=== PATIENT | female | born 1960 | race Caucasian/White ===

== ENCOUNTER → 2018-01-07 10:40 | Outpatient (CLI) | payer OTHER, SELFPAY ==
--- NOTE | 2018-01-07 10:50 | XR_ITS ---
XR shoulder RT min 2V COMPARISON: PA and lateral chest 10/07/2016 HISTORY: Right shoulder pain after a fall TECHNIQUE: 3 views right shoulder FINDINGS: The lateral clavicle appears intact. The AC joint is grossly normal though there is minimal spurring of the proximal clavicle inferiorly. There also is a slightly lateral downsloping acromion process and these 2 findings could predispose to impingement syndrome. Humeral head and glenoid appear intact. There are no soft tissue calcifications. IMPRESSION: Mild degenerative changes of the AC joint along with downsloping acromion process, no definite acute fracture seen
--- NOTE | 2018-01-07 10:54 | XR_ITS ---
XR humerus RT COMPARISON: None HISTORY: Right arm pain after a fall TECHNIQUE: 3 views right humerus FINDINGS: Humeral head and humeral shaft appear intact with no evidence of recent or old fracture. The supracondylar humerus appears normal. The soft tissues are grossly normal with no foreign body seen. IMPRESSION: Negative right humerus
== END ==
PROVIDERS: PCP Internal Medicine; Visit Provider Internal Medicine
DX: M25.511 Pain in right shoulder (principal); M79.601 Pain in right arm
CPT/HCPCS: 73030; 73060

== ENCOUNTER 2018-02-08 09:00 | Outpatient (RCR) | payer OTHER, SELFPAY ==
--- NOTE | 2018-01-21 11:49 | HMH.PTOPEV ---
Rehab Outpatient Evaluation Rehab OP Evaluation Start: 01/21/18 10:32 Freq: Status: Active Protocol: Document 01/21/18 10:33 TFRY (Rec: 01/21/18 10:47 TFRY [id number]) Electronically Signed By Delisa Loyd OT 01/21/18 10:33 Outpatient Therapy Subjective History Subjective History THIS IS A 58 YEAR OLD RIGHT HANDED FEMALE REFERRED TO OCCUPATIONAL THERAPY FOR RIGHT SHOULDER PAIN. PATIENT REPORTS FALLING WITH AN OUTSTRETCHED ARM [place] ON December. PATIENT REPORTS THAT SHE WENT TO HER DOCTORS AND HAD A X-RAY DONE. Chief Complaint Pain Symptom Type Ache Throb Numbness Symptoms Relieved By Nothing Symptoms Aggravated By Physical Activity Prior Functional Limitations None Current Functional Limitations Reaching Lifting Housework Dressing Driving Sleeping Symptom Description Constant and Continuous Level of pain today (0-10) 9 Pain scale - at its best (0-10) 8 Pain scale - at its worst (0-10) 9 Shoulder/Elbow Eval Shoulder Objective Measurements Palpation Tenderness tenderness shoulder exam standard right tenderness over the bicipital tendon right shoulder exam standard Shoulder Palpation Findings Tenderness Flexibilty Deficits Shoulder External Rotators Muscle Length (R) Moderate Tightness Shoulder Internal Rotators Muscle Length (R) Moderate Tightness Upper Trapezius Muscle Length (R) Severe Tightness Shoulder ROM Right Shoulder ROM Limitations Pain Shoulder Abduction Active Range of 38 Motion (degrees) Shoulder Abduction Passive Range of 45 Motion (degrees) Shoulder Flexion Active Range of Motion 40 (degrees) Query Text: Shoulder Flexion Passive Range of Motion 50 (degrees) Shoulder External Rotation Active Range 22 of Motion (degrees) Shoulder External Rotation Passive Range 40 of Motion (degrees) Shoulder Internal Rotation Active Range WFL IN GRAVITY ELIM of Motion (degrees) Shoulder Internal Rotation Passive Range 30 of Motion (degrees) Shoulder Extension Active Range of 30 Motion (degrees) pain with active ROM shoulder exam right standard pain with passive
== END 2018-02-08 09:01 | disposition home or self-care (01) ==
LOC: OT 09:00
PROVIDERS: Family Provider Internal Medicine; PCP Internal Medicine; Visit Provider Internal Medicine
DX: M25.511 Pain in right shoulder (principal)
CPT/HCPCS: 97014; 97033; 97110; 97140; 97163; 97165; G0283

== ENCOUNTER → 2018-02-10 12:57 | Outpatient (CLI) | payer OTHER, SELFPAY ==
--- NOTE | 2018-02-10 13:01 | MR_ITS ---
MR shoulder RT wo con COMPARISON: 01/07/2018 radiograph HISTORY: Right shoulder pain, rotator cuff tear, injury with pain with limited range of motion with pain radiating down the right arm ORDERING PHYSICIAN: Kemar Gerard PATIENT AGE: 58 years TECHNIQUE: Routine multiplanar multiecho sequences are performed without contrast FINDINGS: There is complete tear of the supraspinatus and infraspinatus tendons with retraction of the musculotendinous fibers. There is severe subacromial stenosis of 3 mm. Hypertrophic changes are also present at the acromioclavicular joint. Moderate-sized shoulder joint effusion is present. The subscapularis and teres minor tendons appear intact. There is thickening of the subscapularis tendon with increased T2 signal consistent with tendinopathy/tendinosis. No obvious labral tear. Moderate amount fluid is present in the bicipital tendon sheath which does appear in place. No fracture is evident. There is mild superior location of the humeral head within the glenoid. Mild irregularity involves the humeral head at the greater tuberosity. There is a 7 mm area of decreased T1 and increased T2 signal involving the medial aspect of the proximal humeral shaft posteriorly. No radiographic abnormality apparent at this region. Etiology indeterminate. IMPRESSION: 1. Complete tear of the supraspinatus and infraspinatus tendons with retraction of the musculotendinous fibers. 2. 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 Moderate-sized shoulder joint effusion. 3. Tendinopathy/tendinosis of the subscapularis tendon. 4. Indeterminate 7 mm T2 hyperintensity of the proximal humeral shaft posteriorly and medially. Consider short-term follow-up to confirm stability
== END ==
PROVIDERS: Family Provider Internal Medicine; PCP Internal Medicine; Visit Provider Internal Medicine
DX: M25.511 Pain in right shoulder (principal)
CPT/HCPCS: 73221

== ENCOUNTER 2018-04-07 10:00 | Outpatient (RCR) | payer OTHER, SELFPAY | END 2018-04-07 10:01 | disposition home or self-care (01) | LOC: PT 10:00 | PROVIDERS: Family Provider Internal Medicine; PCP Internal Medicine; Visit Provider Orthopaedic Surgery | DX: M75.101 Unspecified rotator cuff tear or rupture of right shoulder, not specified as traumatic (principal) | CPT/HCPCS: 97010; 97014; 97016; 97110; 97140; 97163; G0283 ==

== ENCOUNTER 2018-07-21 08:00 | Outpatient (RCR) | payer OTHER, SELFPAY | END 2018-07-21 08:01 | disposition home or self-care (01) | LOC: OT 08:00 | PROVIDERS: Family Provider Internal Medicine; PCP Internal Medicine; Visit Provider Orthopaedic Surgery | DX: M75.121 Complete rotator cuff tear or rupture of right shoulder, not specified as traumatic | CPT/HCPCS: 97014; 97110; 97140; 97165; G0283 ==

== ENCOUNTER → 2019-06-30 09:06 | Outpatient (CLI) | payer OTHER, SELFPAY ==
--- NOTE | 2019-06-30 09:17 | XR_ITS ---
PROCEDURE: XR HIP LT 2-3V W/PELVIS Patient Age:59Y CLINICAL INDICATION: hip pain Bilateral hip pain extends down legs 1 month COMPARISON: ABDPELW/O CT ABD PEL from 05/21/2014 FINDINGS: Left hip no fracture or dislocation is evident. No significant degenerative change. No lytic or blastic change. The left hip is intact with no acute findings.. No change since 2014 CT abdomen, pelvis The left femoral head and neck intact and trochanteric region intact The left femoral head normal contour, with normal density. The left hip joint space is fairly well maintained; only question of some scant minor relative narrowing towards superior medial aspect left hip joint space. This was evident on 2014 CT is well. Also suggestion scant sclerosis at roof of left acetabulum more so than right.. Subtle observation, but could reflect reflect some very minor degenerative changes left hip. I would also note that on this and previous studies the left acetabulum and very very slight less coverage of the femoral head than the right. This could merely reflect some early hypertrophic lipping developing at right acetabulum but is noted... Very minor sclerosis seen towards the pubis bilaterally was seen on and 2014 CT exam as was the postsurgical from previous diskectomy and posterior fusion changes lower L-spine IMPRESSION: The left hip is intact with no acute findings.. No change since 2014 CT abdomen, pelvis The hip joint spaces well maintained bilaterally with only question of subtle relative, borderline narrowing towards superior medial aspect of left hip joint space along with minor questionable sclerosis superior left hip joint. The these features could reflect some very subtle early degenerative changes but unimpressive and equivocal. Additional comments in text . Postsurgical changes lower L-spine Dictated by: Dieter Stern MD 06/30/2019 11:22 Electronically signed by Dieter Stern MD in [place] 06/30/2019 11:22
--- NOTE | 2019-06-30 09:17 | XR_ITS ---
PROCEDURE: XR HIP RT 2-3V W/PELVIS Patient Age:59Y CLINICAL INDICATION: hip pain . bilateral hip pain. Radiates down legs 1 month no surgeries, pain with laying on side COMPARISON: ABDPELW/O CT ABD PEL from 05/21/2014 XR HIP LT 2-3V W/PELVIS from 06/30/2019 FINDINGS: Right hip intact. Joint space well maintained. Right femoral head normal contour and density. Acetabulum adequately covers the right femoral head bilaterally, this being very slightly more evident right than left. No fracture or dislocation is evident. AP pelvis. Osseous pelvis intact. The SI joints sacrum unremarkable. Iliac bone unremarkable. Right hip appears satisfactory joint space well maintained on this view. Postsurgical changes lower L-spine. Posterior fusion with disc spacer device in place lower L-spine partially imaged. IMPRESSION: Right hip intact. AP pelvis intact. No acute findings. Stable appearance at hips and pelvis cents CT April 2014 Postsurgical changes lower L-spine: Discectomy with posterior fusion lower L-spine partially imaged again noted Dictated by: Dieter Stern MD 06/30/2019 11:24 Electronically signed by Dieter Stern MD in [place] 06/30/2019 11:24
== END ==
PROVIDERS: PCP Internal Medicine; Visit Provider Orthopaedic Surgery
DX: M25.552 Pain in left hip (principal); M25.551 Pain in right hip
CPT/HCPCS: 73502

== ENCOUNTER → 2019-11-28 10:27 | Outpatient (POV) | payer OTHER, SELFPAY | PROVIDERS: Visit Provider Otolaryngology | DX: Z00.00 Encounter for general adult medical examination without abnormal findings (principal) ==

== ENCOUNTER 2020-01-03 08:30 | Outpatient (RCR) | payer OTHER, SELFPAY | END 2020-01-03 09:30 | disposition home or self-care (01) | LOC: PT 08:30 | PROVIDERS: Visit Provider Internal Medicine | DX: M54.2 Cervicalgia (principal) | CPT/HCPCS: 20560; 97010; 97012; 97014; 97035; 97110; 97163; G0283 ==

== ENCOUNTER → 2020-02-22 13:37 | Outpatient (CLI) | payer OTHER, SELFPAY ==
--- NOTE | 2020-02-22 13:42 | MR_ITS ---
PROCEDURE: MR CERVICAL SPINE WO CON CLINICAL INDICATION: RADICULAR PAIN, LEFT NECK AND UPPER ARM Neck pain, left neck and shoulder pain COMPARISON: [employer]/O MRI-C-SPINE W/O from 05/07/[address] HEAD W/O CONTRAST from 10/07/2016 TECHNIQUE: Standard multiplanar multiecho sequences are performed without contrast. 3-D MIP and myelographic images are also rendered and reviewed FINDINGS: Study is somewhat limited technically due to motion artifact and low signal to noise ratio specially on the axial images. There is normal alignment. The craniocervical junction has an unremarkable appearance. C2-C3 and C3-C4 have an unremarkable appearance. C4-C5: Mild degenerative disc disease with bulging disc. There is mild bilateral uncovertebral hypertrophy. There is mild narrowing of the canal at this level at 10 mm C5-C6: Degenerate disc disease with bulging disc. There is mild bilateral uncovertebral hypertrophy. There is mild narrowing of the canal at this level at 10 mm C6-C7: There is a small broad-based left paracentral disc protrusion causing left lateral recess narrowing. There is 3 mm anterolisthesis of T2 on T3 and T3 on T4. Small central disc protrusion noted at T3-T4 only imaged in the sagittal plane. IMPRESSION: Study is somewhat limited technically due to motion artifact. There is multilevel degenerative disc disease with bulging disc and uncovertebral hypertrophy. Overall, these findings appear slightly worse compared to 05/07/2015 however, it is difficult to this compare the 2 exams due to the limitations on today's exam. Please see above for detail. There is a small left paracentral disc protrusion at C6-C7 not readily apparent on the previous exam. There is a small central disc protrusion at T3-T4. Dictated by: Kendell Madera MD 02/23/2020 10:01 Electronically signed by Kendell Madera MD in [place] 02/23/2020 10:01
== END ==
PROVIDERS: Visit Provider Internal Medicine
DX: M47.22 Other spondylosis with radiculopathy, cervical region (principal)
CPT/HCPCS: 72141; 76376

== ENCOUNTER → 2020-03-12 08:38 | Outpatient (POV) | payer OTHER, SELFPAY ==
[2020-03-12 08:54] VITALS: BP 132/84; PULSE 85; RESP 18; TEMP 36.6; O2SAT 98; BMI 25.7
--- NOTE | 2020-03-12 09:31 | HMH.PMCON ---
Assessment and Plan (1) Degenerative disc disease, cervical Current visit: Yes Status: Chronic Category: Medical Code(s): M50.30 - Other cervical disc degeneration, unspecified cervical region - Assessment and plan all Dx Assessment and Plan for all problems:: We will schedule a C5-C6 cervical epidural steroid injection for the patient to see if this is beneficial. I will follow-up with her after this and reassess her symptoms at that time patient has been instructed to call the office if she has any issues prior to her next appointment. Dr. Little has reviewed this note and agrees with this plan of care. This note was dictated using voice recognition software and may contain errors or omissions HPI - Data of Consult Consult date: 03/12/20 Requesting Physician: Rajwinder Coyle APRN Primary Care Provider: Kemar Gerard - Consult Narrative Reason for consult: Neck pain History of present illness: Ms. Arrington is a 60 year old female who presents today for consultation in regards to cervical neck pain. Patient has had pain for quite some time however it is worsened over the last couple months she rates it a 7 out of 10. She has neck and left shoulder pain. She has trouble sleeping and laying on her left side. She is on meloxicam which does not seem to help. Patient tried physical therapy but it was not beneficial. She also did dry needling which was not beneficial. Patient has had multiple low back surgeries in the past. Patient and I discussed epidural steroid injection she is interested in pursuing this. She is not on any anticoagulation therapy. CC: Rajwinder Coyle APRN [facility] History I have reviewed the patient's past medical history: Yes Medical History: Reports:: Hypertension Denies:: Cancer, Diabetes Mellitus Type 1, Diabetes Mellitus Type 2, MRSA *Have you ever received a pneumonia vaccine?: Yes *Have you received a flu vaccine this season?: Yes Other Medical History: Reports: Arthritis, Hypothyroidism, Thyroid Disease Other Surgeries: Yes: Cholecystectomy, Colonoscopy, Other Amputation: No Fractures: No - *Social History Smoking Status: Never smoker Alcohol Intake: never Substance Use Type: denies use *Occupational Status:: other Housing: house Household Members: other *Travel in the last 8 weeks: None Family Hx:: Unable to obtain Review of Systems - Review of Systems ROS General: no recent weight change, no fever, no sleep disturbances Respiratory: no cough, no shortness of air, no recurring pulmonary infections Cardiovascular/Peripheral Vascular: No chest pain, No palpitations, no edema, no shortness of breath. Gastrointestinal: no new onset incontinence, normal bowel movements reported Genitourinary: no new onset incontinence Musculoskeletal: Neck pain, left shoulder pain Psychiatric: normal mood/ affect, Neurological: [denies new onset weakness in extremities], [denies new onset balance issues] Meds Home Medications Medication Instructions Recorded Confirmed Type levothyroxine 50 mcg capsule 50 mcg PO DAILY 07/27/18 06/30/19 History lisinopril 10 mg tablet 10 mg PO DAILY 07/27/18 06/30/19 History omeprazole 40 mg capsule,delayed 40 mg PO DAILY 06/30/19 06/30/19 History release meloxicam 7.5 mg tablet 7.5 mg PO DAILY #30 tab 01/11/20 Rx Allergies Allergy/AdvReac Type Severity Reaction Status Date / Time No Known Allergies Allergy Verified 06/30/19 09:59 Objective Vital signs: Temp Pulse Resp BP Pulse Ox 97.8 F 85 18 132/84 98 03/12/20 08:54 03/12/20 08:54 03/12/20 08:54 03/12/20 08:54 03/12/20 08:54 Narrative: Physical Exam General: Alert and oriented x3, no acute distress, pleasant and cooperative, [on room air] Lungs: Resps E/U, Symmetrical chest expansion, Eyes: PERRL Musculoskeletal: Flexion and extension of cervical spine somewhat guarded secondary to pain, deep tendon reflexes normal, strength in upper a
== END ==
PROVIDERS: PCP Internal Medicine; Visit Provider Clinical Nurse Specialist Family Health
DX: M50.30 Other cervical disc degeneration, unspecified cervical region (principal)
CPT/HCPCS: 99202

== ENCOUNTER 2020-03-22 10:24 | Day surgery (SDC) | payer OTHER, SELFPAY ==
[2020-03-22 11:10] VITALS: BP 125/83; PULSE 68; RESP 18; TEMP 36.6; O2SAT 98; BMI 25.7
[2020-03-22 11:29] VITALS: BP 144/68; PULSE 72; RESP 18
[2020-03-22 11:30] VITALS: BP 145/78; PULSE 85; RESP 18; O2SAT 98
[2020-03-22 11:43] VITALS: BP 137/75; PULSE 66; RESP 20; O2SAT 98
--- NOTE | 2020-03-22 12:25 | HMH.PMPROC ---
- Procedure Date: 03/22/20 Time: 12:25 Anesthesiologist:: Franco Little MD Complications:: None Pre-procedure Diagnosis:: Degenerative disc disease of the cervical spine with cervical radiculopathy symptoms Post-procedure Diagnosis:: Same Indications for Procedure:: This patient is a pleasant 60-year-old white female who we are treating for neck pain with cervical radiculopathy symptoms. She has increasing pain in her neck radiating to her left shoulder. We will do a cervical epidural steroid injection today to help her with her pain symptoms. Procedure Details:: Cervical epidural steroid injection under fluoroscopy Informed consent was obtained and the risks and benefits of the procedure was explained to the patient. The patient was taken to the procedure room placed prone on the procedure table. The neck was prepped using ChloraPrep. The skin and subcutaneous tissues were anesthetized using lidocaine. I placed a 18-gauge epidural needle into the C5-C6 interspace and advanced using [id number] to air and fluoroscopic guidance. After confirmation of needle placement in the epidural space with dye, I injected 3 mL's lidocaine 1.5% and Depo-Medrol 80 mg. The patient tolerated the procedure well with no complications. Plan and Disposition:: We will follow-up with her in 2 weeks. Will reevaluate her symptoms at that time.
== END 2020-03-22 11:44 | disposition home or self-care (01) ==
LOC: SC.PAINP 10:25
PROVIDERS: PCP Internal Medicine; Visit Provider Anesthesiology
DX: M50.10 Cervical disc disorder with radiculopathy, unspecified cervical region (principal); I10 Essential (primary) hypertension; E03.9 Hypothyroidism, unspecified; Z79.899 Other long term (current) drug therapy
CPT/HCPCS: 62321; J1040; Q9966

== ENCOUNTER → 2020-04-09 16:13 | Outpatient (CLI) | payer OTHER, SELFPAY ==
[2020-04-09 16:15] LABS: Microscopic, Urine URINE MICROSCOPIC (MICROSCOPIC)
[2020-04-09 16:35] LABS: Appearance,Urine CLEAR (Clear); Bilirubin,Urine Negative (Negative); Blood, Urine TRACE-L (Negative); Color,Urine YELLOW (Yellow); Glucose,Urine (UA) Negative (Negative); Ketones,Urine Negative (Negative); Leukocyte Esterase,Urine 1+ (Negative); Nitrate,Urine Negative (Negative); Protein,Urine Negative (Negative); Specific Gravity, Urine 1.015 (1.005-1.030); Urobilinogen,Urine 0.2 EU/dl (0.2)
[2020-04-09 17:08] LABS: Bacteria,Urine Trace /lpf
== END ==
PROVIDERS: Visit Provider Internal Medicine
DX: N39.0 Urinary tract infection, site not specified (principal)
CPT/HCPCS: 81001; 87086; 87088; 87186

== ENCOUNTER → 2020-04-22 09:02 | Outpatient (POV) | payer OTHER, SELFPAY ==
[2020-04-22 09:16] VITALS: BP 175/85; PULSE 65; RESP 18; O2SAT 98; BMI 25.7
--- NOTE | 2020-04-22 09:26 | P.CONS_ITS ---
[facility] Pain Management SOAP Note Subjective:: Patient is a pleasant 60-year-old white female who presents today for follow-up after cervical epidural steroid injection. She states she got over 80% relief of her pain. Slowly returning she rates it a 5 out of 10 today. Patient is interested in finishing her epidural series of 3. She would like to move forward with this. She is not on any anticoagulation therapy. ROS General: no recent weight change, no fever, no sleep disturbances Respiratory: no cough, no shortness of air, no recurring pulmonary infections Cardiovascular/Peripheral Vascular: No chest pain, No palpitations, no edema, no shortness of breath. Gastrointestinal: no new onset incontinence, normal bowel movements reported Genitourinary: no new onset incontinence Musculoskeletal: Neck pain, left arm pain at times Psychiatric: normal mood/ affect Neurological: [denies new onset weakness in extremities], [denies new onset balance issues] Objective:: Physical Exam General: Alert and oriented x3, no acute distress, pleasant and cooperative, [on room air] Lungs: Resps E/U, Symmetrical chest expansion, Eyes: PERRL Musculoskeletal: Flexion and extension of cervical spine somewhat guarded secondary to pain, deep tendon reflexes normal, strength in upper and lower extremities [5/5], normal gait noted Neurological: speech clear, computer networking instructor equal, no gross sensory deficits Assessment:: Degenerative disc disease cervical spine with cervical radiculopathy symptoms Plan:: We will set her up for repeat C5-C6 cervical epidural steroid injection given the efficacy of the last one. I will follow-up with her after this reassess her symptoms at that time she has been instructed to call the office if she has any issues prior to her next appointment. Dr. Little has reviewed this note and agrees with this plan of care. This note was dictated using voice recognition software and may contain errors or omissions [facility] History I have reviewed the patient's past medical history: Yes Medical History: Reports:: Hypertension Denies:: Cancer, Diabetes Mellitus Type 1, Diabetes Mellitus Type 2, MRSA, Seizures *Have you ever received a pneumonia vaccine?: Yes *Have you received a flu vaccine this season?: Yes Other Medical History: Reports: Arthritis, Hypothyroidism, Thyroid Disease Other Surgeries: Yes: Cholecystectomy, Colonoscopy, Other Amputation: No Fractures: No - *Social History Smoking Status: Never smoker Alcohol Intake: never Substance Use Type: denies use *Occupational Status:: other Housing: house Household Members: other *Travel in the last 8 weeks: None Family Hx:: Unable to obtain
== END ==
PROVIDERS: PCP Internal Medicine; Visit Provider Clinical Nurse Specialist Family Health
DX: M50.10 Cervical disc disorder with radiculopathy, unspecified cervical region (principal)
CPT/HCPCS: 99212

== ENCOUNTER 2020-05-10 11:24 | Day surgery (SDC) | payer OTHER, SELFPAY ==
[2020-05-10 11:36] VITALS: BP 135/78; PULSE 74; RESP 18; TEMP 36.4; O2SAT 100; BMI 25.7
[2020-05-10 12:23] VITALS: BP 140/85; PULSE 79; RESP 18; O2SAT 99
[2020-05-10 12:24] VITALS: BP 138/88; PULSE 79; RESP 18; O2SAT 98
--- NOTE | 2020-05-10 12:28 | HMH.PMPROC ---
- Procedure Date: 05/10/20 Time: 12:28 Anesthesiologist:: Franco Little MD Complications:: None Pre-procedure Diagnosis:: Degenerative disc disease of cervical spine with cervical radiculopathy symptoms Post-procedure Diagnosis:: Same Indications for Procedure:: This patient is a pleasant 60-year-old white female who we are treating for neck pain with cervical radiculopathy symptoms. She did very well after her last cervical epidural steroid injection. She was 80% better. Her pain is just now starting to return. We will do a repeat cervical epidural steroid injection under fluoroscopy today. Procedure Details:: Cervical epidural steroid injection under fluoroscopy Informed consent was obtained and the risks and benefits of the procedure was explained to the patient. The patient was taken to the procedure room placed prone on the procedure table. The neck was prepped using ChloraPrep. The skin and subcutaneous tissues were anesthetized using lidocaine. I placed a 18-gauge epidural needle into the C5-C6 interspace and advanced using [id number] to air and fluoroscopic guidance. After confirmation of needle placement in the epidural space with dye, I injected 3 mL's lidocaine 1.5% and Depo-Medrol 80 mg. The patient tolerated the procedure well with no complications. Plan and Disposition:: We will follow-up with her in 2 weeks. Will reevaluate symptoms at that time.
[2020-05-10 12:34] VITALS: BP 154/92; PULSE 69; RESP 18; O2SAT 99
== END 2020-05-10 12:35 | disposition home or self-care (01) ==
LOC: SC.PAINP 11:25
PROVIDERS: PCP Internal Medicine; Visit Provider Anesthesiology
DX: M50.10 Cervical disc disorder with radiculopathy, unspecified cervical region (principal); I10 Essential (primary) hypertension; Z90.49 Acquired absence of other specified parts of digestive tract
CPT/HCPCS: 62321; J1040; Q9966

== ENCOUNTER → 2020-05-14 16:13 | Outpatient (CLI) | payer OTHER, SELFPAY | PROVIDERS: Visit Provider Urology | DX: N39.0 Urinary tract infection, site not specified (principal) | CPT/HCPCS: 87086; 87088; 87186 ==

== ENCOUNTER → 2020-05-27 09:01 | Outpatient (POV) | payer OTHER, SELFPAY ==
[2020-05-27 09:42] VITALS: BP 125/88; PULSE 85; RESP 18; O2SAT 98; BMI 25.7
--- NOTE | 2020-05-27 10:00 | HMH.PAINSOAP ---
[facility] Pain Management SOAP Note Subjective:: Patient is a pleasant 60-year-old white female presents today for follow-up after her second cervical epidural steroid injection. Patient still got 80% relief however she does not feel like it is lasting as long as her original injection. Patient would like to finish her series of 3 cervical epidural steroid injections. She rates her pain a 6 out of 10. She has pain in her neck radiating down her left arm. She is not on any anticoagulation therapy. She is continuing a home stretching program. ROS General: no recent weight change, no fever, no sleep disturbances Respiratory: no cough, no shortness of air, no recurring pulmonary infections Cardiovascular/Peripheral Vascular: No chest pain, No palpitations, no edema, no shortness of breath. Gastrointestinal: no new onset incontinence, normal bowel movements reported Genitourinary: no new onset incontinence Musculoskeletal: Neck pain, left arm pain Psychiatric: normal mood/ affect Neurological: [denies new onset weakness in extremities], [denies new onset balance issues] Objective:: Physical Exam General: Alert and oriented x3, no acute distress, pleasant and cooperative, [on room air] Lungs: Resps E/U, Symmetrical chest expansion, Eyes: PERRL Musculoskeletal: Flexion and extension of cervical spine somewhat guarded secondary to pain, deep tendon reflexes normal, strength in upper and lower extremities [5/5], normal gait noted Neurological: speech clear, certified hyperbaric technician equal, no gross sensory deficits Assessment:: Degenerative disc disease cervical spine cervical radiculopathy Plan:: We will schedule the patient for repeat C5-C6 cervical epidural steroid injection. Given the efficacy of her previous injections I do believe it would benefit her. Patient's been instructed call the office if she has any issues prior to her next appointment. Dr. Little has reviewed this note and agrees with this plan of care. This note was dictated using voice recognition software and may contain errors or omissions [facility] History I have reviewed the patient's past medical history: Yes Medical History: Reports:: Hypertension Denies:: Cancer, Diabetes Mellitus Type 1, Diabetes Mellitus Type 2, MRSA, Seizures *Have you ever received a pneumonia vaccine?: Yes *Have you received a flu vaccine this season?: Yes Other Medical History: Reports: Arthritis, Hypothyroidism, Thyroid Disease Other Surgeries: Yes: Cholecystectomy, Colonoscopy, Other Amputation: No Fractures: No - *Social History Smoking Status: Never smoker Alcohol Intake: never Substance Use Type: denies use *Occupational Status:: other Housing: house Household Members: other *Travel in the last 8 weeks: None Family Hx:: Unable to obtain
== END ==
PROVIDERS: PCP Internal Medicine; Visit Provider Clinical Nurse Specialist Family Health
DX: M50.10 Cervical disc disorder with radiculopathy, unspecified cervical region (principal)
CPT/HCPCS: 99212

== ENCOUNTER 2020-06-14 08:53 | Day surgery (SDC) | payer OTHER, SELFPAY ==
[2020-06-14 09:05] VITALS: BP 127/72; PULSE 73; RESP 18; TEMP 35.9; O2SAT 100; BMI 25.7
[2020-06-14 09:25] VITALS: BP 159/68; PULSE 73; RESP 18; O2SAT 99
[2020-06-14 09:27] VITALS: BP 160/71; PULSE 74; RESP 18; O2SAT 99
--- NOTE | 2020-06-14 09:34 | HMH.PMPROC ---
- Procedure Date: 06/14/20 Time: 09:34 Anesthesiologist:: Franco Little MD Complications:: None Pre-procedure Diagnosis:: Degenerative disc disease of the cervical spine with cervical radiculopathy symptoms Post-procedure Diagnosis:: Same Indications for Procedure:: This patient is a pleasant 60-year-old white female who we are treating for neck pain with cervical radicular symptoms. She has had 2 cervical epidural steroid injection she is 88% better. She still has some residual pain. We will do a repeat cervical epidural steroid injection today to help her with her residual pain symptoms. Most of her pain is in the neck radiating to the left arm. Procedure Details:: Cervical epidural steroid injection under fluoroscopy Informed consent was obtained and the risks and benefits of the procedure was explained to the patient. The patient was taken to the procedure room placed prone on the procedure table. The neck was prepped using ChloraPrep. The skin and subcutaneous tissues were anesthetized using lidocaine. I placed a 18-gauge epidural needle into the C5-C6 interspace and advanced using [id number] to air and fluoroscopic guidance. After confirmation of needle placement in the epidural space with dye, I injected 3 mL's lidocaine 1.5% and Depo-Medrol 80 mg. The patient tolerated the procedure well with no complications. Plan and Disposition:: We will follow-up with her in 2 weeks. Will reevaluate symptoms at that time.
[2020-06-14 09:35] VITALS: BP 139/75; PULSE 71; RESP 18; O2SAT 100
== END 2020-06-14 09:36 | disposition home or self-care (01) ==
LOC: SC.PAINP 08:53
PROVIDERS: PCP Internal Medicine; Visit Provider Anesthesiology
DX: M50.10 Cervical disc disorder with radiculopathy, unspecified cervical region (principal)
CPT/HCPCS: 62321; J1040; Q9966

== ENCOUNTER → 2020-07-08 09:33 | Outpatient (POV) | payer OTHER, SELFPAY ==
[2020-07-08 09:50] VITALS: BP 141/71; PULSE 84; RESP 18; O2SAT 98; BMI 25.7
--- NOTE | 2020-07-08 10:00 | P.CONS_ITS ---
[facility] Pain Management SOAP Note Subjective:: Patient is a 60-year-old white female who we are treating for neck pain. Patient states that she got extremely good relief with her first injection however her last 2 injections were not as beneficial. She rates her pain a 5 out of 10. Patient has very focal left-sided pain. Patient and I discussed a medial branch block. She may be a neurotomy candidate. She is not on any anticoagulation therapy. She is on anti-inflammatories. We also discussed a compounding cream which we will move forward with. She has tried and failed other conservative treatment such as physical therapy. She is continuing a home stretching program and trying to stay as active as possible. ROS General: no recent weight change, no fever, no sleep disturbances Respiratory: no cough, no shortness of air, no recurring pulmonary infections Cardiovascular/Peripheral Vascular: No chest pain, No palpitations, no edema, no shortness of breath. Gastrointestinal: no new onset incontinence, normal bowel movements reported Genitourinary: no new onset incontinence Musculoskeletal: Neck pain Psychiatric: normal mood/ affect, Neurological: [denies new onset weakness in extremities], [denies new onset balance issues] Objective:: Physical Exam General: Alert and oriented x3, no acute distress, pleasant and cooperative, [on room air] Lungs: Resps E/U, Symmetrical chest expansion, Eyes: PERRL Musculoskeletal: Flexion and extension of cervical spine somewhat guarded secondary to pain, deep tendon reflexes normal, strength in upper and lower extremities [5/5], normal gait noted, cervical facet joints tender to palpation on the left side. Neurological: speech clear, nurse staff community health equal, no gross sensory deficits Assessment:: Degenerative disc disease cervical spine cervical facet arthropathy Plan:: We will plan a C4-C5 C5-C6 left-sided medial branch block for the patient. I do believe this would benefit her given her symptomology. I will follow-up with her afterwards reassess her symptoms at that time. We will also start her on an anti-inflammatory compounding cream. If she has any questions prior to her next appointment she has been instructed to call the office. Dr. Little has reviewed this note and agrees with this plan of care. This note was dictated using voice recognition software and may contain errors or omissions [facility] History I have reviewed the patient's past medical history: Yes Medical History: Reports:: Hypertension Denies:: Cancer, Diabetes Mellitus Type 1, Diabetes Mellitus Type 2, MRSA, Seizures *Have you ever received a pneumonia vaccine?: Yes *Have you received a flu vaccine this season?: Yes Other Medical History: Reports: Arthritis, Hypothyroidism, Thyroid Disease Other Surgeries: Yes: Cholecystectomy, Colonoscopy, Other Amputation: No Fractures: No - *Social History Smoking Status: Never smoker Alcohol Intake: never Substance Use Type: denies use *Occupational Status:: other Housing: house Household Members: other *Travel in the last 8 weeks: None Family Hx:: Unable to obtain
== END ==
PROVIDERS: PCP Internal Medicine; Visit Provider Clinical Nurse Specialist Family Health
DX: M50.30 Other cervical disc degeneration, unspecified cervical region (principal); M47.812 Spondylosis without myelopathy or radiculopathy, cervical region
CPT/HCPCS: 99212

== ENCOUNTER 2020-07-19 08:52 | Day surgery (SDC) | payer OTHER, SELFPAY ==
[2020-07-19 09:06] VITALS: BP 143/76; PULSE 74; RESP 18; TEMP 36.4; O2SAT 99; BMI 25.7
[2020-07-19 09:49] VITALS: BP 145/74; PULSE 85; RESP 18
[2020-07-19 09:50] VITALS: BP 142/77; PULSE 85; RESP 18; O2SAT 98
[2020-07-19 09:56] VITALS: BP 137/75; PULSE 67; RESP 20; O2SAT 99
--- NOTE | 2020-07-19 10:23 | HMH.PMPROC ---
- Procedure Date: 07/19/20 Time: 10:23 Anesthesiologist:: Franco Little MD Complications:: None Pre-procedure Diagnosis:: Degenerative disc disease of the cervical spine with cervical facet arthropathy and cervical spondylosis Post-procedure Diagnosis:: Same Indications for Procedure:: This patient is a pleasant 60-year-old white female who we are treating for left-sided neck pain with cervical facet arthropathy and cervical spondylosis. She did get significant relief after her first cervical epidural steroid injection. The last 2 injections have not given her as much relief. She primarily has left-sided axial neck pain. She is tender over the facet joints of C4-5 and C5-C6. We will do left-sided cervical medial branch blocks of C4-C5 and C5-C6 today. Procedure Details:: Cervical medial branch block Informed consent was obtained and the risk and benefits of the procedure was explained to the patient. The patient was into the procedure room and placed prone on the procedure table. The neck was prepped using ChloraPrep. C-arm fluoroscopy was used to view the cervical spine. The skin and subcutaneous tissues were anesthetized lidocaine. I placed 22-gauge spinal needles into the facet joints of C4-5 and C5-C6 on the left side. Needle placement was confirmed with dye. After this I injected 1 mL lidocaine 1.5% and Depo-Medrol 20 mg into each facet joint/medial branch of C4-5 and C5-6 on the left side.we injected a total of 40 mg of Medrol for both levels on the left side. Patient tolerated the procedure well with no complications. Plan and Disposition:: We will follow-up with her in 2 weeks. Will reevaluate her symptoms at that time. Successful we will plan on RF ablation to both levels on the left side.
== END 2020-07-19 09:57 | disposition home or self-care (01) ==
LOC: SC.PAINP 08:53
PROVIDERS: PCP Internal Medicine; Visit Provider Anesthesiology
DX: M50.30 Other cervical disc degeneration, unspecified cervical region (principal); M47.812 Spondylosis without myelopathy or radiculopathy, cervical region; M12.88 Other specific arthropathies, not elsewhere classified, other specified site; I10 Essential (primary) hypertension; K21.9 Gastro-esophageal reflux disease without esophagitis; E03.9 Hypothyroidism, unspecified; Z90.49 Acquired absence of other specified parts of digestive tract
CPT/HCPCS: 64490; 64491; J1040; Q9966

== ENCOUNTER → 2020-08-08 09:03 | Outpatient (POV) | payer OTHER, SELFPAY ==
[2020-08-08 09:21] VITALS: BP 125/88; PULSE 84; RESP 18; TEMP 36.3; O2SAT 99; BMI 25.7
--- NOTE | 2020-08-08 09:30 | HMH.PAINSOAP ---
[facility] Pain Management SOAP Note Subjective:: Patient is a pleasant 60-year-old white female who presents today for follow-up after a cervical medial branch block. She was having left-sided neck pain with cervical facet arthropathy and cervical spondylosis. Is the patient's second medial branch block. She had the injections at C4-C5 C5-C6. Patient says her pain is a 0 out of 10 today. She is doing well overall and says she does not need any further injective therapy at this time. Review of Systems General: No recent weight changes, no fever, no sleep disturbances Respiratory: No cough, no shortness of air, no recurring pulmonary infections Cardiovascular/peripheral vascular: No chest pain, no palpitations, no edema, no shortness of breath Gastrointestinal: No new onset incontinence, normal bowel movements reported Genitourinary: No new onset incontinence Musculoskeletal: Intermittent neck pain Psychiatric: Normal mood/affect Neurological: [Denies weakness in extremities], [denies balance issues] Objective:: Physical exam General: Alert and oriented x3, no acute distress, pleasant and cooperative, [on room air] Lungs: Respirations even and unlabored, symmetrical chest expansion Eyes: PERRL Musculoskeletal: Flexion and extension of cervical spine somewhat guarded secondary to pain, deep tendon reflexes normal, strength in upper and lower extremities [5/5], normal gait noted Neurological: Speech clear, retail commission sales associate equal, no gross sensory deficit Assessment:: Degenerative disc disease cervical spine with cervical facet arthropathy and cervical spondylosis Plan:: Overall, the patient is doing well since having her medial branch blocks. She would like to follow-up with us as needed. She has been instructed to contact clinic if she has any concerns before next appointment. The patient and I specifically discussed risk factors for COVID19. These risks include, but are not limited to age greater than 60, heart or lung disease, diabetes, immunosuppression, and travel. We also discussed NSAIDs may worsen COVID19 infection or symptoms. Patient should not use NSAIDs to treat COVID19 signs or symptoms. Patient was also informed that any type of corticosteroid of any form (oral or injection) will decrease the patient's immune system response and may increase the likelihood of COVID19 infection and symptoms[address] Dr. Little has reviewed this note and agrees with this plan of care. This note was dictated using voice recognition software and make contain errors or omissions. [facility] History I have reviewed the patient's past medical history: Yes Medical History: Reports:: Hypertension Denies:: Cancer, Diabetes Mellitus Type 1, Diabetes Mellitus Type 2, MRSA, Seizures *Have you ever received a pneumonia vaccine?: Yes *Have you received a flu vaccine this season?: Yes Other Medical History: Reports: Arthritis, Hypothyroidism, Thyroid Disease Other Surgeries: Yes: Cholecystectomy, Colonoscopy, Other Amputation: No Fractures: No - *Social History Smoking Status: Never smoker Alcohol Intake: never Substance Use Type: denies use *Occupational Status:: other Housing: house Household Members: spouse *Travel in the last 8 weeks: None Family Hx:: Unable to obtain
== END ==
PROVIDERS: PCP Internal Medicine; Visit Provider Clinical Nurse Specialist Family Health
DX: M50.30 Other cervical disc degeneration, unspecified cervical region (principal); M47.812 Spondylosis without myelopathy or radiculopathy, cervical region; M12.88 Other specific arthropathies, not elsewhere classified, other specified site
CPT/HCPCS: 99212

== ENCOUNTER → 2020-10-21 10:42 | Outpatient (CLI) | payer OTHER, SELFPAY ==
--- NOTE | 2020-10-21 10:52 | XR_ITS ---
PROCEDURE: XR FOOT LT MIN 3V CLINICAL INDICATION: LT FOOT PAIN COMPARISON: No exams were available for comparison FINDINGS: No fracture or dislocation. No lytic or blastic change. There is normal mineralization. The joint spaces are well-preserved. No significant degenerative/arthritic changes. No erosive changes evident. There is a rather prominent medial border of navicular bone probably due to a fused accessory navicular bone to the main body of the navicular and could be a cause for focal pain. There is a prominent spur of the calcaneus at the insertion of the plantar tendon and there is minimal calcification in the Achilles tendon near the attachment to the calcaneus. Other findings:None. IMPRESSION: Somewhat prominent medial border of the navicular bone which could possibly be a cause for focal pain Dictated by: Dr. Elton Santiago MD 10/21/2020 11:22 Dr. Elton aSntiago MD in [place] 10/21/2020 11:22
== END ==
PROVIDERS: PCP Internal Medicine; Visit Provider Internal Medicine
DX: M79.672 Pain in left foot (principal)
CPT/HCPCS: 73630

== ENCOUNTER 2021-01-16 08:00 | Outpatient (RCR) | payer OTHER, SELFPAY ==
--- NOTE | 2020-12-20 08:39 | HMH.PTOPEV ---
PT Outpatient Evaluation Rehab PT Outpatient Evaluation Start: 12/20/20 07:56 Freq: Status: Active Protocol: Document 12/20/20 08:21 HARSHIL (Rec: 12/20/20 08:39 PHORNIDHI [id number]) Electronically Signed By Spencer Soliman, PT 12/20/20 08:21 Outpatient Therapy Subjective History Subjective History Pt is 60 yowf who presents with c/o pain in L medial ankle x ~ 2 mos with insidipous onset of symptoms. She reports pain is sharp, burning, shooting, and throbbing. She has no known hx of injury in this area and X- ray performed was negative for acute injury. Pt reports pain with palpation and states, It hurts for my shoe or anything to even rub it. Pt has PMH of HTN. Chief Complaint Pain Symptom Type Ache,Throb,Sharp,Burning, Shooting Symptoms Relieved By Nothing Symptoms Aggravated By Standing,Physical Activity, Walking Prior Functional Limitations None Current Functional Limitations Sleeping,Standing,Recreation Activity,Walking Symptom Description Constant but Variable Level of pain today (0-10) 9 Pain scale - at its worst (0-10) 10 Ankle/Foot Eval Gait Observation General Gait Pattern Observation No Deviations/Normal Palpation Tenderness left Ankle/Foot Palpation Findings Tenderness Ankle/Foot Palpation Overall Comment L navicular area ROM Ankle/Foot Dorsiflexion w/Knee Extended 0-8 Active Range Motion (degrees) Ankle/Foot Plantar Flexion Active Range 0-40 of Motion (degrees) Ankle/Foot Eversion Active Range of 0-29 Motion (degrees) Ankle/Foot Inversion Active Range of 0-45 Motion (degrees) MMT Ankle Dorsiflexion Strength Grade 5 Normal Ankle Plantarflexion Strength Grade 5 Normal Foot Eversion Strength Grade 5 Normal Foot Inversion Strength Grade 5 Normal Special Tests Ankle Anterior Drawer Test Negative Left,Negative Right Ankle Eversion Test Negative Left,Negative Right Talar Tilt Test Negative Left,Negative Right Ankle Posterior Drawer Test Negative Left,Negative Right Foot/Heel Tap/Percussion Test Negative Left,Negative Right Outpatient Therapy Assessment Impairments Problems/Impairmments Palpation Tenderness,Impaired Walking,Impaired Standing, Impaired Recreational
== END 2021-01-16 08:05 | disposition home or self-care (01) ==
LOC: PT 08:00
PROVIDERS: PCP Internal Medicine; Visit Provider Podiatrist
DX: M76.822 Posterior tibial tendinitis, left leg (principal); M79.672 Pain in left foot
CPT/HCPCS: 97010; 97014; 97033; 97035; 97110; 97140; 97163; 97530; G0283

== ENCOUNTER → 2021-01-20 10:01 | Outpatient (CLI) | payer OTHER, SELFPAY ==
[2021-01-20 10:54] LABS: Blood Urea Nitrogen 27 mg/dl (7-17); Estimated Glomerular Filt Rate 46 ml/min (>60); GFR (African American) 55 ML/MIN (>60)
== END ==
PROVIDERS: Visit Provider Podiatrist
DX: M66.872 Spontaneous rupture of other tendons, left ankle and foot (principal); M76.822 Posterior tibial tendinitis, left leg; S86.112A Strain of other muscle(s) and tendon(s) of posterior muscle group at lower leg level, left leg, initial encounter
CPT/HCPCS: 36415; 82565; 84520

== ENCOUNTER → 2021-01-22 08:30 | Outpatient (CLI) | payer OTHER, SELFPAY ==
--- NOTE | 2021-01-22 08:31 | MR_ITS ---
PROCEDURE: MR FOOT LT WO/W CON CLINICAL INDICATION: Evaluate for insertional peroneal tendonitis. COMPARISON: X-ray of the foot dated October 21, 2020 TECHNIQUE: Routine multiplanar multi echo sequences are performed without gadolinium enhancement. FINDINGS: Fluid with T2 hyperintensity is noted adjacent to the tibialis posterior tendon, represents tendinopathy. No evidence of tendon tears noted. Flexor hallucis longus demonstrate minor adjacent signal abnormality with intact tendon. The extensor tendons are unremarkable. Tendinopathy is suspected. Signal abnormality noted in the peroneus brevis tendon, raises the concern for tendon tear. The peroneus longus appears intact. The Achilles tendon is intact. Fluid is noted in the retrocalcaneal bursa, may represent bursitis. The visualized syndesmotic ligaments, anterior and posterior talofibular ligaments are intact. Minor signal abnormality is noted adjacent to the deltoid ligament complex, raises the concern for sprain. Partial tears cannot be completely excluded. Bone marrow signal intensity is within normal limits without evidence of marrow infiltrative process. There is minor bone edema noted in the medial talar dome measuring 5 millimeters. No other evidence of osteochondral injury. There is T2 hyperintensity noted in the medial aspect of the navicular bone without evidence of acute fractures. The rest of the tarsals, metatarsals and visualized phalanges are unremarkable. IMPRESSION: Findings are suggestive of tibialis posterior and flexor hallucis longus tendinopathy. Tear of the peroneus brevis. Contusion of the navicular bone. Minor bone edema noted in the medial talar dome. No evidence of fractures. Fluid and T2 hyperintensity noted adjacent to the deltoid ligament complex, concerning for strain versus partial tear. Retrocalcaneal bursitis. Dictated by: Pauly Harris 01/22/2021 11:38 Pauly Harris in [place] 01/22/2021 11:38
== END ==
PROVIDERS: PCP Internal Medicine; Visit Provider Podiatrist
DX: M76.822 Posterior tibial tendinitis, left leg (principal)
CPT/HCPCS: 73720; A9576

== ENCOUNTER → 2021-01-31 08:53 | Outpatient (CLI) | payer OTHER, SELFPAY ==
--- NOTE | 2021-01-31 09:15 | XR_ITS ---
PROCEDURE: XR CHEST 2V CLINICAL HISTORY: HTN, COMPARISON: CR CXR CHEST(2 VIEWS-NOT PORTABLE) from 10/07/2016 FINDINGS: The cardiomediastinal silhouette and pulmonary vascularity are within normal limits considering a somewhat poor inspiration. The lungs are clear without infiltrates, suspicious nodules, or pleural effusions. No acute bony abnormalities. There are metallic brackets and pedicle screws upper lumbar spine only partially visualized at the lower aspect of the image. IMPRESSION: No acute findings. Dictated by: Dr. Elton Santiago MD 01/31/2021 09:58 Dr. Elton Santiago MD in [place] 01/31/2021 09:58
--- NOTE | 2021-01-31 10:01 | ECG_ITS ---
APPROVED REPORT Exam: Resting ECG HR:66 bpm ECG Measurements Heart Rate 66 AXES FL 136 P 55 QRSd 84 QRS 61 QT 376 T 16 QTc 394 Conclusion Normal sinus rhythm Nonspecific T wave abnormality Abnormal ECG Electronically signed by : Thony Alarcon, 02/01/2021 08:41:29
[2021-01-31 10:35] LABS: Basophils # 0.1 K/mm3 (0-0.2); Basophils % 0.7 % (0.1-2.0); Eosinophils # 0.6 K/mm3 (0.0-0.4); Eosinophils % 5.8 % (0.1-12.0); Hematocrit 37.6 % (37.0-47.0); Hemoglobin 12.4 g/dL (12.2-16.2); Mean Corpuscular HGB Conc 32.9 g/dL (31.8-35.4); Mean Corpuscular Hemoglobin 29.7 pg (27.0-31.2); Mean Corpuscular Volume 90.4 fl (81-99); Mean Platelet Volume 7.5 fl (7.4-10.4); Monocytes # 0.5 K/mm3 (0.1-1.0); Monocytes % 5.4 % (1.7-9.3); Neutrophils # 6.6 K/mm3 (1.8-7.8); Platelet Count 326 K/mm3 (142-424); Red Blood Count 4.16 M/mm3 (4.20-5.40); Red Cell Distribution Width 13.3 % (11.5-17.5); White Blood Count 9.8 K/mm3 (4.8-10.8)
[2021-01-31 10:57] LABS: Chloride 106 mmol/L (98-107); Sodium 138 mmol/L (136-145)
[2021-01-31 11:00] LABS: Alanine Aminotransferase 22 U/L (12-78); Albumin Level 4.4 g/dl (3.5-5.0); Albumin/Globulin Ratio 1.4 (1.1-1.8); Alkaline Phosphatase 96 U/L (38-126); Aspartate Amino Transferase 27 U/L (14-36); Bilirubin,Total 0.5 mg/dl (0.2-1.3); Blood Urea Nitrogen 28 mg/dl (7-17); Calcium 9.2 mg/dl (8.4-10.2); Carbon Dioxide 26 mmol/L (22.0-30.0); Estimated Glomerular Filt Rate 41 ml/min (>60); GFR (African American) 50 ML/MIN (>60); Globulin 3.2 g/dL (1.3-3.2); Glucose 102 mg/dl (74-100); Total Protein,Serum 7.6 g/dl (6.3-8.2)
[2021-01-31 11:18] LABS: 25-OH Vitamin D, Total 26.8 ng/mL (30-100)
== END ==
PROVIDERS: PCP Internal Medicine; Visit Provider Podiatrist
DX: Z01.818 Encounter for other preprocedural examination (principal); E55.9 Vitamin D deficiency, unspecified; S86.312A Strain of muscle(s) and tendon(s) of peroneal muscle group at lower leg level, left leg, initial encounter
CPT/HCPCS: 36415; 71046; 80053; 82306; 85025; 93005

== ENCOUNTER → 2021-02-10 08:50 | Outpatient (CLI) | payer OTHER, SELFPAY ==
[2021-02-10 09:53] LABS: Coronavirus 19 IgG Antibody Positive (Negative); Coronavirus 19 IgM Antibody Negative (Negative)
== END ==
PROVIDERS: Visit Provider Podiatrist
DX: Z01.812 Encounter for preprocedural laboratory examination (principal); Z20.822 Contact with and (suspected) exposure to COVID-19; S86.312A Strain of muscle(s) and tendon(s) of peroneal muscle group at lower leg level, left leg, initial encounter; S86.112A Strain of other muscle(s) and tendon(s) of posterior muscle group at lower leg level, left leg, initial encounter; M66.872 Spontaneous rupture of other tendons, left ankle and foot
CPT/HCPCS: 36415; 86328

== ENCOUNTER 2021-02-12 09:19 | Day surgery (SDC) | payer OTHER, SELFPAY ==
[2021-02-11 11:08] VITALS: BMI 26.6
[2021-02-12] VITALS (10 sets, daily range): BP systolic 109–148; BP diastolic 5–85; PULSE 69–87; RESP 16–18; TEMP 36.2–42.7; O2SAT 95–100
--- NOTE | 2021-02-12 12:47 | HMH.ANESCL ---
[facility] Anesthesia Checklist - Patient Identification Patient Identification: Arm Band - Structural Data Admitted From: Home Planned Operative Procedure/s: POsterior tibial tendon repair, peroneal tendon debridement and repair Consent for Planned Operative Procedure(s) Verified: Yes - NPO Status Verified Time NPO: 00:00 - Additional verifications Anesthesia Reactions: No Hx Blood Transfusions: No - Airway Assessment C-Spine Mobility Assessed: Yes TMJ Mobility Assessed: Yes Dentition: Good Dentition - Neurological Assessment Level of Consciousness: Awake, Alert Hx Seizures: No Numbness or tingling in extremities: No - Anesthesia Plan Anesthesia Risk discussed: Yes Anesthesia Plan: Verified ASA Class: II Anesthesia Type: General w/block [facility] History I have reviewed the patient's past medical history: Yes Medical History: Reports:: Hypertension Denies:: Cancer, Diabetes Mellitus Type 1, Diabetes Mellitus Type 2, Internal Pacemaker, MRSA, Seizures *Have you ever received a pneumonia vaccine?: No *Have you received a flu vaccine this season?: Yes Other Medical History: Reports: Arthritis, Hypothyroidism, Thyroid Disease Anesthesia experience/problems:: None Laterality Cases: Right: Carpal Tunnel Release Other Surgeries: Yes: Cholecystectomy, Colonoscopy, Other. No: Pacemaker Amputation: No Fractures: No - *Social History Last grade of school completed: 11th or 12th Smoking Status: Never smoker Alcohol Intake: never Substance Use Type: denies use *Occupational Status:: employed Housing: house Household Members: spouse *Travel in the last 8 weeks: None Family Hx:: Hypertension, Stroke (Father)
--- NOTE | 2021-02-12 14:56 | XR_ITS ---
PROCEDURE: XR ANKLE LT 2V CLINICAL INDICATION: Post op ankle COMPARISON: MR MR FOOT LT WO/W CON from 01/22/2021 CR XR FOOT LT MIN 3V from 02/12/2021 CR XR ANKLE LT 2V from 02/12/2021 FINDINGS: There is a posterior splint in place obscuring fine bony detail. [place] screws are present at the medial malleolar region and the medial aspect of the navicular. The joint spaces are well-preserved. No significant degenerative/arthritic changes. No erosive changes evident. Other findings:None. IMPRESSION: Postsurgical changes with good alignment Dictated by: Kendell Madera MD 02/12/2021 16:15 Kendell Madera MD in [place] 02/12/2021 16:15
--- NOTE | 2021-02-12 15:00 | XR_ITS ---
PROCEDURE: XR ANKLE LT 2V CLINICAL INDICATION: Post op ankle COMPARISON: MR MR FOOT LT WO/W CON from 01/22/2021 CR XR FOOT LT MIN 3V from 02/12/2021 CR XR ANKLE LT 2V from 02/12/2021 FINDINGS: There is a posterior splint in place obscuring fine bony detail. [place] screws are present at the medial malleolar region and the medial aspect of the navicular. The joint spaces are well-preserved. No significant degenerative/arthritic changes. No erosive changes evident. Other findings:None. IMPRESSION: Postsurgical changes with good alignment Dictated by: Kendell Madera MD 02/12/2021 16:15 Kendell Madera MD in [place] 02/12/2021 16:15
--- NOTE | 2021-02-12 15:24 | SUR.OPER ---
1524 family updated, bandages being applied
--- NOTE | 2021-02-12 15:40 | HMH.OPNOTE ---
Date of procedure: 02/12/21 Pre-op Diagnosis:: 1. Left posterior tibial tendon insertional tear 2. Left fracture of accessory navicular 3. Left peroneal tendon of left foot 4. Left deltoid ligament partial tear/sprain 5. Left gastrocnemius equinus 6. Left foot/ankle synovitis 7. Vitamin D deficiency 8. Overweight (BMI 25.0-29.9) Post-op Diagnosis:: Same Procedure performed:: 1. Left peroneus brevis tendon debridement and repair 2. Left posterior tibial tendon debridement and repair 3. Left Kidner (excision of accessory navicular with PTT advancement) CPT 17199 4. Left excision of navicular fracture fragment 5. Left ankle medial arthrotomy, open deltoid ligament repair 6. Left gastrocnemius recession 7. Left ankle/foot synovectomy 8. Application of graft 9. Left application of posterior splint Surgeon:: Radha Raman DPM EELER:: Other (Elana Ashton) Anesthesia: GETA, regional (Left popliteal block) Estimated blood loss (mL): 20 Clinical Note:: Patient is a 61-year-old female with continued left foot and ankle pain. Patient had x-rays and most recently an MRI of the left foot 01/22/2021. MRI shows posterior tibial and FHL tendinopathy, a tear of the peroneus brevis tendon, contusion of the navicular bone, deltoid ligament strain versus partial tear. Patient has been attending physical therapy at [facility]. She states there is minimal improvement when icing but stretching, ultrasound and PT has not helped. Conservative care thus far has included immobilization in the fracture boot, Medrol Dosepak, [id number] NSAIDs, naproxen, Biofreeze, Duexis. She has been alternating between ice and heat. I previously explained if symptoms worsen or do not improve with physical therapy, can try cast immobilization. Application of fiberglass cast in office today to aid in pain control. After a long discussion with the patient in regards to the conservative versus surgical treatment for the tendon tear/deformity, the patient has elected to proceed with surgery because they have failed conservative treatment and continue to have pain and worsening symptoms affecting daily activities. The patient has been instructed on the planned procedure, all risk versus benefits of the procedure discussed. These include but are not limited to: bleeding, infection, nerve and blood vessel damage, need for further surgery, delay in healing of soft tissue or bone, tendon re-rupture, failure of bones to heal, non-union, mal-union, failure of the implant, prolonged pain and recovery, CRPS/RSD, DVT and anesthetic complications. No guarantees were given. All questions fully answered. The patient verbalized understanding and agreed to proceed with surgery. Written consent was obtained. Necessary labs and pre-op testing ordered: CBC, CMP, EKG, CXR, vit D, covid. Medical clearance per Dr. Gerard. Patient given crutches and Rx for walker. Recommend RKS. She was given Rx for [place] 7.5mg, Zofran 4mg # 30, vitamin D, takes Duexis 800/26.6. The patient is being prescribed a controlled substance. The patient has been counseled on the risks and benefits of the medication. I have reviewed with the patient the controlled substance agreement and the patient understands the risks of taking a controlled substance and the expectations set forth in the controlled substance agreement. The [employer] system has been queried and the report has been reviewed. Operative findings:: Gastroc equinus noted. There was an insertional tear of the posterior tibial tendon at the navicular. The accessory navicular had a fracture and a piece of it was partially excised/avulsed from the main body of the navicular. There was a partial tear of the deltoid ligament. The peroneus brevis tendon has synovitis and a longitudinal tear about 3 cm long. No peroneus longus tendon tear. Negative anterior drawer and talar tilt under intraoperative fluoroscopy. Operative note:: On this date and time patient was deemed an appropr
--- NOTE | 2021-02-13 07:48 | HMH.ANESII ---
[facility] Anesthesia Record Part II Discharge Time: 16:02 Destination: Surgical Day Care (OP Surgery) PACU nurse assessment reviewed?: Yes Patient Condition:: Good Anesthesia Complications:: None Swallowing reflex intact?: Yes Cyanosis?: No Blood Pressure: 125/67 Pulse Rate: 80 Temperature: 98.8 F Mental Status: Alert & Oriented Pain level:: 0 Nausea and/or vomitting:: None Intake, IV Amount: 900
[2021-02-13 07:49] VITALS: BP 125/67; PULSE 80; TEMP 37.1
--- NOTE | 2021-02-13 12:16 | HMH.ANESI ---
[facility] Anesthesia Record Part I Intake, IV Amount: 900 Estimated blood loss (mL): 20 Urine output (mL): 0 Blood Pressure: 121/65 SaO2: 93 Pulse Rate: 90 Respiratory Rate: 12 Temperature: 100.9 F Patient is:: Awake, Drowsy
[2021-02-13 12:17] VITALS: BP 121/65; PULSE 90; RESP 12; TEMP 38.3; O2SAT 93
== END 2021-02-12 16:50 | disposition home or self-care (01) ==
LOC: OR 09:21
PROVIDERS: PCP Internal Medicine; Visit Provider Podiatrist
PROC: (CPT 27658; principal; 2021-02-12 10:45)
DX: M66.872 Spontaneous rupture of other tendons, left ankle and foot (principal); M62.462 Contracture of muscle, left lower leg; S92.255A Nondisplaced fracture of navicular [scaphoid] of left foot, initial encounter for closed fracture; S86.112A Strain of other muscle(s) and tendon(s) of posterior muscle group at lower leg level, left leg, initial encounter; M76.822 Posterior tibial tendinitis, left leg; S86.312A Strain of muscle(s) and tendon(s) of peroneal muscle group at lower leg level, left leg, initial encounter; S93.422A Sprain of deltoid ligament of left ankle, initial encounter; M79.672 Pain in left foot; M67.874 Other specified disorders of tendon, left ankle and foot; S93.492A Sprain of other ligament of left ankle, initial encounter; Q74.2 Other congenital malformations of lower limb(s), including pelvic girdle
CPT/HCPCS: 27658; 28200; 15275; 27695; 28238; 27687; 73600; 73630; 76000; 96374; C1713; C1762; J2405; Q4211

== ENCOUNTER → 2021-05-02 09:27 | Outpatient (CLI) | payer OTHER, SELFPAY ==
--- NOTE | 2021-05-02 09:31 | XR_ITS ---
PROCEDURE: XR FOOT WT BEARING LT 3V CLINICAL INDICATION: post-op Follow-up surgery COMPARISON: DX XR FOOT LT MIN 3V from 10/21/2020 CR XR FOOT LT MIN 3V from 02/12/2021 FINDINGS: Cast has been removed. There is diffuse osteopenia. [place] screws remain at the navicular and medial malleolar region. There is good alignment. Prominent calcaneal spur is noted The joint spaces are well-preserved. No significant degenerative/arthritic changes. No erosive changes evident. Other findings:None. IMPRESSION: Generalized osteopenia with postsurgical changes Dictated by: Kendell Madera MD 05/02/2021 12:44 Kendell Madera MD in [place] 05/02/2021 12:44
--- NOTE | 2021-05-02 09:31 | XR_ITS ---
PROCEDURE: XR ANKLE WT BEARING LT MIN 3V CLINICAL INDICATION: post-op Follow-up surgery COMPARISON: CR XR ANKLE LT 2V from 02/12/2021 CR XR ANKLE LT 2V from 02/12/2021 FINDINGS: Splint has been removed. [place] screw is present in the medial malleolus and navicular. There is good alignment. Prominent calcaneal spurs present. There is generalized osteopenia. IMPRESSION: Postsurgical change good alignment and generalized osteopenia Dictated by: Kendell Madera MD 05/02/2021 12:53 Kendell Madera MD in [facility] 05/02/2021 12:53
== END ==
PROVIDERS: PCP Internal Medicine; Visit Provider Podiatrist
DX: Z98.890 Other specified postprocedural states (principal)
CPT/HCPCS: 73610; 73630

== ENCOUNTER 2021-05-27 09:00 | Outpatient (RCR) | payer OTHER, SELFPAY ==
--- NOTE | 2021-04-01 11:08 | HMH.PTOPEV ---
PT Outpatient Evaluation Rehab PT Outpatient Evaluation Start: 04/01/21 09:05 Freq: Status: Active Protocol: Document 04/01/21 10:59 HARSHIL (Rec: 04/01/21 11:08 HARSHIL [id number]) Electronically Signed By Spencer Soliman, PT 04/01/21 10:59 Outpatient Therapy Subjective History Subjective History Pt is 61 yowf who presents ~ 1 .5 mos S/P L peroneal tendon and post tib tendon repairs. She reports pain now is actually worse in her L heel, especially with WBing. She reports cortisone injection in the heel helped quite a bit, but pain remains. No other c/o at this time. Chief Complaint Pain,Stiff Symptom Type Sharp Symptoms Relieved By Nothing Symptoms Aggravated By Walking Prior Functional Limitations None Current Functional Limitations Standing,Walking Symptom Description Constant but Variable Level of pain today (0-10) 5 Pain scale - at its worst (0-10) 9 Ankle/Foot Eval Gait Observation General Gait Pattern Observation Antalgic Gait,Decrease Weight Bear (L),Decrease Stride Lngth (R),Decrease Stride Lngth (L) Assistive Device Ambulation Assistive Device Rolling Walker Palpation Tenderness left Ankle/Foot Palpation Findings Tenderness Ankle/Foot Palpation Overall Comment med calc tubercle ROM Ankle/Foot Dorsiflexion w/Knee Extended 0-6 Active Range Motion (degrees) Ankle/Foot Plantar Flexion Active Range 0-32 of Motion (degrees) Ankle/Foot Eversion Active Range of 0-10 Motion (degrees) Ankle/Foot Inversion Active Range of 0-28 Motion (degrees) MMT Ankle Dorsiflexion Strength Grade 4 Good Ankle Plantarflexion Strength Grade 4 Good Foot Eversion Strength Grade 4 Good Foot Inversion Strength Grade 4 Good Outpatient Therapy Assessment Impairments Problems/Impairmments Palpation Tenderness,Impaired Range of Motion,Impaired Strength,Impaired Endurance, Impaired Gait Pattern,Impaired Walking,Impaired Standing, Impaired Recreational Activities,Increased Edema, Lymphedema Present,Subjective C/O Pain,Impaired Self Care/ Self Management Prognosis Rehab Potential Good Clinical Impression Consistent with Diagnosis Yes Short Term Goals
--- NOTE | 2021-04-28 09:03 | HMH.RHREAS ---
Rehab Reassessment Rehab OP Re-assessment Start: 04/28/21 08:58 Freq: Status: Active Protocol: Document 04/28/21 08:58 GAUDENCIONIDHI (Rec: 04/28/21 09:03 HARSHIL [id number]) Electronically Signed By Spencer Soliman, PT 04/28/21 08:58 Rehab Re-assessment Subjective Subjective Pt reports increased lateral L heel pain over the weekend. Objective Objective Notes L Ankle AROM (in deg): DF= 0-8 , PF= 0-40, INV= 0-31, EVER= 0 -17 MMT L Ankle: Grossly 4+/5 throughout. Palpation tenderness: 1/4 L lateral heel inferior to incision. Assessment Progress Assessment Progressing as Expected Assessment Notes Continues to improve AROM and strength, Gait improved with straight cane. Pain increase is unexpected at this point, however pt has had chronic heel pain for some time prior to surgery. Patient goals met ST,2,3,4,5,6 Goals Not Met LT,2,3,4,5,6,7,8 Revised Goals none Plan Plan Continue per initial POC. Frequency of Therapy 3x /wk Duration of therapy 8 wks Time and Billing Re-Eval Time 15 Re-Eval Billing Units 1 PHYSICIAN CERTIFICATION: I certify the specified therapy services for Sarah Arrington are required, authorized, and reviewed every 30 days.
== END 2021-05-27 10:05 | disposition home or self-care (01) ==
LOC: PT 09:00
PROVIDERS: PCP Internal Medicine; Visit Provider Podiatrist
DX: M72.2 Plantar fascial fibromatosis (principal); Z98.890 Other specified postprocedural states
CPT/HCPCS: 97010; 97014; 97033; 97110; 97140; 97163; 97164; 97530; 97760; G0283

== ENCOUNTER 2021-11-28 18:48 | Emergency (ER) | payer OTHER, SELFPAY ==
[2021-11-28 18:58] VITALS: BP 100/69; PULSE 101; RESP 18; O2SAT 100; BMI 25.7
[2021-11-28 19:00] VITALS: BP 100/69; PULSE 101; RESP 18; TEMP 36.8; O2SAT 100; BMI 25.6
--- NOTE | 2021-11-28 19:19 | HMH.EDUTC ---
[facility] Clinical Impression: Abdominal pain Qualifiers: Abdominal location: generalized Qualified Code(s): R10.84 - Generalized abdominal pain Leukocytosis Qualifiers: Leukocytosis type: unspecified Qualified Code(s): D72.829 - Elevated white blood cell count, unspecified Disposition: Still a Patient Condition on Discharge: Fair Referrals: Kemar Gerard [Primary Care Provider] - Time of Disposition: 20:42 Medical Decision Making - Medical Records Medical records reviewed: No: I reviewed the patient's medical records. - Ty Inquiry Pt receiving controlled substance: No Vital Signs: 11/28/21 18:58 11/28/21 19:00 11/28/21 20:13 Temperature 98.3 F 98.3 F Temperature Source Oral Pulse Rate 101 H Pulse Rate [Left Radial] 101 H 101 H Respiratory Rate 18 18 18 Blood Pressure 100/69 L Blood Pressure [Right Arm] 100/69 L 100/69 L Blood Pressure Mean [Right Arm] 79 79 Blood Pressure Source [Right Arm] Automatic Cuff Automatic Cuff Blood Pressure Position [Right Arm] Sitting Sitting 02 Sat by Pulse Oximetry 100 100 Oxygen Delivery Method Room Air Room Air - Lab Data Lab Results 11/28/21 19:30: WBC 12.2 H, RBC 4.99, Hgb 14.8, Hct 46.1, MCV 92.3, MCH 29.6, MCHC 32.1, RDW 13.2, Plt Count 455 H, MPV 7.6, Neut % (Auto) 90.8 H, Lymph % (Auto) 2.6 L, [place] % (Auto) 4.5, Eos % (Auto) 0.9, Baso % (Auto) 1.2, Neut # (Auto) 11.1 H, Lymph # (Auto) 0.3 L, [place] # (Auto) 0.6, Eos # (Auto) 0.1, Baso # (Auto) 0.2, Total Counted 100, Neutrophils % (Manual) 92 H, Lymphocytes % (Manual) 3 L, Monocytes % (Manual) 5, Platelet Estimate Normal, RBC Morphology Normal 11/28/21 19:30: Sodium 134 L, Potassium 3.8, Chloride 99, Carbon Dioxide 23, Anion Gap 15.8 H, BUN 42 H, Creatinine 1.60 H, Estimated Creat Clear 39, Estimated GFR 33 L, Est GFR ( Amer) 39 L, Glucose 150 H, Calcium 9.5, Total Bilirubin 0.6, AST 38 H, ALT 36, Alkaline Phosphatase 94, Total Protein 9.4 H, Albumin 5.3 H, Globulin 4.1 H, Albumin/Globulin Ratio 1.3, Amylase 123 H, Lipase 71 11/28/21 19:30: Group A Strep Rapid Negative Result diagrams: 11/28/21 19:30 11/28/21 19:30 Orders (Tests/Meds): ED MEDICATIONS Generic Name Dose Route Start Last Admin Trade Name Freq PRN Reason Stop Dose Admin Sodium Chloride 1,000 mls @ 999 mls/hr 11/28/21 19:45 11/28/21 19:44 Sod Chlor 0.9% 1000ml Bag IV 11/28/21 20:45 999 mls/hr .Q1H1M RIGO Administration Discontinued Medications Generic Name Dose Route Start Last Admin Trade Name Freq PRN Reason Stop Dose Admin Ondansetron HCl 4 mg 11/28/21 19:32 11/28/21 19:44 Ondansetron 4mg/2ml Vial IV 11/28/21 19:33 4 mg ONCE ONE Administration ORDERS Category Date Time Status Covid-19 Nasal PCR ([facility]) Routine Lab 11/28/21 19:30 Received Strep Screen Confirmation Stat Micro 11/28/21 19:30 Received Medical Decision Narrative: She was transferred to the er due to her elevated wbc and her abdominal pain. [facility] [place] - General Stated complaint: muscle cramps, vomiting,diarrhea Time Seen by Provider: 11/28/21 19:19 Mode of Arrival: Ambulatory Source of Information: Patient Limitations: No Limitations Description of Symptoms (Recalled from Triage Doc. by RN): PATIENT C/O VOMITING AND DIARRHEA SINCE THIS MORNING HEENT Symptoms (Recalled from RN notes): No Resp Symptoms (Recalled from RN notes): No Skin Symptoms (Recalled from RN notes): No MS Symptoms (Recalled from RN notes): No Functional Status (Recalled from RN notes): WNL - History of Present Illness Provider Complaint: She states that she started havind diarrhea last night. She started vomiting this morning. She has vomited X2 today, but she has had multiple diarrhea stools. She denies any abdominal pain, shortness of breath, chest pain, and any other complaints. - Related Data Home Medications Medication Instructions Recorded Confirmed omeprazole 40 mg capsule,delayed 40 mg PO DAILY 06/30/19 08/04/21 r
[2021-11-28 19:39] LABS: Basophils # 0.2 K/mm3 (0-0.2); Basophils % 1.2 % (0.1-2.0); Eosinophils # 0.1 K/mm3 (0.0-0.4); Eosinophils % 0.9 % (0.1-12.0); Hematocrit 46.1 % (37.0-47.0); Hemoglobin 14.8 g/dL (12.2-16.2); Lymphocytes # 0.3 K/mm3 (0.7-4.5); Lymphocytes % 2.6 % (10-50); Mean Corpuscular HGB Conc 32.1 g/dL (31.8-35.4); Mean Corpuscular Hemoglobin 29.6 pg (27.0-31.2); Mean Corpuscular Volume 92.3 fl (81-99); Mean Platelet Volume 7.6 fl (7.4-10.4); Monocytes # 0.6 K/mm3 (0.1-1.0); Monocytes % 4.5 % (1.7-9.3); Neutrophils # 11.1 K/mm3 (1.8-7.8); Neutrophils % 90.8 % (37.0-80.0); Platelet Count 455 K/mm3 (142-424); Red Blood Count 4.99 M/mm3 (4.20-5.40); Red Cell Distribution Width 13.2 % (11.5-17.5); White Blood Count 12.2 K/mm3 (4.8-10.8)
[2021-11-28 19:43] LABS: MANUAL DIFFERENTIAL MANUAL DIFFERENTIAL (MANUAL DIFF); Strep Scrn Group A (Rapid) Negative (Negative)
[2021-11-28 19:50] LABS: Lymphocytes % 3 % (10-50); Monocytes % 5 % (2-9); Neutrophils % 92 % (42-76); Platelet Estimate Normal; RBC Morphology Normal; Total Cells Counted 100
[2021-11-28 20:11] LABS: Chloride 99 mmol/L (98-107); Sodium 134 mmol/L (136-145)
[2021-11-28 20:12] LABS: Potassium 3.8 mmoL/L (3.5-5.1)
[2021-11-28 20:13] VITALS: BP 100/69; PULSE 101; RESP 18; TEMP 36.8; O2SAT 100
[2021-11-28 20:14] LABS: Alanine Aminotransferase 36 U/L (12-78); Alkaline Phosphatase 94 U/L (38-126); Amylase 123 U/L (30-110); Anion Gap 15.8 mEq/L (5-15); Aspartate Amino Transferase 38 U/L (14-36); Bilirubin,Total 0.6 mg/dl (0.2-1.3); Blood Urea Nitrogen 42 mg/dl (7-17); Carbon Dioxide 23 mmol/L (22.0-30.0); Creatinine Clearance Estimated 39 mL/min (50-200); Estimated Glomerular Filt Rate 33 ml/min (>60); GFR (African American) 39 ML/MIN (>60)
[2021-11-28 20:15] LABS: Albumin Level 5.3 g/dl (3.5-5.0); Albumin/Globulin Ratio 1.3 (1.1-1.8); Calcium 9.5 mg/dl (8.4-10.2); Globulin 4.1 g/dL (1.3-3.2); Glucose 150 mg/dl (74-100); Lipase 71 U/L (23-300); Total Protein,Serum 9.4 g/dl (6.3-8.2)
--- NOTE | 2021-11-28 20:36 | CT_ITS ---
PROCEDURE INFORMATION: Exam: CT Abdomen And Pelvis With Contrast Exam date and time: 11/28/2021 8:36 PM Age: 61 years old Clinical indication: Nausea and vomiting and other: Diarrhea; Prior surgery; Surgery date: 6+ months; Surgery type: Gb lumbar spine surgery; Additional info: N/v/d TECHNIQUE: Imaging protocol: Computed tomography of the abdomen and pelvis with contrast. Radiation optimization: All CT scans at this facility use at least one of these dose optimization techniques: automated exposure control; mA and/or kV adjustment per patient size (includes targeted exams where dose is matched to clinical indication); or iterative reconstruction. Contrast material: ISOVUE; Contrast volume: 75 ml; Contrast route: IV; COMPARISON: CR XR HIP LT 2-3V W/PELVIS 06/30/2019 9:18 AM FINDINGS: Liver: Normal. No mass. Gallbladder and bile ducts: Cholecystectomy. Pancreas: Normal. No ductal dilation. Spleen: Normal. No splenomegaly. Adrenal glands: Normal. No mass. Kidneys and ureters: Normal. No hydronephrosis. Stomach and bowel: Fluid in the stomach which shows mild wall thickening enhancement. Fluid throughout the colon with air-fluid levels. Nondistended fluid-filled small bowel loops. These findings likely reflect low-grade gastroenteritis and diarrhea. Appendix: No evidence of appendicitis. Intraperitoneal space: Unremarkable. No free air. No significant fluid collection. Vasculature: Unremarkable. No abdominal aortic aneurysm. Lymph nodes: Unremarkable. No enlarged lymph nodes. Urinary bladder: Unremarkable as visualized. Reproductive: Unremarkable as visualized. Bones/joints: Posterior lumbar fusion L2 through L5. Soft tissues: Unremarkable. IMPRESSION: Low-grade gastroenteritis and diarrhea.
[2021-11-28 20:42] LABS: Microscopic, Urine URINE MICROSCOPIC (MICROSCOPIC)
[2021-11-28 20:44] LABS: Appearance,Urine CLEAR (Clear); Bilirubin,Urine Negative (Negative); Blood, Urine 1+ (Negative); Color,Urine YELLOW (Yellow); Glucose,Urine (UA) Negative (Negative); Ketones,Urine Negative (Negative); Leukocyte Esterase,Urine 1+ (Negative); Nitrate,Urine Negative (Negative); PH,Urine 5.5 (5.0-8.5); Protein,Urine TRACE (Negative); Specific Gravity, Urine 1.025 (1.005-1.030); Urobilinogen,Urine 0.2 EU/dl (0.2)
--- NOTE | 2021-11-28 20:53 | PC.NURSE ---
pt to ct
[2021-11-28 20:54] LABS: Bacteria,Urine 2+ /lpf; WBC,Urine 20-50 #/hpf (0-3)
[2021-11-28 21:00] LABS: Coronavirus 19, PCR Not Detected (NotDetected); Influenza A, PCR Not Detected (NotDetected); Influenza B, PCR Not Detected (NotDetected)
[2021-11-28 21:03] VITALS: BP 134/74; PULSE 75; RESP 18; TEMP 36.8; O2SAT 98; BMI 25.7
[2021-11-28 21:13] LABS: C-Reactive Protein 5.4 mg/L (0-4)
[2021-11-28 21:22] LABS: Erythrocyte Sedimentation Rate 11 mm/hr (0-30)
[2021-11-28 21:27] LABS: Procalcitonin 0.185 ng/mL (0.0-2.0)
[2021-11-28 22:01] VITALS: BP 106/63; PULSE 78; O2SAT 95
[2021-11-28 22:18] VITALS: BP 106/63; PULSE 83; RESP 17; TEMP 36.8; O2SAT 97
--- NOTE | 2021-11-28 22:54 | HMH.EDNVD ---
ED Disposition Clinical Impression: Gastroenteritis, TAMMIE (acute kidney injury), Abnormal urinalysis Abdominal pain Qualifiers: Abdominal location: generalized Qualified Code(s): R10.84 - Generalized abdominal pain Leukocytosis Qualifiers: Leukocytosis type: unspecified Qualified Code(s): D72.829 - Elevated white blood cell count, unspecified Disposition: Home, Self-Care Condition on Discharge: Good Instructions: DI for Diarrhea and Traveler's Diarrhea -- Adult Additional Instructions: fluids and call pcp for follow up Referrals: Kemar Gerard [Primary Care Provider] - - Critical Care Critical Care Time: No Attestation: On 11/28/21, the high probability of a clinically significant, sudden or life threatening deterioration of the following system(s) required my full and direct attention, intervention and personal management. The time I documented below is in addition to time spent performing reported procedures but includes the following listed in this critical care notation. Medical Decision Making - Medical Records Medical records reviewed: Yes: I reviewed the patient's medical records. - Ty Inquiry Pt receiving controlled substance: No Vital Signs: 11/28/21 18:58 11/28/21 19:00 11/28/21 20:13 Temperature 98.3 F 98.3 F Temperature Source Oral Pulse Rate 101 H Pulse Rate [Left Radial] 101 H 101 H Respiratory Rate 18 18 18 Blood Pressure 100/69 L Blood Pressure [Right Arm] 100/69 L 100/69 L Blood Pressure Mean [Right Arm] 79 79 Blood Pressure Source [Right Arm] Automatic Cuff Automatic Cuff Blood Pressure Position [Right Arm] Sitting Sitting 02 Sat by Pulse Oximetry 100 100 Oxygen Delivery Method Room Air Room Air 11/28/21 21:03 11/28/21 22:01 11/28/21 22:17 Temperature 98.2 F Temperature Source Oral Pulse Rate 78 Pulse Rate [Left Radial] 75 Respiratory Rate 18 Blood Pressure 106/63 L Blood Pressure [Right Arm] 134/74 Blood Pressure Mean [Right Arm] 94 Blood Pressure Source [Right Arm] Blood Pressure Position [Right Arm] 02 Sat by Pulse Oximetry 98 95 Oxygen Delivery Method Room Air Room Air Room Air 11/28/21 22:18 Temperature 98.3 F Temperature Source Oral Pulse Rate 83 Pulse Rate [Left Radial] Respiratory Rate 17 Blood Pressure 106/63 L Blood Pressure [Right Arm] Blood Pressure Mean [Right Arm] Blood Pressure Source [Right Arm] Blood Pressure Position [Right Arm] 02 Sat by Pulse Oximetry Oxygen Delivery Method Room Air - Lab Data Lab results reviewed: Yes: I reviewed the patient's lab results. Lab Results 11/28/21 19:30: WBC 12.2 H, RBC 4.99, Hgb 14.8, Hct 46.1, MCV 92.3, MCH 29.6, MCHC 32.1, RDW 13.2, Plt Count 455 H, MPV 7.6, Neut % (Auto) 90.8 H, Lymph % (Auto) 2.6 L, [place] % (Auto) 4.5, Eos % (Auto) 0.9, Baso % (Auto) 1.2, Neut # (Auto) 11.1 H, Lymph # (Auto) 0.3 L, [place] # (Auto) 0.6, Eos # (Auto) 0.1, Baso # (Auto) 0.2, Total Counted 100, Neutrophils % (Manual) 92 H, Lymphocytes % (Manual) 3 L, Monocytes % (Manual) 5, Platelet Estimate Normal, RBC Morphology Normal 11/28/21 19:30: Sodium 134 L, Potassium 3.8, Chloride 99, Carbon Dioxide 23, Anion Gap 15.8 H, BUN 42 H, Creatinine 1.60 H, Estimated Creat Clear 39, Estimated GFR 33 L, Est GFR ( Amer) 39 L, Glucose 150 H, Calcium 9.5, Total Bilirubin 0.6, AST 38 H, ALT 36, Alkaline Phosphatase 94, Total Protein 9.4 H, Albumin 5.3 H, Globulin 4.1 H, Albumin/Globulin Ratio 1.3, Amylase 123 H, Lipase 71 11/28/21 19:30: Group A Strep Rapid Negative 11/28/21 19:30: ESR 11 11/28/21 19:30: C-Reactive Protein 5.4 H, Procalcitonin 0.185 11/28/21 19:30: SARS-CoV-2 (PCR) Not detected, Influenza A Untype (PCR) Not detected, Influenza Type B (PCR) Not detected 11/28/21 20:38: Urine Color Yellow, Urine Appearance Clear, Urine pH 5.5, Ur Specific [place] 1.025, Urine Protein Trace, Urine Glucose (UA) Negative, Urine Ketones Negative, Urine Blood 1+, Urine Nitrate Negative, Urine Bilirubin Negativ
== END 2021-11-28 23:05 | disposition home or self-care (01) ==
LOC: UTC 18:57 → ER 20:32
PROVIDERS: Nurse Practitioner Family; Emergency Provider Emergency Medicine; PCP Internal Medicine
DX: N17.9 Acute kidney failure, unspecified (principal); K52.9 Noninfective gastroenteritis and colitis, unspecified; I10 Essential (primary) hypertension; Z20.822 Contact with and (suspected) exposure to COVID-19
CPT/HCPCS: 74177; 80053; 81001; 82150; 83690; 84145; 85007; 85025; 85651; 86140; 87086; 87088; 87186; 87430; 96365; 96375; 99291; C9803; J2405; Q9967; U0003; U0005

== ENCOUNTER → 2021-11-29 16:13 | Outpatient (CLI) | payer OTHER, SELFPAY | PROVIDERS: PCP Internal Medicine; Visit Provider Emergency Medicine | DX: R19.7 Diarrhea, unspecified (principal) ==

== ENCOUNTER → 2022-03-19 13:48 | Outpatient (POV) | payer OTHER, SELFPAY ==
[2022-03-19 14:19] VITALS: BP 117/70; PULSE 56; RESP 18; TEMP 36.8; O2SAT 96; BMI 26.6
--- NOTE | 2022-03-19 15:26 | HMH.PMCON ---
Assessment and Plan (1) Cervical radiculopathy Status: Acute Category: Medical Code(s): M54.12 - Radiculopathy, cervical region (2) Cervical spondylosis Status: Acute Category: Medical Code(s): M47.812 - Spondylosis without myelopathy or radiculopathy, cervical region (3) Degenerative disc disease, cervical Status: Chronic Category: Medical Code(s): M50.30 - Other cervical disc degeneration, unspecified cervical region - Assessment and plan all Dx Assessment and Plan for all problems:: Patient presents today to [facility] care with us she presents with worsening neck pain that radiates to bilateral shoulders. In the past we have done a medial branch block on bilateral C4-C5 and C5-C6 to provide the patient 90 to 100% relief. Today, we will schedule the patient for diagnostic facet/medial branch block injections at bilateral C4-C5 and C5-C6. Risk and benefits of this procedure been discussed with the patient. Patient would like to proceed with this procedure. Patient is not on any blood thinners. Patient has been instructed to contact the clinic with any concerns before the next appointment. Dr. Little has reviewed this note and agrees with this plan of care. This note was dictated using voice recognition software and make contain errors or omissions. HPI - Data of Consult Patient: new to practice Consult date: 03/19/22 Requesting Physician: DARYN Vivas - Consult Narrative Reason for consult: Neck pain History of present illness: Ms. Arrington is a 62 year old female presents today to [facility]. Patient is referred by Dr. Gerard. Thank you for the referral. Patient presents today with chronic neck pain that radiates to bilateral shoulders. Denies any recent falls or traumas. We have treated this patient in the past. We have done cervical epidural steroid injection that provided minimal relief. When we did a diagnostic medial branch block at bilateral C4-C5 and C5-C6, patient had significant relief of 90 to 100%. We have not seen this patient since 2019. She states that she had to have surgery on her left foot by Dr. Alonzo. She has healed from this injury. She wants to know if she can get a repeat injection on her neck. Rates her pain today as 8 out of 10, left is worse than the right. 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 Ty [id number] with an active morphine equivalent of 0. CC: DARYN Vivas [facility] History I have reviewed the patient's past medical history: Yes Medical History: Reports:: Hypertension Denies:: Cancer, Diabetes Mellitus Type 1, Diabetes Mellitus Type 2, Internal Pacemaker, MRSA, Seizures *Have you ever received a pneumonia vaccine?: No *Have you received a flu vaccine this season?: No Other Medical History: Reports: Arthritis, Hypothyroidism, Thyroid Disease Laterality Cases: Right: Carpal Tunnel Release Other Surgeries: Yes: Cholecystectomy, Colonoscopy, Other. No: Pacemaker Amputation: No Fractures: No - *Social History Smoking Status: Never smoker Alcohol Intake: never Substance Use Type: denies use *Occupational Status:: employed Housing: house Household Members: spouse *Travel in the last 8 weeks: None Family Hx:: Hypertension, Stroke Review of Systems - Review of Systems Review of Systems: General: No recent weight changes, no fever, no sleep disturbances Respiratory: No cough, no shortness of air, no recurring pulmonary infections Cardiovascular/peripheral vascular: No chest pain, no palpitations, no edema, no shortness of breath Gastrointestinal: No new onset incontinence, normal bowel movements reported Genitourinary: No new onset incontinence Musculoskeletal: Neck pain Psychiatric: [Normal mood/affect] Neurological: [Denies weakness in extremities], [denies balance issues] Meds Home Medications Medication Instructions Recorded Confirmed Type omeprazole 40 mg capsule,delayed 40 mg PO DAILY 06/30/1903/19
== END ==
PROVIDERS: Visit Provider Student in an Organized Health Care Education/Training Program
DX: M50.10 Cervical disc disorder with radiculopathy, unspecified cervical region (principal); M47.896 Other spondylosis, lumbar region
CPT/HCPCS: 99202; G0463

== ENCOUNTER 2022-04-03 08:33 | Day surgery (SDC) | payer OTHER, SELFPAY ==
[2022-04-03 08:44] VITALS: BP 131/84; PULSE 70; RESP 18; TEMP 36.4; O2SAT 99; BMI 26.6
[2022-04-03 08:50] VITALS: BP 159/73; PULSE 73; RESP 18; O2SAT 98
[2022-04-03 08:51] VITALS: BP 143/74; PULSE 80; RESP 18; O2SAT 98
--- NOTE | 2022-04-03 08:58 | P.PCN_ITS ---
- Procedure Date: 04/03/22 Time: 08:58 Anesthesiologist:: Lang Watson CRNA Complications:: None Pre-procedure Diagnosis:: Disc disease cervical spines. Cervical multilevel facet arthropathy bilaterally. Post-procedure Diagnosis:: Same Indications for Procedure:: Very pleasant patient 62-year-old female that comes to our clinic today for bilateral medial branch block C4-5, C5-6. Patient has had these injections several years ago with significant improvement terms of her cervical neck pain. She rates her cervical neck pain 7/10. Difficulty with mobility. Describes a heaviness feeling her head on her shoulders. Procedure Details:: Informed consent was obtained and the risk and benefits of the procedure was explained to the patient. Patient was taken to the procedure room where noninvasive monitors were placed, including noninvasive blood pressure cuff as well as pulse oximeter. The area over the lumbar spine was cleansed using chlorhexidine as a cleansing solution. I anesthetized the skin and subcutaneous tissues with 1% Lidocaine. I placed 22-gauge spinal needles into the facet joint/ medial branches of cervical C4-5, C5-6 bilaterally. Needle placement was confirmed with fluoroscopy. After confirmation of needle placement, each site was injected with 1 mL of 1% lidocaine and 0.25 % Marcaine and 10 mg of Depo- Medrol. A total of 80 mg of depo medrol was used for bilateral medial branch blocks of cervical C4-5, C5-6 bilaterally. Patient tolerated the procedure without difficulty. There were no complications. Plan and Disposition:: Patient was discharged without incident. Reports significant improvement in terms of her neck function prior to discharge.
[2022-04-03 09:10] VITALS: BP 127/73; PULSE 61; RESP 20; O2SAT 99
== END 2022-04-03 09:10 | disposition home or self-care (01) ==
LOC: SC.PAINP 08:34
PROVIDERS: PCP Internal Medicine; Visit Provider Nurse Anesthetist, Certified Registered
DX: M50.922 Unspecified cervical disc disorder at C5-C6 level (principal); M54.02 Panniculitis affecting regions of neck and back, cervical region
CPT/HCPCS: 64490; 64491; J1040

== ENCOUNTER → 2022-09-24 08:56 | Outpatient (POV) | payer OTHER, SELFPAY ==
[2022-09-24 09:12] VITALS: BP 143/71; PULSE 72; RESP 18; O2SAT 97; BMI 26.6
--- NOTE | 2022-09-24 09:44 | EXP.PAIN.SOA ---
[facility] Pain Management SOAP Note Subjective:: Patient is a pleasant 62-year-old female who presents today for follow-up of cervical medial branch block bilaterally at C4-C5 and C5-C6 on 04/03/2022. We are currently treating the patient for degenerative disc disease of cervical spine with cervical radiculopathy symptoms, cervical spondylosis, cervical facet arthropathy. Today she states that her last injection provided approximately 50% improvement however it only lasted a couple of months. Patient has had previous blocks that provided 70% relief for approximately 6 months. Today the patient rates her pain a 8 out of 10. Patient states the pain is all in her upper back/neck and denies any new injury or trauma. Patient denies any change location or type of pain she experiences. Patient does use [id number] Tylenol at or ibuprofen as needed to help with her symptoms. She is not on any scheduled medications. Her Ty is [id number]. It is been reviewed and appropriate. Review of Systems: General: No recent weight changes, no fever, no sleep disturbances Respiratory: No cough, no shortness of air, no recurring pulmonary infections Cardiovascular/peripheral vascular: No chest pain, no palpitations, no edema, no shortness of breath Gastrointestinal: No new onset incontinence, normal bowel movements reported Genitourinary: No new onset incontinence Musculoskeletal: Upper back/neck pain Psychiatric: [Normal mood/affect] Neurological: [Denies weakness in extremities], [denies balance issues] Objective:: Physical Exam: General: Alert and oriented x3, no acute distress, pleasant and cooperative Lungs: Respirations even and unlabored, symmetrical chest expansion Eyes: PERRL Musculoskeletal: Flexion and extension of cervical [spine] somewhat guarded secondary to pain, [antalgic gait noted] Neurological: Speech clear, no gross sensory deficit Assessment:: Degenerative disc disease of cervical spine with cervical radiculopathy symptoms, cervical spondylosis, cervical facet arthropathy Plan:: Patient is experiencing significant pain in her upper back/neck that radiates into her bilateral upper extremities. Patient did have limited range of motion of her cervical spine during today's visit. Patient has had multiple medial branch blocks of her cervical spine that provided at least 50% improvement with some providing over 70% relief lasting several months. I have discussed with the patient that she may benefit from a cervical RFA at this location. Risk and benefits were discussed with the patient. She would like to proceed forward with this plan of care. I will order the patient a cervical RFA at C4-C5 and C5-C6 on the left side. Patient has been instructed to contact the clinic with any concerns before the next appointment. Dr. Little has reviewed this note and agrees with this plan of care. This note was dictated using voice recognition software and make contain errors or omissions. [facility] Disclaimer: The information contained in this section may have been updated after the patient was seen, as this information can be updated by other users. Medical History (Updated 06/24/22 @ 12:14 by Sudhakar Pablo DPM) Achilles tendinitis of left lower extremity Arthritis HTN (hypertension), benign Hypothyroidism Posterior tibial tendon tear, traumatic Thyroid disease Surgical History (Updated 06/24/22 @ 11:30 by Diana Valencia CMA) History of carpal tunnel release Family History (Updated 06/24/22 @ 11:31 by Diana Valencia CMA) Other Hypertension Stroke Social History Smoking Status: Never smoker alcohol intake: never substance use type: denies use current occupational status: employed Travel in the last 8 weeks: None household members: spouse housing: house current occupation: self-employeed current occupational exposures/hazards: No caffeine: Yes
== END ==
PROVIDERS: PCP Internal Medicine; Visit Provider Nurse Practitioner Family
DX: M50.122 Cervical disc disorder at C5-C6 level with radiculopathy (principal); M47.22 Other spondylosis with radiculopathy, cervical region
CPT/HCPCS: 99212; G0463

== ENCOUNTER 2022-10-13 08:50 | Day surgery (SDC) | payer OTHER, SELFPAY ==
[2022-10-13 09:02] VITALS: BP 143/82; PULSE 78; RESP 18; TEMP 36.4; O2SAT 100; BMI 26.6
[2022-10-13 09:19] VITALS: BP 162/88; PULSE 85; RESP 18; O2SAT 95
[2022-10-13 09:20] VITALS: BP 162/88; PULSE 85; RESP 18; O2SAT 95
[2022-10-13 09:35] VITALS: BP 143/83; PULSE 75; RESP 20
--- NOTE | 2022-10-13 13:01 | P.PCN_ITS ---
Procedure Date: 10/13/22 Time: 10:00 Anesthesiologist:: Lang Watson CRNA Complications:: None Pre-procedure Diagnosis:: Degenerative disc disease cervical spine multilevels. Cervical radiculopathy. Cervical facet arthropathy. Post-procedure Diagnosis:: Same Indications for Procedure:: Patient is a pleasant 62-year-old female that comes our clinic today for left side cervical C4-5-, C5-6 radiofrequency ablation. Patient complains of cervical neck pain with minimal radicular symptoms she rates her pain 6/10. Patient responded very well to medial branch block same levels. Procedure Details:: Procedure Details: Cervical RFA Informed consent was obtained and the risk and benefits of the procedure was explained to the patient. Patient was placed prone on the procedure table. The patient was prepped and draped in sterile fashion. C-arm fluoroscopy was used to view the lumbar spine. The skin and subcutaneous tissues were anesthetized using lidocaine. I placed 20-gauge RF needles into the facet joints of C4-5 and C 5 6 levels on the left side. We underwent sensory stimulation. There is good sensory stimulation at 0.8 V. We underwent motor stimulation. There is no motor stimulation at 2.5 V. We then anesthetized these levels with lidocaine and Depo- Medrol. I used a total of 40 mg Depo-Medrol for both levels. I then burned both levels of C4-5, C5-6 facet joint/medial branches on the left side for 4 minutes at 80 ?C. Patient tolerated the procedure well with no complication. Plan and Disposition:: Patient was discharged without incident.
== END 2022-10-13 09:35 | disposition home or self-care (01) ==
LOC: SC.PAINP 08:50
PROVIDERS: PCP Internal Medicine; Visit Provider Nurse Anesthetist, Certified Registered
DX: M50.122 Cervical disc disorder at C5-C6 level with radiculopathy (principal); M47.22 Other spondylosis with radiculopathy, cervical region
CPT/HCPCS: 64633; 64634; J1040; Q9966

== ENCOUNTER → 2022-10-28 09:24 | Outpatient (POV) | payer OTHER, SELFPAY ==
[2022-10-28 09:35] VITALS: BP 136/72; PULSE 80; RESP 18; O2SAT 96; BMI 26.6
--- NOTE | 2022-10-28 09:57 | EXP.PAIN.SOA ---
[facility] Pain Management SOAP Note Subjective:: Patient is a pleasant 62-year-old female who presents today for follow-up of cervical RFA at C4-C5 and C5-C6 on the left side on 10/13/2022. We are currently treating the patient for degenerative disc disease of cervical spine with cervical radiculopathy symptoms, cervical spondylosis, cervical facet arthropathy. Today the patient states that she has had 0 relief following this procedure and rates her pain a 9 out of 10. Patient denies any new trauma or injury. Patient denies any change location or type of pain she experiences. Patient previously had medial branch blocks that provided at least 70% lasting upwards of 6 months or more. Patient states she was able to increase her activity and range of motion following these previous blocks with decreased pain symptoms. Patient states that she previously had issues with dizziness that she did go to an ENT specialist for who stated it had to do with her neck. Patient states when she has had her cervical medial branch blocks in the past her dizziness has improved dramatically. Patient does use [id number] Tylenol and ibuprofen as needed. Patient is not on any scheduled medications. Her Ty is [id number]. Its been reviewed and appropriate. Review of Systems: General: No recent weight changes, no fever, no sleep disturbances Respiratory: No cough, no shortness of air, no recurring pulmonary infections Cardiovascular/peripheral vascular: No chest pain, no palpitations, no edema, no shortness of breath Gastrointestinal: No new onset incontinence, normal bowel movements reported Genitourinary: No new onset incontinence Musculoskeletal: Neck pain/upper back pain Psychiatric: [Normal mood/affect] Neurological: [Denies weakness in extremities], [denies balance issues] Objective:: Physical Exam: General: Alert and oriented x3, no acute distress, pleasant and cooperative Lungs: Respirations even and unlabored, symmetrical chest expansion Eyes: PERRL Musculoskeletal: Flexion and extension of cervical [spine] somewhat guarded secondary to pain, [antalgic gait noted] Neurological: Speech clear, no gross sensory deficit Assessment:: Degenerative disc disease of cervical spine with cervical radiculopathy symptoms, cervical spondylosis, cervical facet arthropathy Plan:: Patient has not had significant improvement following the cervical RFA. Patient did have limited range of motion of her cervical spine during today's visit. I have discussed with the patient regarding having repeat cervical medial branch blocks. Risk and benefits were discussed with the patient and she would like to proceed forward with this plan of care. Patient did have a cervical block in the past that provided at least 70% improvement for approximately 6 months. I will also order the patient a compounding cream at today's visit. Patient is not on any blood thinners. We will schedule the patient for a left cervical MBB C4-C5 and C5-C6. Patient has been instructed to contact the clinic with any concerns before the next appointment. Dr. Little has reviewed this note and agrees with this plan of care. This note was dictated using voice recognition software and make contain errors or omissions. [facility] Disclaimer: The information contained in this section may have been updated after the patient was seen, as this information can be updated by other users. Medical History Achilles tendinitis of left lower extremity Arthritis HTN (hypertension), benign Hypothyroidism Posterior tibial tendon tear, traumatic Thyroid disease Surgical History History of carpal tunnel release Family History Other Hypertension Stroke Social History Smoking Status: Never smoker
== END ==
PROVIDERS: PCP Internal Medicine; Visit Provider Nurse Practitioner Family
DX: M50.122 Cervical disc disorder at C5-C6 level with radiculopathy (principal); M47.22 Other spondylosis with radiculopathy, cervical region
CPT/HCPCS: 99212; G0463

== ENCOUNTER → 2022-10-28 09:58 | Outpatient (CLI) | payer OTHER, SELFPAY ==
[2022-10-28 11:21] LABS: Amphetamine/Metha Screen,Urine Negative ng/ml (<1000); Barbiturates Screen,Urine Negative ng/ml (<200)
[2022-10-28 11:22] LABS: Benzodiazepines Screen,Urine Negative ng/ml (<200)
[2022-10-28 11:23] LABS: Cannabinoid Screen,Urine Negative ng/ml (<50); Cocaine Screen,Urine Negative ng/ml (<300)
[2022-10-28 11:24] LABS: Methadone Screen,Urine Negative ng/ml (<300); Opiate Screen,Urine Negative ng/ml (<300)
[2022-10-28 11:25] LABS: Phencyclidine Screen,Urine Negative ng/ml (<25)
[2022-11-02 08:10] LABS: Opiates Negative (Cutoff=100)
== END ==
PROVIDERS: PCP Internal Medicine; Visit Provider Nurse Practitioner Family
DX: Z79.891 Long term (current) use of opiate analgesic (principal)
CPT/HCPCS: 80305; 80361; 80365; G0480

== ENCOUNTER → 2022-11-17 15:21 | Outpatient (CLI) | payer OTHER, SELFPAY ==
--- NOTE | 2022-11-17 15:27 | XR_ITS ---
FINAL REPORT CLINICAL HISTORY: ankle pain FINDINGS: LEFT ANKLE Three views of the left ankle demonstrate no acute fracture or dislocation. There are postoperative changes with anchor screws in the medial navicular bone and the medial malleolus. There is moderate plantar calcaneal spurring. The joint spaces are preserved. The soft tissues are unremarkable. IMPRESSION: No acute bony abnormality. Reviewed, Interpreted and Dictated by Faith Gillespie MD Transcribed by aZinab Gallego Authenticated and [facility]
--- NOTE | 2022-11-17 15:27 | XR_ITS ---
FINAL REPORT CLINICAL HISTORY: foot pain COMPARISON: May 02, 2021 FINDINGS: LEFT FOOT Three views of the left foot demonstrate no acute fracture or dislocation. There are postoperative changes with anchor screws in the medial navicular bone and the medial malleolus. There is moderate plantar calcaneal spurring. The joint spaces are preserved. The soft tissues are unremarkable. IMPRESSION: No acute bony abnormality, unchanged from prior exam. Reviewed, Interpreted and Dictated by Faith Gillespie MD Transcribed by Zainab Gallego Authenticated and [facility]
== END ==
PROVIDERS: PCP Internal Medicine; Visit Provider Podiatrist
DX: M72.2 Plantar fascial fibromatosis (principal); M79.672 Pain in left foot; M25.572 Pain in left ankle and joints of left foot
CPT/HCPCS: 73610; 73630

== ENCOUNTER → 2022-11-23 11:08 | Outpatient (POV) | payer OTHER, SELFPAY ==
[2022-11-23 12:40] VITALS: BP 111/74; PULSE 78; RESP 18; O2SAT 98; BMI 27.4
--- NOTE | 2022-11-23 12:50 | EXP.PAIN.SOA ---
[facility] Pain Management SOAP Note Subjective:: Patient is a pleasant 62-year-old female who presents today for injection denial. We are currently treating the patient for degenerative disc disease of cervical spine with cervical radiculopathy symptoms, cervical facet arthropathy, cervical spondylosis. Today she rates her pain a 9 out of 10. Patient denies any new trauma or injury. Patient denies any change location or type of pain she experiences. Patient does states she continues to experience significant pain in her upper back/neck and describes this as a aching, throbbing sensation that is constant. Patient states she does have difficulty performing activities of daily living such as cooking and cleaning due to the pain. She states she also has limited range of motion of her neck. Patient has had multiple facet injections and RFA's in the past that provided significant improvement. Patient did recently go to Dr. Bradshaw office and had injections for her left plantar fasciitis. Patient states she has had significant improvement with this injection. Patient is also prescribed compounding cream that she states has helped additionally for multiple areas of pain including her neck however short-term. Patient's Ty is [id number]. Its been reviewed and appropriate. Review of Systems: General: No recent weight changes, no fever, no sleep disturbances Respiratory: No cough, no shortness of air, no recurring pulmonary infections Cardiovascular/peripheral vascular: No chest pain, no palpitations, no edema, no shortness of breath Gastrointestinal: No new onset incontinence, normal bowel movements reported Genitourinary: No new onset incontinence Musculoskeletal: Neck pain Psychiatric: [Normal mood/affect] Neurological: [Denies weakness in extremities], [denies balance issues] Objective:: Physical Exam: General: Alert and oriented x3, no acute distress, pleasant and cooperative Lungs: Respirations even and unlabored, symmetrical chest expansion Eyes: PERRL Musculoskeletal: Flexion and extension of cervical [spine] somewhat guarded secondary to pain, [antalgic gait noted] Neurological: Speech clear, no gross sensory deficit FINDINGS: Study is somewhat limited technically due to motion artifact and low signal to noise ratio specially on the axial images.? There is normal alignment.? The craniocervical junction has an unremarkable appearance. C2-C3 and C3-C4 have an unremarkable appearance. C4-C5: Mild degenerative disc disease with bulging disc.? There is mild bilateral uncovertebral hypertrophy.? There is mild narrowing of the canal at this level at 10 mm C5-C6: Degenerate disc disease with bulging disc.? There is mild bilateral uncovertebral hypertrophy.? There is mild narrowing of the canal at this level at 10 mm C6-C7: There is a small broad-based left paracentral disc protrusion causing left lateral recess narrowing. There is 3 mm anterolisthesis of T2 on T3 and T3 on T4.? Small central disc protrusion noted at T3-T4 only imaged in the sagittal plane. IMPRESSION: Study is somewhat limited technically due to motion artifact.? There is multilevel degenerative disc disease with bulging disc and uncovertebral hypertrophy.? Overall, these findings appear slightly worse compared to 05/07/2015 however, it is difficult to this compare the 2 exams due to the limitations on today's exam.? Please see above for detail. There is a small left paracentral disc protrusion at C6-C7 not readily apparent on the previous exam.? There is a small central disc protrusion at T3-T4. Dictated by:? Kendell Madera MD 02/23/2020 10:01 Electronically signed by? Kendell Madera MD in [place] 02/23/2020 10:01 Assessment:: Degenerative disc disease of cervical spine with cervical radiculopathy symptoms, cervical facet arthropathy, cervical spondylosis Plan:: Patient is experiencing significant pain in her upper back/neck with radiating symptoms and decreased range of motion. Patient
== END ==
PROVIDERS: PCP Internal Medicine; Visit Provider Nurse Practitioner Family
DX: M50.123 Cervical disc disorder at C6-C7 level with radiculopathy (principal); M47.22 Other spondylosis with radiculopathy, cervical region
CPT/HCPCS: 99212; G0463

== ENCOUNTER → 2022-11-23 16:29 | Outpatient (CLI) | payer OTHER, SELFPAY ==
--- NOTE | 2022-11-23 16:33 | CT_ITS ---
PROCEDURE INFORMATION: Exam: CT Abdomen And Pelvis Without Contrast Exam date and time: 11/23/2022 4:34 PM Age: 62 years old Clinical indication: Abdominal pain; Other: Rlq pain; Additional info: Rlq pain x3 days TECHNIQUE: Imaging protocol: Computed tomography of the abdomen and pelvis without contrast. Radiation optimization: All CT scans at this facility use at least one of these dose optimization techniques: automated exposure control; mA and/or kV adjustment per patient size (includes targeted exams where dose is matched to clinical indication); or iterative reconstruction. Other protocol: This patient has received [address] and 0 known cardiac nuclear medicine studies in the 12 months prior to the current study. COMPARISON: CT ABDOMEN PELVIS W CON 11/28/2021 8:55 PM FINDINGS: Liver: Normal. No mass. Gallbladder and bile ducts: Cholecystectomy. Pancreas: Normal. No ductal dilation. Spleen: Normal. No splenomegaly. Adrenal glands: Normal. No mass. Kidneys and ureters: No hydronephrosis or stone. Stomach and bowel: No diverticulitis. No bowel obstruction or evidence of appendicitis. Appendix: Normal appendix. Intraperitoneal space: Unremarkable. No free air. No significant fluid collection. Vasculature: Limited atherosclerosis. Lymph nodes: Unremarkable. No enlarged lymph nodes. Urinary bladder: Unremarkable as visualized. Reproductive: Unremarkable as visualized. Bones/joints: No acute fracture. Soft tissues: Unremarkable. Other findings: No other acute disease seen on nonenhanced study. As Above. IMPRESSION: 1. No diverticulitis. No bowel obstruction or evidence of appendicitis. 2. No hydronephrosis or stone. 3. No other acute disease seen on nonenhanced study. As Above.
[2022-11-23 17:34] LABS: Alanine Aminotransferase 32 U/L (12-78); Albumin Level 4.8 g/dl (3.5-5.0); Albumin/Globulin Ratio 1.2 (1.1-1.8); Alkaline Phosphatase 92 U/L (38-126); Anion Gap 12.4 mEq/L (5-15); Aspartate Amino Transferase 31 U/L (14-36); Basophils # 0.2 K/mm3 (0-0.2); Basophils % 1.1 % (0.1-2.0); Bilirubin,Total 0.5 mg/dl (0.2-1.3); Blood Urea Nitrogen 25 mg/dl (7-17); Calcium 8.9 mg/dl (8.4-10.2); Carbon Dioxide 29 mmol/L (22.0-30.0); Chloride 102 mmol/L (98-107); Eosinophils # 0.5 K/mm3 (0.0-0.4); Eosinophils % 3.4 % (0.1-12.0); Estimated Glomerular Filt Rate 38 ml/min (>60); GFR (African American) 46 ML/MIN (>60); Globulin 3.9 g/dL (1.3-3.2); Glucose 91 mg/dl (74-100); Hematocrit 44.5 % (37.0-47.0); Hemoglobin 14.1 g/dL (12.2-16.2); Lymphocytes % 21.6 % (10-50); Mean Corpuscular HGB Conc 31.7 g/dL (31.8-35.4); Mean Corpuscular Hemoglobin 29.1 pg (27.0-31.2); Mean Corpuscular Volume 91.9 fl (81-99); Mean Platelet Volume 7.9 fl (7.4-10.4); Monocytes # 0.8 K/mm3 (0.1-1.0); Monocytes % 5.6 % (1.7-9.3); Neutrophils # 9.4 K/mm3 (1.8-7.8); Neutrophils % 68.2 % (37.0-80.0); Platelet Count 429 K/mm3 (142-424); Potassium 4.4 mmoL/L (3.5-5.1); Red Blood Count 4.84 M/mm3 (4.20-5.40); Red Cell Distribution Width 13.4 % (11.5-17.5); Sodium 139 mmol/L (136-145); Total Protein,Serum 8.7 g/dl (6.3-8.2); White Blood Count 13.8 K/mm3 (4.8-10.8)
== END ==
PROVIDERS: PCP Internal Medicine; Visit Provider Internal Medicine
DX: R10.31 Right lower quadrant pain (principal)
CPT/HCPCS: 36415; 74176; 80053; 85025

== ENCOUNTER → 2022-11-23 18:15 | Outpatient (CLI) | payer OTHER, SELFPAY | PROVIDERS: PCP Internal Medicine; Visit Provider Internal Medicine | DX: N39.0 Urinary tract infection, site not specified (principal) | CPT/HCPCS: 87086 ==

== ENCOUNTER → 2022-12-11 07:51 | Outpatient (POV) | payer OTHER, SELFPAY ==
[2022-12-11 08:03] VITALS: BP 122/75; PULSE 63; RESP 18; O2SAT 97; BMI 26.6
--- NOTE | 2022-12-11 08:44 | EXP.PAIN.SOA ---
[facility] Pain Management SOAP Note Subjective:: This patient is a very pleasant 62-year-old female that comes our clinic today for follow-up visit following denial from insurance regarding cervical epidural steroid injection C6-7 level. Patient describes her cervical neck pain as constant, dull, aching. She reports radicular symptoms into the left trapezius as well as the left shoulder. Patient has had cervical epidural in the past with significant improvement. Following cervical epidural steroid injection patient had a series of medial branch block bilateral C5-6, C6-7. Patient reports 30 to 40% improvement after receiving medial branch blocks/facet injections. However, 90+ percent improvement after receiving cervical epidural steroid injection C6-7. Patient has imaging on the C-spine from 02/22/2020. Results revealed multilevel degenerative disc cervical spine. Disc bulge C6-7. Patient certainly has moderate to significant pathology in the cervical spine causing chronic pain with radicular symptoms. Patient rates her pain today /. Patient is tried and failed physical therapy in 2021. Patient continues taking NSAIDs with mild to moderate relief in regards to her symptoms. Patient continues with home exercise program. We discussed in detail the pathology in the cervical spine. Treatment options. Objective:: Patient is awake alert [place] x3. In no acute distress. Flexion-extension cervical spine somewhat guarded secondary to pain. Deep tendon reflexes upper lower extremities normal. Motor strength upper and lower extremities normal. There is no gross sensory deficit. Gait is normal. Assessment:: Degenerative disc disease cervical spine multilevels. Cervical radiculopathy. Cervical disc bulge multilevel. Cervical spondylosis. Plan:: I discussed in detail with the patient regarding treatment options. We will proceed with attempts at insurance approval for cervical epidural steroid injection C6-7. Also, insurance approval for updating cervical MRI. Patient understands. I answered her questions. We will proceed as planned. [facility] Disclaimer: The information contained in this section may have been updated after the patient was seen, as this information can be updated by other users. Medical History Achilles tendinitis of left lower extremity Arthritis HTN (hypertension), benign Hypothyroidism Posterior tibial tendon tear, traumatic Thyroid disease Surgical History History of carpal tunnel release Family History Other Hypertension Stroke Social History Smoking Status: Never smoker alcohol intake: never substance use type: denies use current occupational status: employed Travel in the last 8 weeks: None household members: spouse housing: house current occupation: self-employeed current occupational exposures/hazards: No caffeine: Yes
== END ==
PROVIDERS: PCP Internal Medicine; Visit Provider Nurse Anesthetist, Certified Registered
DX: M50.123 Cervical disc disorder at C6-C7 level with radiculopathy (principal); M47.22 Other spondylosis with radiculopathy, cervical region
CPT/HCPCS: 99212; G0463

== ENCOUNTER → 2022-12-16 10:13 | Outpatient (CLI) | payer OTHER, SELFPAY ==
--- NOTE | 2022-12-16 10:13 | MR_ITS ---
FINAL REPORT CLINICAL HISTORY: LEFT DORSAL/MEDIAL FOOT PAIN AND BURNING, HX SURGERY 2 YEARS AGO. COMPARISON: 01/22/2021 FINDINGS: Multiplanar MR imaging of the left foot was performed without contrast. Postoperative changes in the medial malleolus and medial navicular. The bony structures are intact without evidence of fracture, bone bruise or marrow edema. The flexor and extensor tendons are intact. No ligamentous injury is identified. The musculature is intact. There is thickening of the posterior plantar aponeurosis consistent with plantar fasciitis with partial tear which has worsened from prior study. There is an osteochondral lesion in the medial talar dome measuring 6 mm which appears worse compared to the prior study. IMPRESSION: Interval postoperative changes medial malleolus and medial navicular. Worsened osteochondral lesion medial talar dome. Worsened tear at the posterior insertion of the plantar aponeurosis. Reviewed, Interpreted and Dictated by Bhaskar Banda III, MD Transcribed by Lotus Roth Authenticated and [facility]
== END ==
PROVIDERS: PCP Internal Medicine; Visit Provider Nurse Practitioner Family
DX: M79.672 Pain in left foot (principal); M76.822 Posterior tibial tendinitis, left leg; M24.20 Disorder of ligament, unspecified site
CPT/HCPCS: 73718

== ENCOUNTER 2022-12-29 10:58 | Day surgery (SDC) | payer MEDICARE, OTHER, SELFPAY ==
[2022-12-29 11:16] VITALS: BP 136/80; PULSE 72; RESP 18; TEMP 36.2; O2SAT 100; BMI 26.6
[2022-12-29 11:27] VITALS: BP 127/76; PULSE 74; RESP 18; O2SAT 98
[2022-12-29 11:28] VITALS: BP 127/76; PULSE 74; RESP 18; O2SAT 97
[2022-12-29 11:32] VITALS: BP 130/79; PULSE 74; RESP 18; O2SAT 100
--- NOTE | 2022-12-29 11:33 | P.PCN_ITS ---
Procedure Date: 12/29/22 Time: 11:30 Anesthesiologist:: Lang Watson CRNA Complications:: None Pre-procedure Diagnosis:: Degenerative disc disease cervical spine cervical radiculopathy. Cervical spondylosis. Post-procedure Diagnosis:: Same. Indications for Procedure:: Patient is a very pleasant 62-year-old female that comes our clinic today for cervical epidural steroid injection C6-7 level. She has had this in the past with significant improvement terms of her cervical neck pain as well as cervical radicular symptoms. She rates her pain today /10. Procedure Details:: Procedure:Cervical epidural steroid injection Informed consent was obtained and the risks and benefits of the procedure were explained to the patient. The patient was taken to the procedure room and noninvasive monitors placed, including noninvasive blood pressure cuff and pulse oximeter. The neck was prepped using Chloraprep as a cleansing solution. The C6- C7 interspace was viewed using fluroscopy. The skin and subcutaneous tissues were anesthetized using lidocaine 1.5% and a 25-gauge needle. After this an 18- gauge Touhy epidural needle was placed into the C6-C7 interspace under fluroscopy guidance and advanced using loss of resistance to air until the epidural space was encountered. After confirmation of needle placement in the epidural space using contrast dye, a solution containing normal saline, 2 mL and Depo-Medrol 80 mg was incrementally injected into the cervical epidural space.~ The patient tolerated the procedure well with no complications. The patient was observed in the Pain Clinic and then discharged home neurologically intact. Plan and Disposition:: Patient was discharged without incident.
== END 2022-12-29 11:32 | disposition home or self-care (01) ==
PROVIDERS: PCP Internal Medicine; Visit Provider Nurse Anesthetist, Certified Registered
DX: M50.123 Cervical disc disorder at C6-C7 level with radiculopathy (principal)
CPT/HCPCS: 62321; J1040; Q9966

== ENCOUNTER → 2023-01-04 12:38 | Outpatient (CLI) | payer MEDICARE, OTHER, SELFPAY ==
--- NOTE | 2023-01-04 12:46 | MR_ITS ---
FINAL REPORT CLINICAL HISTORY: NECK PAIN. left sided neck pain and shoulder pain. headache. no injury or trauma COMPARISON: 02/22/2020 FINDINGS: Multiplanar MR imaging of the cervical spine was performed without contrast. On the sagittal T2-weighted images, disc degeneration is seen throughout the lumbar spine. There is no evidence of fracture. The vertebral alignment is normal. The cervical spinal cord has an unremarkable appearance without evidence of mass, edema or syrinx. No significant canal stenosis is identified. The cervicomedullary junction is normal. C2-3: There is no significant canal stenosis or neural foraminal narrowing. C3-4: An annular disc bulge is present. There is no significant canal stenosis or neural foraminal narrowing. C4-5: There is a disc osteophyte complex. There is no significant canal stenosis. There is severe right moderate left neural foraminal narrowing. C5-6: There is a disc osteophyte complex. There is no significant canal stenosis. There is severe bilateral neural foraminal narrowing. C6-7: An annular disc bulge is present. There are uncovertebral osteophytes. There is a 5 mm focus of abnormal signal in the right neural foramen which may represent calcification. There is severe right neural foraminal narrowing. This appears stable as compared to the prior exam. C7-T1: There is no significant canal stenosis or neural foraminal narrowing. IMPRESSION: Multilevel degenerative disc disease as detailed above. Reviewed, Interpreted and Dictated by Bhaskar Banda III, MD Transcribed by Erica King Authenticated and [facility]
== END ==
PROVIDERS: PCP Internal Medicine; Visit Provider Nurse Practitioner Family
DX: M54.2 Cervicalgia (principal)
CPT/HCPCS: 72141; 76376

== ENCOUNTER → 2023-01-18 09:42 | Outpatient (POV) | payer MEDICARE, OTHER, SELFPAY ==
--- NOTE | 2023-01-18 10:07 | A.OFFVIS_ITS ---
[facility] Pain Management SOAP Note Subjective:: Patient is a pleasant 62-year-old female who presents today for follow-up of cervical epidural steroid injection at C6-C7 on 12/29/2022. We are currently treating the patient for degenerative disc disease of cervical spine with cervical radiculopathy symptoms, cervical arthropathy, cervical spondylosis, cervical disc bulge multilevels. Today she rates her pain a 0 out of 10. Patient denies any new trauma or injury. Patient denies any change location or type of pain she experiences. Patient states she has had 100% improvement following this injection and feels like it still continuing to provide additional relief. Patient is currently managed with compounding cream and does take [id number] NSAIDs as needed. Her Ty is [id number]. Its been reviewed and appropriate. Review of Systems: General: No recent weight changes, no fever, no sleep disturbances Respiratory: No cough, no shortness of air, no recurring pulmonary infections Cardiovascular/peripheral vascular: No chest pain, no palpitations, no edema, no shortness of breath Gastrointestinal: No new onset incontinence, normal bowel movements reported Genitourinary: No new onset incontinence Musculoskeletal: Neck pain Psychiatric: [Normal mood/affect] Neurological: [Denies weakness in extremities], [denies balance issues] Objective:: Physical Exam: General: Alert and oriented x3, no acute distress, pleasant and cooperative Lungs: Respirations even and unlabored, symmetrical chest expansion Eyes: PERRL Musculoskeletal: Flexion and extension of cervical [spine] somewhat guarded secondary to pain, [antalgic gait noted] Neurological: Speech clear, no gross sensory deficit Assessment:: Degenerative disc disease of cervical spine with cervical radiculopathy symptoms, cervical arthropathy, cervical spondylosis, cervical disc bulge multilevel Plan:: Patient has had significant improvement of her neck pain following her cervical epidural and does not require any additional injective therapy. Patient will return to clinic in 1 month for reevaluation of symptoms and plan of care. Patient has been instructed to contact the clinic with any concerns before the next appointment. Dr. Little has reviewed this note and agrees with this plan of care. This note was dictated using voice recognition software and make contain errors or omissions. [facility] Disclaimer: The information contained in this section may have been updated after the patient was seen, as this information can be updated by other users. Medical History Achilles tendinitis of left lower extremity Arthritis HTN (hypertension), benign Hypothyroidism Posterior tibial tendon tear, traumatic Thyroid disease Surgical History History of carpal tunnel release Family History Other Hypertension Stroke Social History Smoking Status: Never smoker alcohol intake: never substance use type: denies use current occupational status: employed Travel in the last 8 weeks: None household members: spouse housing: house current occupation: self-employeed current occupational exposures/hazards: No caffeine: Yes
[2023-01-18 10:38] VITALS: BP 116/67; PULSE 84; RESP 18; O2SAT 98; BMI 26.6
== END ==
PROVIDERS: PCP Internal Medicine; Visit Provider Nurse Practitioner Family
DX: M50.123 Cervical disc disorder at C6-C7 level with radiculopathy (principal); M47.22 Other spondylosis with radiculopathy, cervical region
CPT/HCPCS: 99212; G0463

== ENCOUNTER → 2023-02-15 10:14 | Outpatient (POV) | payer MEDICARE, OTHER, SELFPAY ==
--- NOTE | 2023-02-15 10:29 | A.OFFVIS_ITS ---
[facility] Pain Management SOAP Note Subjective:: Patient is a pleasant 62-year-old female who presents today for follow-up. We are currently treating the patient for degenerative disc disease of cervical spine with cervical radiculopathy symptoms, cervical arthropathy, cervical spondylosis, cervical disc bulge multilevels.? Today she rates her pain a 0 out of 10.? Patient continues to do well following her cervical epidural at C6-C7 on 12/29/2022. Patient denies any new trauma or injury.? Patient denies any change location or type of pain she experiences. She states she continues to be able to increase her activity with less pain symptoms and has overall better function. She is currently managed with compounding cream and does take [id number] NSAIDs as needed.? She is not on any scheduled medications. Her Ty is [id number].? Its been reviewed and appropriate. Review of Systems: General: No recent weight changes, no fever, no sleep disturbances Respiratory: No cough, no shortness of air, no recurring pulmonary infections Cardiovascular/peripheral vascular: No chest pain, no palpitations,? no edema, no shortness of breath Gastrointestinal: No new onset incontinence, normal bowel movements reported Genitourinary: No new onset incontinence Musculoskeletal: Neck pain Psychiatric: [Normal mood/affect] Neurological: [Denies weakness in extremities], [denies balance issues] Objective:: Physical Exam: General: Alert and oriented x3, no acute distress, pleasant and cooperative Lungs: Respirations even and unlabored, symmetrical chest expansion Eyes: PERRL Musculoskeletal: Flexion and extension of cervical [spine] somewhat guarded secondary to pain, [antalgic gait noted] Neurological: Speech clear, no gross sensory deficit Assessment:: Degenerative disc disease of cervical spine with cervical radiculopathy sympto ms, cervical arthropathy, cervical spondylosis, cervical disc bulge multilevels Plan:: Patient continues to do well following her cervical epidural and does not require any additional injective therapy. Patient will return to clinic in 3 months for reevaluation of symptoms and plan of care. Patient has been instructed to contact the clinic with any concerns before the next appointment. Dr. Little has reviewed this note and agrees with this plan of care. This note was dictated using voice recognition software and make contain errors or omissions. [facility] Disclaimer: The information contained in this section may have been updated after the marily diana was seen, as this information can be updated by other users. Medical History Achilles tendinitis of left lower extremity Arthritis HTN (hypertension), benign Hypothyroidism Posterior tibial tendon tear, traumatic Thyroid disease Surgical History History of carpal tunnel release Family History Other Hypertension Stroke Social History Smoking Status: Never smoker alcohol intake: never substance use type: denies use current occupational status: employed Travel in the last 8 weeks: None household members: spouse housing: house current occupation: self-employeed current occupational exposures/hazards: No caffeine: Yes
[2023-02-15 10:31] VITALS: BP 117/76; PULSE 80; RESP 18; O2SAT 99; BMI 26.6
== END ==
PROVIDERS: PCP Internal Medicine; Visit Provider Nurse Practitioner Family
DX: M50.123 Cervical disc disorder at C6-C7 level with radiculopathy (principal); M46.22 Osteomyelitis of vertebra, cervical region
CPT/HCPCS: 99212; G0463

== ENCOUNTER → 2023-05-07 09:26 | Outpatient (POV) | payer MEDICARE, OTHER, SELFPAY ==
[2023-05-07 09:49] VITALS: BP 127/72; PULSE 77; RESP 18; O2SAT 96; BMI 26.6
--- NOTE | 2023-05-07 09:56 | A.OFFVIS_ITS ---
[facility] Pain Management SOAP Note Subjective:: Patient is a pleasant 62-year-old female that comes our clinic today for follow- up visit regarding cervical neck pain she describes as constant, dull, aching. She rates her cervical neck pain 7/10. Also complains of bilateral arm radicular symptoms at times. Patient is status post cervical epidural steroid injection at the C6-7 level on 12/29/2022. She reports 90% improvement terms of her overall symptoms following the injections. She is requesting a second cervical epidural steroid injection C6-7 level. I feel this is reasonable. Due to the fact she was somewhat better following the first 1. Her recent cervical MRI shows degenerative disc multilevel cervical spine. Cervical disc bulge C5- 6, C6-7. Patient's Ty #[id number] has been reviewed and appropriate. Objective:: Patient is awake alert [place] x3. In no acute distress. Flexion-extension lumbar spine somewhat guarded secondary to pain. Deep tendon reflexes upper lower extremities normal. Motor strength upper and lower extremities normal. There is no gross sensory deficit. Gait is normal. Assessment:: Degenerative disc cervical spine multilevels. Cervical radiculopathy. Plan:: Discussed in detail with the patient regarding repeat cervical epidural steroid injection C6-7 level. I answered her questions. She wishes to proceed. We will schedule for her today. [facility] Disclaimer: The information contained in this section may have been updated after the p stephanie was seen, as this information can be updated by other users. Medical History Achilles tendinitis of left lower extremity Arthritis HTN (hypertension), benign Hypothyroidism Posterior tibial tendon tear, traumatic Thyroid disease Surgical History History of carpal tunnel release Family History Other Hypertension Stroke Social History Smoking Status: Never smoker alcohol intake: never substance use type: denies use current occupational status: employed Travel in the last 8 weeks: None household members: spouse housing: house current occupation: self-employeed current occupational exposures/hazards: No caffeine: Yes
== END ==
PROVIDERS: PCP Internal Medicine; Visit Provider Nurse Anesthetist, Certified Registered
DX: M50.122 Cervical disc disorder at C5-C6 level with radiculopathy (principal); M50.123 Cervical disc disorder at C6-C7 level with radiculopathy
CPT/HCPCS: 99212; G0463

== ENCOUNTER 2023-05-25 08:04 | Day surgery (SDC) | payer MEDICARE, OTHER, SELFPAY ==
[2023-05-25 08:23] VITALS: BP 135/69; PULSE 68; RESP 18; TEMP 36.4; O2SAT 100; BMI 26.6
[2023-05-25 08:47] VITALS: BP 140/72; PULSE 63; RESP 18; O2SAT 100
--- NOTE | 2023-05-25 08:49 | P.PCN_ITS ---
Procedure Date: 05/25/23 Time: 08:25 Anesthesiologist:: Lang Watson CRNA Complications:: None Pre-procedure Diagnosis:: Degenerative disc cervical spine multilevels. Cervical radiculopathy Post-procedure Diagnosis:: Same. Indications for Procedure:: Patient is a very pleasant 63-year-old female who comes our clinic today for therapeutic cervical epidural steroid injection C6-7 level. Patient's had same injection in the past with significant improvement terms of her overall cervical neck pain as well as bilateral shoulder and arm radicular symptoms at times. Procedure Details:: Procedure:Cervical epidural steroid injection Informed consent was obtained and the risks and benefits of the procedure were explained to the patient. The patient was taken to the procedure room and noninvasive monitors placed, including noninvasive blood pressure cuff and pulse oximeter. The neck was prepped using Chloraprep as a cleansing solution. The C6- C7 interspace was viewed using fluroscopy. The skin and subcutaneous tissues were anesthetized using lidocaine 1.5% and a 25-gauge needle. After this an 18- gauge Touhy epidural needle was placed into the C6-C7 interspace under fluroscopy guidance and advanced using loss of resistance to air until the epidural space was encountered. After confirmation of needle placement in the epidural space using contrast dye, a solution containing normal saline, 2 mL and Depo-Medrol 80 mg was incrementally injected into the cervical epidural space.~ The patient tolerated the procedure well with no complications. The patient was observed in the Pain Clinic and then discharged home neurologically intact. Plan and Disposition:: Patient was discharged without incident.
[2023-05-25 08:56] VITALS: BP 145/56; PULSE 71; RESP 18; O2SAT 99
[2023-05-25 09:01] VITALS: BP 145/56; PULSE 71; RESP 18; O2SAT 99
== END 2023-05-25 08:47 | disposition home or self-care (01) ==
PROVIDERS: PCP Internal Medicine; Visit Provider Nurse Anesthetist, Certified Registered
DX: M50.123 Cervical disc disorder at C6-C7 level with radiculopathy (principal)
CPT/HCPCS: 62321; J1040; Q9966

== ENCOUNTER → 2023-06-09 08:33 | Outpatient (POV) | payer MEDICARE, OTHER, SELFPAY ==
--- NOTE | 2023-06-09 08:46 | EXP.PAIN.SOA ---
[facility] Pain Management SOAP Note Subjective:: Patient is a pleasant 63-year-old female who presents today for follow-up of cervical epidural steroid injection C6-C7 on 05/25/2023. We are currently treating the patient for degenerative disc disease of cervical spine with cervical radiculopathy symptoms. Today she rates her pain a 2 out of 10. Patient states that she has at least had 60 to 70% improvement and feels like it is continuing to provide additional relief. Patient does typically get several months out of each injection. During this time she does state that it is easy to do her normal activities of daily living with decreased pain symptoms. Patient is not on any scheduled medications. Her Ty is [id number]. Its been reviewed and appropriate. Review of Systems: General: No recent weight changes, no fever, no sleep disturbances Respiratory: No cough, no shortness of air, no recurring pulmonary infections Cardiovascular/peripheral vascular: No chest pain, no palpitations, no edema, no shortness of breath Gastrointestinal: No new onset incontinence, normal bowel movements reported Genitourinary: No new onset incontinence Musculoskeletal: Neck pain Psychiatric: [Normal mood/affect] Neurological: [Denies weakness in extremities], [denies balance issues] Objective:: Physical Exam: General: Alert and oriented x3, no acute distress, pleasant and cooperative Lungs: Respirations even and unlabored, symmetrical chest expansion Eyes: PERRL Musculoskeletal: Flexion and extension of cervical [spine] somewhat guarded secondary to pain, [antalgic gait noted] Neurological: Speech clear, no gross sensory deficit Assessment:: Degenerative disc disease of cervical spine with cervical radiculopathy symptoms Plan:: Patient has had significant improvement of her pain symptoms in her neck and bilateral arms and does not require any additional injective therapy at this time. Patient will return to clinic in 1 month for reevaluation of symptoms and plan of care. Patient has been instructed to contact the clinic with any concerns before the next appointment. Dr. Little has reviewed this note and agrees with this plan of care. This note was dictated using voice recognition software and make contain errors or omissions. [facility] Disclaimer: The information contained in this section may have been updated after the patient was seen, as this information can be updated by other users. Medical History Achilles tendinitis of left lower extremity Arthritis HTN (hypertension), benign Hypothyroidism Posterior tibial tendon tear, traumatic Thyroid disease Surgical History History of carpal tunnel release Family History Other Hypertension Stroke Social History Smoking Status: Never smoker alcohol intake: never substance use type: denies use current occupational status: employed Travel in the last 8 weeks: None household members: spouse housing: house current occupation: self-employeed current occupational exposures/hazards: No caffeine: Yes
[2023-06-09 08:53] VITALS: BP 123/74; PULSE 79; RESP 18; O2SAT 99; BMI 26.6
== END ==
PROVIDERS: PCP Internal Medicine; Visit Provider Nurse Practitioner Family
DX: M50.10 Cervical disc disorder with radiculopathy, unspecified cervical region (principal)
CPT/HCPCS: 99212; G0463

== ENCOUNTER → 2023-07-08 09:23 | Outpatient (POV) | payer MEDICARE, OTHER, SELFPAY ==
--- NOTE | 2023-07-08 09:37 | A.OFFVIS_ITS ---
[facility] Pain Management SOAP Note Subjective:: Patient is a pleasant 63-year-old female who presents today for follow-up. We are currently treating the patient for degenerative disc disease of cervical spine with cervical radiculopathy symptoms. Today she rates her pain a 6 out of 10. Patient denies any new trauma or injury. She does state that she is starting to notice that her previous cervical epidural is wearing off and going back towards her baseline. Patient does describe her pain in her neck and upper extremities as a aching, throbbing sensation with burning and tingling into her extremities. Patient does state the pain interferes with her ability to perform activities of daily living such as cooking and cleaning. Patient does on average get approximately 70% improvement lasting approximately 2 months with each injection. Patient is not on any scheduled medications. Her Ty is [id number]. Its been reviewed and appropriate. Review of Systems: General: No recent weight changes, no fever, no sleep disturbances Respiratory: No cough, no shortness of air, no recurring pulmonary infections Cardiovascular/peripheral vascular: No chest pain, no palpitations, no edema, no shortness of breath Gastrointestinal: No new onset incontinence, normal bowel movements reported Genitourinary: No new onset incontinence Musculoskeletal: Neck pain, bilateral upper arm pain Psychiatric: [Normal mood/affect] Neurological: [Denies weakness in extremities], [denies balance issues] Objective:: Physical Exam: General: Alert and oriented x3, no acute distress, pleasant and cooperative Lungs: Respirations even and unlabored, symmetrical chest expansion Eyes: PERRL Musculoskeletal: Flexion and extension of cervical [spine] somewhat guarded secondary to pain, [antalgic gait noted] Neurological: Speech clear, no gross sensory deficit Assessment:: Degenerative disc disease of cervical spine with cervical radiculopathy symptoms, neck pain Plan:: Patient is starting to experience worsening pain in her neck and upper extremities with limited range of motion. I have discussed with the patient that she may benefit from repeat cervical epidural steroid injection. Risk and benefits were explained to the patient and she would like to proceed forward with this plan of care. Patient is not on any blood thinners. Patient will be scheduled for a NORA C6-C7. Patient has been instructed to contact the clinic with any concerns before the next appointment. Dr. Little has reviewed this note and agrees with this plan of care. This note was dictated using voice recognition software and make contain errors or omissions. [facility] Disclaimer: The information contained in this section may have been updated after the patient was seen, as this information can be updated by other users. Medical History Achilles tendinitis of left lower extremity Arthritis HTN (hypertension), benign Hypothyroidism Posterior tibial tendon tear, traumatic Thyroid disease Surgical History History of carpal tunnel release Family History Other Hypertension Stroke Social History Smoking Status: Never smoker alcohol intake: never substance use type: denies use current occupational status: employed Travel in the last 8 weeks: None household members: spouse housing: house current occupation: self-employeed current occupational exposures/hazards: No ca
[2023-07-08 11:13] VITALS: BP 132/82; PULSE 82; RESP 18; O2SAT 98; BMI 26.6
== END ==
PROVIDERS: PCP Internal Medicine; Visit Provider Nurse Practitioner Family
DX: M50.10 Cervical disc disorder with radiculopathy, unspecified cervical region (principal)
CPT/HCPCS: 99212; G0463

== ENCOUNTER 2023-07-20 07:48 | Day surgery (SDC) | payer MEDICARE, OTHER, SELFPAY ==
[2023-07-20 08:16] VITALS: BP 156/79; PULSE 68; RESP 18; TEMP 36.9; O2SAT 99; BMI 26.6
[2023-07-20 08:28] VITALS: BP 149/71; PULSE 75; RESP 18; O2SAT 97
[2023-07-20 08:35] VITALS: BP 122/83; PULSE 68; RESP 18; O2SAT 99
--- NOTE | 2023-07-20 08:51 | P.PCN_ITS ---
Procedure Date: 07/20/23 Time: 08:30 Anesthesiologist:: Lang Watson CRNA Complications:: None Pre-procedure Diagnosis:: Degenerative disc cervical spine multilevels. Cervical radiculopathy. Post-procedure Diagnosis:: Same. Indications for Procedure:: Patient is a very pleasant 63-year-old female comes our clinic today for repeat cervical epidural steroid injection. Patient complains of posterior cervical neck pain. Bilateral arm radicular symptoms at times. Patient rates her pain 6/10. Patient responded very well to previous cervical epidural steroid injection. Procedure Details:: Procedure:Cervical epidural steroid injection Informed consent was obtained and the risks and benefits of the procedure were explained to the patient. The patient was taken to the procedure room and noninvasive monitors placed, including noninvasive blood pressure cuff and pulse oximeter. The neck was prepped using Chloraprep as a cleansing solution. The C6- C7 interspace was viewed using fluroscopy. The skin and subcutaneous tissues were anesthetized using lidocaine 1.5% and a 25-gauge needle. After this an 18- gauge Touhy epidural needle was placed into the C6-C7 interspace under fluroscopy guidance and advanced using loss of resistance to air until the epidural space was encountered. After confirmation of needle placement in the epidural space using contrast dye, a solution containing normal saline, 2 mL and Depo-Medrol 80 mg was incrementally injected into the cervical epidural space.~ The patient tolerated the procedure well with no complications. The patient was observed in the Pain Clinic and then discharged home neurologically intact. Plan and Disposition:: Patient was discharged out incident.
== END 2023-07-20 08:35 | disposition home or self-care (01) ==
PROVIDERS: PCP Internal Medicine; Visit Provider Nurse Anesthetist, Certified Registered
DX: M50.123 Cervical disc disorder at C6-C7 level with radiculopathy (principal)
CPT/HCPCS: 62321; J1040; Q9966

== ENCOUNTER → 2023-08-06 08:45 | Outpatient (POV) | payer MEDICARE, OTHER, SELFPAY ==
[2023-08-06 08:50] VITALS: BP 129/47; PULSE 74; RESP 20; BMI 26.6
--- NOTE | 2023-08-06 09:47 | EXP.PAIN.SOA ---
[facility] Pain Management SOAP Note Subjective:: This patient is a very pleasant 63-year-old female that comes our clinic today for follow-up visit after receiving cervical epidural steroid injection C6-7 level. Patient reports 80% improvement terms of her overall posterior cervical neck pain as well as left arm radicular symptoms. Patient reports today she continues having some slight discomfort in the left trapezius area. However, the radicular symptoms down the arm into the hand have subsided. She is very pleased with the results. She rates her pain today 12/04. Patient's Ty #[id number] has been reviewed and appropriate. Patient states she takes Tylenol and/or NSAIDs as needed if in fact she begins to hurt. Objective:: Patient is awake alert [place] x3. In no acute distress. Flexion-extension lumbar spine somewhat guarded secondary to pain. Deep tendon reflexes upper lower extremities normal. Motor strength upper and lower extremities normal. There is no sensory deficit. Gait is normal. Assessment:: Degenerative disc cervical spine multilevels. Cervical radiculopathy. Plan:: Patient will return to see us on a as needed basis [facility] Disclaimer: The information contained in this section may have been updated after the patient was seen, as this information can be updated by other users. Medical History Achilles tendinitis of left lower extremity Arthritis HTN (hypertension), benign Hypothyroidism Posterior tibial tendon tear, traumatic Thyroid disease Surgical History History of carpal tunnel release Family History Other Hypertension Stroke Social History Smoking Status: Never smoker alcohol intake: never substance use type: denies use current occupational status: other Travel in the last 8 weeks: None household members: spouse housing: house current occupation: self-employeed current occupational exposures/hazards: No caffeine: Yes
== END ==
PROVIDERS: Visit Provider Nurse Anesthetist, Certified Registered
DX: M50.10 Cervical disc disorder with radiculopathy, unspecified cervical region (principal)
CPT/HCPCS: 99212; G0463

== ENCOUNTER 2023-08-20 17:50 | Emergency (ER) | payer MEDICARE, OTHER, SELFPAY ==
[2023-08-20 18:00] VITALS: BP 130/89; PULSE 69; RESP 19; TEMP 36.9; O2SAT 98; BMI 26.6
[2023-08-20 18:26] VITALS: BP 125/70; BP 130/77; BP 130/89; PULSE 63; PULSE 69; PULSE 70
--- NOTE | 2023-08-20 18:28 | EXP.UTC ---
Discharge Plan Disposition Patient Disposition: Home, Self-Care Condition: Good Prescriptions Prescriptions: New meclizine 25 mg tablet 25 mg PO TID PRN (Reason: dizziness) Qty: 20 0RF No Action levothyroxine [Euthyrox] 75 mcg tablet 75 mcg PO DAILY lisinopril-hydrochlorothiazide 20-12.5 mg tablet 1 tab PO DAILY omeprazole 40 mg capsule,delayed release(DR/EC) 40 mg PO DAILY Referrals Follow up/Referrals: Kemar Gerard MD [Primary Care Provider] - See instructions Activity Restrictions/Add. Instructions Additional Instructions/Restrictions: Take meclizine as prescribed Slow and steady movements for the next couple of days, sit on the edge of the bed and let your legs dangle before standing to help prevent falling Follow up with your Family Doctor or ENT if symptoms do not improve or if you have any worsening Straight to ER for any life threatening symptoms Clinical Impressions Clinical Impression: Dizziness Instructions Patient Instructions: Vertigo, Meclizine Discharge ED Provider: Sis Burgos [facility] General Stated complaint: dizzy Mode of Arrival: Ambulatory Source of Information: Patient Limitations: No Limitations Time Seen by Provider: 08/20/23 18:28 Description of Symptoms (Recalled from Triage Doc. by RN): PATIENT C/O DIZZINESS WITH MOVEMENT THAT STARTED THIS AFTERNOON HEENT Symptoms (Recalled from RN notes): Yes Resp Symptoms (Recalled from RN notes): No Skin Symptoms (Recalled from RN notes): No MS Symptoms (Recalled from RN notes): No Functional Status (Recalled from RN notes): WNL History of Present Illness Provider Complaint: Patient states that she has a hx of Vertigo and earlier today she was getting up from a nap and felt like everything started spinning and she was dizzy States that feels like it did when she had Vertigo before States that it got a little better and then she bent over and it started again so she came in to get something to help with it like she did last time Denies CP denies SOA Denies headache Related Data Home Medications Medication Instructions Recorded Confirmed omeprazole 40 mg capsule,delayed 40 mg PO DAILY GERD 06/30/19 08/20/23 release levothyroxine 75 mcg tablet 75 mcg PO DAILY Supplement 04/29/21 08/20/23 (Euthyrox) lisinopril 20 1 tab PO DAILY Hypertension 04/29/21 08/20/23 mg-hydrochlorothiazide 12.5 mg tablet Previous Rx's Medication Instructions Recorded meclizine 25 mg tablet 25 mg PO TID PRN dizziness #20 tabs 08/20/23 Allergies Allergy/AdvReac Type Severity Reaction Status Date / Time No Known Allergies Allergy Verified 07/20/23 08:17 Worker's Comp Is this a Worker's Comp case?: No [facility] Disclaimer: The information contained in this section may have been updated after the patient was seen, as this information can be updated by other users. Medical History Achilles tendinitis of left lower extremity Arthritis HTN (hypertension), benign Hypothyroidism Posterior tibial tendon tear, traumatic Thyroid disease Surgical History History of carpal tunnel release Family History Other Hypertension Stroke Social History Smoking Status: Never smoker alcohol intake: never substance use type: denies use current occupational status: other Travel in the last 8 weeks: None household members: spouse housing: house current occupation: self-employeed current occupational exposures/hazards: No caffeine: Yes ROS Obtained: Yes All systems reviewed & no additional complaints except as documented and Yes Systems reviewed as appropriate & no additional complaints except as documented Constitutional Constitutional: Reports system reviewed and no additio
[2023-08-20 18:48] VITALS: BP 130/89; PULSE 69; RESP 19; TEMP 36.9; O2SAT 98
== END 2023-08-20 18:51 | disposition home or self-care (01) ==
PROVIDERS: Emergency Provider Nurse Practitioner; PCP Internal Medicine
DX: R42 Dizziness and giddiness (principal); I10 Essential (primary) hypertension; E03.9 Hypothyroidism, unspecified
CPT/HCPCS: 99204; 99212; G0463

== ENCOUNTER → 2023-10-05 12:39 | Outpatient (CLI) | payer MEDICARE, OTHER, SELFPAY ==
[2023-10-05 13:37] LABS: Basophils % 0.6 % (0.1-2.0); Eosinophils # 0.4 K/mm3 (0.0-0.4); Eosinophils % 5.4 % (0.1-12.0); Hematocrit 37.9 % (37.0-47.0); Hemoglobin 13.1 g/dL (12.2-16.2); Lymphocytes # 1.9 K/mm3 (0.7-4.5); Mean Corpuscular HGB Conc 34.5 g/dL (31.8-35.4); Mean Corpuscular Hemoglobin 31.1 pg (27.0-31.2); Mean Corpuscular Volume 90.2 fl (81-99); Mean Platelet Volume 8.2 fl (7.4-10.4); Monocytes # 0.5 K/mm3 (0.1-1.0); Neutrophils # 4.6 K/mm3 (1.8-7.8); Neutrophils % 61.9 % (37.0-80.0); Platelet Count 329 K/mm3 (142-424); Red Cell Distribution Width 13.5 % (11.5-17.5); White Blood Count 7.4 K/mm3 (4.8-10.8)
[2023-10-05 14:30] LABS: Chloride 103 mmol/L (98-107); Sodium 137 mmol/L (136-145)
[2023-10-05 14:32] LABS: Amylase 91 U/L (30-110); Blood Urea Nitrogen 23 mg/dl (7-17); Estimated Glomerular Filt Rate 41 ml/min (>60); GFR (African American) 50 ML/MIN (>60)
[2023-10-05 14:33] LABS: Alanine Aminotransferase 31 U/L (12-78); Albumin Level 4.4 g/dl (3.5-5.0); Albumin/Globulin Ratio 1.4 (1.1-1.8); Alkaline Phosphatase 89 U/L (38-126); Aspartate Amino Transferase 35 U/L (14-36); Bilirubin,Total 0.7 mg/dl (0.2-1.3); Calcium 8.6 mg/dl (8.4-10.2); Carbon Dioxide 29 mmol/L (22.0-30.0); Cholesterol 218 mg/dl (140-200); Globulin 3.1 g/dL (1.3-3.2); Glucose 82 mg/dl (74-100); Total Protein,Serum 7.5 g/dl (6.3-8.2); Triglycerides 174 mg/dl (30-150); VLDL Cholesterol 35 mg/dL (0-40)
[2023-10-05 14:34] LABS: Chol/HDL Ratio 5.1 (1-3.5); HDL Cholesterol 43 mg/dl (40-60)
[2023-10-05 15:04] LABS: Thyroid Stimulating Hormone 1.91 uIU/mL (0.465-4.68)
== END ==
PROVIDERS: PCP Internal Medicine; Visit Provider Internal Medicine
DX: I10 Essential (primary) hypertension (principal); E03.9 Hypothyroidism, unspecified; E78.5 Hyperlipidemia, unspecified; R10.12 Left upper quadrant pain
CPT/HCPCS: 80053; 80061; 82150; 84443; 85025

== ENCOUNTER → 2023-10-20 08:39 | Outpatient (CLI) | payer MEDICARE, OTHER, SELFPAY ==
--- NOTE | 2023-10-20 08:47 | FL_ITS ---
FINAL REPORT CLINICAL HISTORY: ABD PAIN,EPIGASTRIC PAIN FINDINGS: UPPER GI EXAM HISTORY: Epigastric pain. PROCEDURE: The patient ingested barium. Effervescent crystals were also administered. Spot and overhead films were obtained. Fluoro time: 2 minutes 27seconds DAP: 1943.73 uGy.m2 18 images were obtained. FINDINGS: The esophagus is normal. There is a small sliding type hiatal hernia. There is no gastroesophageal reflux. Esophageal dysmotility was demonstrated during the exam. The rugal fold pattern of the stomach is normal. There are 2 duodenal diverticula. IMPRESSION: Small sliding-type hiatal hernia. Esophageal dysmotility. Duodenal diverticula. Films reviewed , interpreted and dictated by Dr. Benton. Transcribed by Dieter Phoenix PA-C. Reviewed, Interpreted and Dictated by Alo Benton MD Transcribed by DARYN Jackson Authenticated and [facility]
--- NOTE | 2023-10-20 08:47 | US_ITS ---
FINAL REPORT TECHNIQUE: Ultrasound images of the abdomen were obtained. CLINICAL HISTORY: ABD PAIN COMPARISON: None FINDINGS: ABDOMINAL ULTRASOUND COMPLETE: The liver is normal in size and echogenicity without focal abnormality. The gallbladder is absent. The common duct is normal. The right kidney measures 9.9 cm in length and is normal in echogenicity without hydronephrosis. The left kidney measures 10.1 cm in length without hydronephrosis. There is a small cyst in the left kidney. The spleen is unremarkable. The pancreas is obscured by overlying bowel gas. The visualized portions of the aorta and the IVC are normal. The vena cava is unremarkable. IMPRESSION: Small left kidney cyst. Reviewed, Interpreted and Dictated by Alo Benton MD Transcribed by Lotus Roth Authenticated and [facility]
[2023-10-20] MEDS: BARIUM SULFATE(LIQUID E-Z-PAQUE);355ML BOTTLE 355 ML PO (10:21)
[2023-10-20] MEDS: BARIUM SULFATE (E-Z-HD 340GM);135ML BOTTLE 135 ML PO (10:21)
[2023-10-20] MEDS: E-Z-GASII EFFERVESCENT GRANULES;1PK 1 EACH PO (10:21)
== END ==
LOC: RAD 08:39
PROVIDERS: PCP Internal Medicine; Visit Provider Internal Medicine
DX: R10.13 Epigastric pain (principal)
CPT/HCPCS: 74246; 76700

== ENCOUNTER → 2023-11-03 08:14 | Outpatient (POV) | payer MEDICARE, OTHER, SELFPAY ==
[2023-11-03 08:32] VITALS: BP 131/71; PULSE 76; RESP 18; O2SAT 96; BMI 26.6
--- NOTE | 2023-11-03 08:35 | EXP.PAIN.SOA ---
[facility] Pain Management SOAP Note Subjective:: Patient is a pleasant 63-year-old female who presents today for follow-up. We are currently treating the patient for degenerative disc disease of cervical spine with cervical radiculopathy symptoms. Today she rates her pain a 8 out of 10. Patient denies any new trauma or injury. She does state that she is back to her baseline of her neck pain with radiating symptoms into her upper extremities. This is an aching, throbbing sensation with burning and tingling into her extremities. Patient does state the pain interferes with her ability to perform activities of daily living such as cooking and cleaning. Patient previously had her last cervical epidural of C6-C7 back in July 20 that did provide 80% relief lasting several months. Patient is interested in repeating this injection. Her Ty has been reviewed and is appropriate. Review of Systems: General: No recent weight changes, no fever, no sleep disturbances Respiratory: No cough, no shortness of air, no recurring pulmonary infections Cardiovascular/peripheral vascular: No chest pain, no palpitations, no edema, no shortness of breath Gastrointestinal: No new onset incontinence, normal bowel movements reported Genitourinary: No new onset incontinence Musculoskeletal: Neck pain, bilateral upper arm pain Psychiatric: [Normal mood/affect] Neurological: [Denies weakness in extremities], [denies balance issues] Objective:: Physical Exam: General: Alert and oriented x3, no acute distress, pleasant and cooperative Lungs: Respirations even and unlabored, symmetrical chest expansion Eyes: PERRL Musculoskeletal: Flexion and extension of cervical [spine] somewhat guarded secondary to pain, [antalgic gait noted] Neurological: Speech clear, no gross sensory deficit Assessment:: Degenerative disc disease of cervical spine with cervical radiculopathy symptoms Plan:: Patient is experiencing worsening pain in her neck and upper extremities with limited range of motion of her cervical spine. I have discussed with the patient that she may benefit from a repeat cervical epidural steroid injection. Risk and benefits were discussed with the patient and she would like to proceed forward with this plan of care. Patient denies any new blood thinners or changes in her pain sensations. We will schedule the patient for a NORA C6-C7. All epidurals are done under fluoroscopic guidance to confirm placement. Patient has been counseled to contact our office with any questions or concerns before their next appointment date. This note has been dictated using voice recognition software and may contain errors or omissions. Dr. Little has read this note and agrees with this plan of care. [facility] Disclaimer: The information contained in this section may have been updated after the patient was seen, as this information can be updated by other users. Medical History (Updated 09/08/23 @ 08:53 by Michelle Medina APRN) Achilles tendinitis of left lower extremity TAMMIE (acute kidney injury) Arch pain of left foot Arthritis Cervical radiculopathy Cervical spondylosis Degenerative disc disease, cervical Difficulty walking Dizziness Gastroenteritis HTN (hypertension), benign Hypothyroidism Leukocytosis Ligamentous inflammation Nontraumatic tear of plantar fascia Osteochondral defect of talus Plantar fasciitis of left foot Posterior tibial tendinitis of left lower extremity Posterior tibial tendon tear, traumatic Tarsal tunnel syndrome of left side Thyroid disease Surgical History History of carpal tunnel release Family History Other Hypertension Stroke Social History Smoking Status: Never smoker alcohol intake: never substance use type: denies use current occupational status: employed Travel in the last 8 weeks: None household members: spouse housing: house current occupation: self-employeed current occupational exposures/hazards: No caffeine: Yes
== END ==
LOC: SC.PAIN 08:15
PROVIDERS: PCP Internal Medicine; Visit Provider Nurse Practitioner Family
DX: M50.123 Cervical disc disorder at C6-C7 level with radiculopathy (principal)
CPT/HCPCS: 99212; G0463

== ENCOUNTER 2023-11-16 08:53 | Day surgery (SDC) | payer MEDICARE, OTHER, SELFPAY ==
[2023-11-16 09:00] VITALS: BP 132/79; PULSE 69; RESP 16; TEMP 36.4; O2SAT 100; BMI 26.6
[2023-11-16] MEDS: methylPREDNISolone ACETATE 80MG/ML VIAL 80 MG (09:13)
[2023-11-16 09:14] VITALS: BP 148/85; PULSE 81; RESP 18; O2SAT 98
[2023-11-16 09:15] VITALS: BP 148/85; PULSE 81; RESP 18; O2SAT 98
[2023-11-16 09:18] VITALS: BP 145/74; PULSE 68; RESP 18; O2SAT 100
[2023-11-16] MEDS: IOPAMIDOL-200 (41%);10ML VIAL 10 ML IV (09:19)
--- NOTE | 2023-11-16 09:20 | P.PCN_ITS ---
Procedure Date: 11/16/23 Time: 09:10 Anesthesiologist:: Lang Watson CRNA Complications:: None Pre-procedure Diagnosis:: Degenerative disc cervical spine multilevels. Cervical radiculopathy. Post-procedure Diagnosis:: Same. Indications for Procedure:: Patient is a very pleasant 63-year-old female comes our clinic today for cervical epidural injection. Patient has had significant improvement terms of her overall posterior cervical neck pain as well as bilateral arm radicular symptoms with previous injections. She rates her pain today /10. Procedure Details:: Procedure:Cervical epidural steroid injection Informed consent was obtained and the risks and benefits of the procedure were explained to the patient. The patient was taken to the procedure room and noninvasive monitors placed, including noninvasive blood pressure cuff and pulse oximeter. The neck was prepped using Chloraprep as a cleansing solution. The C6- C7 interspace was viewed using fluroscopy. The skin and subcutaneous tissues were anesthetized using lidocaine 1.5% and a 25-gauge needle. After this an 18- gauge Touhy epidural needle was placed into the C6-C7 interspace under fluroscopy guidance and advanced using loss of resistance to air until the epidural space was encountered. After confirmation of needle placement in the epidural space using contrast dye, a solution containing normal saline, 2 mL and Depo-Medrol 80 mg was incrementally injected into the cervical epidural space.~ The patient tolerated the procedure well with no complications. The patient was observed in the Pain Clinic and then discharged home neurologically intact. Plan and Disposition:: Patient was discharged without incident.
== END 2023-11-16 09:18 | disposition home or self-care (01) ==
PROVIDERS: PCP Internal Medicine; Visit Provider Nurse Anesthetist, Certified Registered
DX: M50.123 Cervical disc disorder at C6-C7 level with radiculopathy (principal)
CPT/HCPCS: 62321; J1040; Q9966

== ENCOUNTER 2023-11-24 07:54 | Day surgery (SDC) | payer MEDICARE, OTHER, SELFPAY ==
[2023-11-22 12:30] VITALS: BMI 28.1
[2023-11-24 08:07] VITALS: BP 148/79; PULSE 67; RESP 17; TEMP 36.9; O2SAT 100
--- NOTE | 2023-11-24 08:29 | P.PNANES_ITS ---
[facility] Disclaimer: The information contained in this section may have been updated after the patient was seen, as this information can be updated by other users. Medical History Achilles tendinitis of left lower extremity TAMMIE (acute kidney injury) Arch pain of left foot Arthritis Cervical radiculopathy Cervical spondylosis Degenerative disc disease, cervical Difficulty walking Dizziness Gastroenteritis HTN (hypertension), benign Hypothyroidism Leukocytosis Ligamentous inflammation Nontraumatic tear of plantar fascia Osteochondral defect of talus Plantar fasciitis of left foot Posterior tibial tendinitis of left lower extremity Posterior tibial tendon tear, traumatic Tarsal tunnel syndrome of left side Thyroid disease Surgical History History of back surgery History of carpal tunnel release History of foot surgery History of laparoscopic cholecystectomy History of rotator cuff surgery Family History Other Hypertension Stroke Social History Smoking Status: Never smoker alcohol intake: never substance use type: denies use current occupational status: employed Travel in the last 8 weeks: None household members: spouse housing: house current occupation: self-employeed current occupational exposures/hazards: No caffeine: No [facility] Anesthesia Checklist Patient Identification Patient Identification: Verbal (Name & ) Structural Data Admitted From: Home Planned Operative Procedure/s: egd Consent for Planned Operative Procedure(s) Verified: Yes NPO Status Verified Time NPO: 00:00 Additional verifications Anesthesia Reactions: No Hx Blood Transfusions: No Blood Transfusion Reaction: No Airway Assessment Mallampati Score:: Class II C-Spine Mobility Assessed: Yes TMJ Mobility Assessed: Yes Dentition: Good Dentition Neurological Assessment Level of Consciousness: Awake, Alert and Appropriate Anesthesia Plan Anesthesia Risk discussed: Yes Anesthesia Plan: Verified ASA Class: II Anesthesia Type: MAC
[2023-11-24 08:54] VITALS: O2SAT 100
--- NOTE | 2023-11-24 09:08 | [facility].SCOPE ---
Procedure: Date: 11/24/23 Patient Date of :: 1960 Procedure Performed:: EGD Indications:: Abdominal pain Performing Provider:: Donnie Smallwood MD Referring Provider:: Kemar Gerard MD Sedation:: See RN records Procedure:: The gastroscope was gently passed through the incisoral orifice into the oral cavity and under direct visualization the esophagus was intubated. The endoscope was passed down the esophagus, through the stomach, and into the duodenum. Color, texture, mucosa, and anatomy of the esophagus, stomach, and duodenum were carefully examined with the scope. Findings:: The esophagus appeared normal. The Z-line was measured at 36 cm. There was diffuse gastritis throughout the stomach characterized by erythema. There were scattered, small fundic gland polyps less than 5 mm in size in the fundus and body of the stomach. Biopsies were obtained for histology. 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 There was also a small duodenal diverticulum seen. Recommendations:: Await pathology results Continue omeprazole as directed Continue Carafate as directed (patient reports improvement in symptom with carafate) Follow-up with referring provider Complications:: None Estimated blood obtained (mL): 0 Colonoscopy Component Colonoscopy Component Was a colonoscopy performed during today's procedure?: No
[2023-11-24 09:10] VITALS: BP 103/54; PULSE 77; RESP 18; TEMP 36.9; O2SAT 95
[2023-11-24 09:20] VITALS: BP 96/55; PULSE 70; RESP 18; O2SAT 98
[2023-11-24 09:45] VITALS: BP 98/71; PULSE 68; RESP 18; O2SAT 100
== END 2023-11-24 09:49 | disposition home or self-care (01) ==
PROVIDERS: PCP Internal Medicine; Visit Provider Internal Medicine
PROC: 0DJ08ZZ Inspection of Upper Intestinal Tract, Via Natural or Artificial Opening Endoscopic (ICD-10-PCS; CPT 43235; principal; 2023-11-24 09:00)
DX: R10.9 Unspecified abdominal pain (principal); K31.7 Polyp of stomach and duodenum; K29.70 Gastritis, unspecified, without bleeding
CPT/HCPCS: 43239; 88305

== ENCOUNTER → 2023-12-09 08:20 | Outpatient (POV) | payer MEDICARE, OTHER, SELFPAY ==
[2023-12-09 08:31] VITALS: BP 118/66; PULSE 72; RESP 18; O2SAT 99; BMI 26.6
--- NOTE | 2023-12-09 08:37 | A.OFFVIS_ITS ---
[facility] Pain Management SOAP Note Subjective:: Patient is a pleasant 63-year-old female who presents today for follow-up of cervical epidural steroid injection C6-C7 on 11/16/2023. We are currently treating the patient for degenerative disc disease of cervical spine with cervical radiculopathy symptoms. Today she rates her pain a 4 out of 10. 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 She does state that she continues to have soreness in these areas however is hoping that it will back down after a little bit more time. Patient does get these injections every few months with significant improvement that generally last. Patient denies any heart or kidney issues however does have stomach problems so she does not use NSAIDs. Patient states she does typically get some improvement with Tylenol. Her Ty has been reviewed and is appropriate. Review of Systems: General: No recent weight changes, no fever, no sleep disturbances Respiratory: No cough, no shortness of air, no recurring pulmonary infections Cardiovascular/peripheral vascular: No chest pain, no palpitations, no edema, no shortness of breath Gastrointestinal: No new onset incontinence, normal bowel movements reported Genitourinary: No new onset incontinence Musculoskeletal: Neck pain, bilateral upper arm pain Psychiatric: [Normal mood/affect] Neurological: [Denies weakness in extremities], [denies balance issues] Objective:: Physical Exam: General: Alert and oriented x3, no acute distress, pleasant and cooperative Lungs: Respirations even and unlabored, symmetrical chest expansion Eyes: PERRL Musculoskeletal: Flexion and extension of cervical [spine] somewhat guarded secondary to pain, [antalgic gait noted] Neurological: Speech clear, no gross sensory deficit Assessment:: Degenerative disc disease of cervical spine with cervical radiculopathy symptoms Plan:: Patient is currently experiencing a small flareup of pain in her neck and upper arms related to recent work. Prior to this patient did have approximately 75% relief following her injection. I have discussed with the patient that hopefully this will go back down to where she is getting significant improvement again. I have counseled the patient continue her Tylenol and her compounded cream or Biofreeze. Patient will return to clinic in 1 month for reevaluation of symptoms and plan of care. Patient has been instructed to contact the clinic with any concerns before the next appointment. Dr. Little has reviewed this note and agrees with this plan of care. This note was dictated using voice recognition software and make contain errors or omissions. [facility] Disclaimer: The information contained in this section may have been updated after the patient was seen, as this information can be updated by other users. Medical History Achilles tendinitis of left lower extremity TAMMIE (acute kidney injury) Arch pain of left foot Arthritis Cervical radiculopathy Cervical spondylosis Degenerative disc disease, cervical Difficulty walking Dizziness Gastroenteritis HTN (hypertension), benign Hypothyroidism Leukocytosis Ligamentous inflammation Nontraumatic tear of plantar fascia Osteochondral defect of talus Plantar fasciitis of left foot Posterior tibial tendinitis of left lower extremity Posterior tibial tendon tear, traumatic Tarsal tunnel syndrome of left side Thyroid disease Surgical History History of back surgery History of carpal tunnel release History of foot surgery History of laparoscopic cholecystectomy History of rotator cuff surgery Family History Other Hypertension Stroke Social History Smoking Status: Never smoker alcohol intake: never substance use type: denies use current occupational status: employed Travel in the last 8 weeks: None household members: spouse housing: house current occupation: self-employeed current occupational exposures/hazards: No caffeine: No
== END ==
PROVIDERS: PCP Internal Medicine; Visit Provider Nurse Practitioner Family
DX: M50.123 Cervical disc disorder at C6-C7 level with radiculopathy (principal)
CPT/HCPCS: 99212; G0463

== ENCOUNTER 2024-01-06 08:21 | Outpatient (POV) | payer MEDICARE, OTHER, SELFPAY ==
--- NOTE | 2024-01-06 08:46 | A.OFFVIS_ITS ---
[facility] Pain Management SOAP Note Subjective:: Patient is a pleasant 63-year-old female who presents today for follow-up. We are currently treating the patient for degenerative disc disease of cervical spine with cervical radiculopathy symptoms. Today she rates her pain a 8 out of 10. She states from our last visit she still is experiencing significant pain in her neck and upper extremities with some limited range of motion. 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 She states that this has continued. She describes it is an aching, throbbing sensation with burning and tingling into her extremities. Patient denies get significant relief with cervical epidurals with her last 1 providing 75% relief. She is interested in repeating this injection as her pain does interfere with her ability to perform activities of daily living such as cooking and cleaning.Her Ty has been reviewed and is appropriate. Review of Systems: General: No recent weight changes, no fever, no sleep disturbances Respiratory: No cough, no shortness of air, no recurring pulmonary infections Cardiovascular/peripheral vascular: No chest pain, no palpitations, no edema, no shortness of breath Gastrointestinal: No new onset incontinence, normal bowel movements reported Genitourinary: No new onset incontinence Musculoskeletal: Neck pain, bilateral upper arm pain Psychiatric: [Normal mood/affect] Neurological: [Denies weakness in extremities], [denies balance issues] Objective:: Physical Exam: General: Alert and oriented x3, no acute distress, pleasant and cooperative Lungs: Respirations even and unlabored, symmetrical chest expansion Eyes: PERRL Musculoskeletal: Flexion and extension of cervical [spine] somewhat guarded secondary to pain, [antalgic gait noted] positive Spurling's test Neurological: Speech clear, no gross sensory deficit Assessment:: Degenerative disc disease of cervical spine with cervical radiculopathy symptoms Plan:: Patient is experiencing worsening pain in her neck and upper extremities. Patient had limited range of motion of her cervical spine during today's visit and a positive Spurling's test. I have discussed with patient that she may benefit from a cervical epidural steroid injection. Risk and benefits were discussed with patient and she would like to proceed forward with this plan of care. Patient is not on any blood thinners. I also discussed with the patient that she may benefit from a low-dose anti-inflammatory. Risk and benefits were discussed and she acknowledges understanding of this and would like to proceed forward. Patient does not have any heart or kidney issues however has had upset stomach related to NSAID use. I have counseled the patient to discontinue all other NSAIDs while taking this medication and to take it with food to help minimize GI symptoms. Patient will be sent in meloxicam 7.5 mg daily with a 14- day supply. Patient will be scheduled for a NORA C6-C7 under fluoroscopy. Patient has been instructed to contact the clinic with any concerns before the next appointment. Dr. Little has reviewed this note and agrees with this plan of care. This note was dictated using voice recognition software and make contain errors or omissions. [facility] Disclaimer: The information contained in this section may have been updated after the patient was seen, as this information can be updated by other users. Medical History Dizziness Tarsal tunnel syndrome of left side Osteochondral defect of talus Nontraumatic tear of plantar fascia Arch pain of left foot Difficulty walking Posterior tibial tendon tear, traumatic Achilles tendinitis of left lower extremity Ligamentous inflammation Plantar fasciitis of left foot Thyroid disease Hypothyroidism Arthritis HTN (hypertension), benign Cervical spondylosis Cervical radiculopathy TAMMIE (acute kidney injury) Gastroenteritis Leukocytosis Posterior tibial tendinitis of left lower extremity Degenerative disc disease, cervical Surgical History History of foot surgery History of rotator cuff surgery History of laparoscopic cholecystectomy History of back surgery History of carpal tunnel release Family History Other Hypertension Stroke Social History Smoking Status: Never smoker alcohol intake: never substance use type: denies use current occupational status: employed Travel in the last 8 weeks: None household members: spouse housing: house current occupation: self-employeed current occupational exposures/hazards: No caffeine: No
[2024-01-06 08:48] VITALS: BP 116/69; PULSE 75; RESP 18; O2SAT 99; BMI 26.3
== END 2024-01-06 23:59 | disposition home or self-care (01) ==
PROVIDERS: PCP Internal Medicine; Visit Provider Nurse Practitioner Family
DX: M50.123 Cervical disc disorder at C6-C7 level with radiculopathy (principal)
CPT/HCPCS: 99212; G0463

== ENCOUNTER 2024-02-15 07:50 | Day surgery (SDC) | payer MEDICARE, OTHER, SELFPAY ==
[2024-02-15 08:30] VITALS: BP 142/83; PULSE 72; RESP 18; O2SAT 98
[2024-02-15] MEDS: methylPREDNISolone ACETATE 80MG/ML VIAL 80 MG (08:31)
[2024-02-15 08:32] VITALS: BP 136/70; PULSE 65; RESP 16; TEMP 36.1; O2SAT 98; BMI 25.7
[2024-02-15 08:38] VITALS: BP 132/76; PULSE 60; RESP 16; O2SAT 98
--- NOTE | 2024-02-15 08:41 | P.PCN_ITS ---
Procedure Date: 02/15/24 Time: 08:20 Anesthesiologist:: Lang Watson CRNA Complications:: None Pre-procedure Diagnosis:: Degenerative disc cervical spine multilevels. Cervical radiculopathy Post-procedure Diagnosis:: Same. Indications for Procedure:: Patient is a very pleasant 64-year-old female comes our clinic today for a repeat cervical epidural steroid injection. Patient has had significant improvement terms of her overall posterior cervical neck pain as well as bilateral arm radicular symptoms with previous injections. She rates her pain today 5/10. Procedure Details:: Procedure:Cervical epidural steroid injection Informed consent was obtained and the risks and benefits of the procedure were explained to the patient. The patient was taken to the procedure room and noninvasive monitors placed, including noninvasive blood pressure cuff and pulse oximeter. The neck was prepped using Chloraprep as a cleansing solution. The C6- C7 interspace was viewed using fluroscopy. The skin and subcutaneous tissues were anesthetized using lidocaine 1.5% and a 25-gauge needle. After this an 18- gauge Touhy epidural needle was placed into the C6-C7 interspace under fluroscopy guidance and advanced using loss of resistance to air until the epidural space was encountered. After confirmation of needle placement in the epidural space using contrast dye, a solution containing normal saline, 2 mL and Depo-Medrol 80 mg was incrementally injected into the cervical epidural space.~ The patient tolerated the procedure well with no complications. The patient was observed in the Pain Clinic and then discharged home neurologically intact. Plan and Disposition:: Patient was discharged without incident.
[2024-02-15] MEDS: IOPAMIDOL-200 (41%);10ML VIAL 10 ML IV (08:51)
== END 2024-02-15 08:38 | disposition home or self-care (01) ==
PROVIDERS: PCP Internal Medicine; Visit Provider Nurse Anesthetist, Certified Registered
DX: M50.123 Cervical disc disorder at C6-C7 level with radiculopathy (principal)
CPT/HCPCS: 62321; J1010; Q9966

== ENCOUNTER 2024-02-28 08:31 | Outpatient (POV) | payer MEDICARE, OTHER, SELFPAY ==
[2024-02-28 08:47] VITALS: BP 130/77; PULSE 73; RESP 18; TEMP 36.7; O2SAT 98; BMI 25.7
--- NOTE | 2024-02-28 08:56 | A.OFFVIS_ITS ---
[facility] Pain Management SOAP Note Subjective:: Patient is a pleasant 64-year-old female who presents today for follow-up of cervical epidural steroid injection C6-C7 on 02/15/2024. Today she rates her pain a 4 out of 10 however she states the pain will get worse as the day goes on. Patient states that she did get significant relief with this however not as much as her previous injection of upwards of 75% relief. Patient states that she may have gotten more around 50% and feels like it is starting to wear off. Patient states that when the injection was significantly helping she did have improved function and decreased pain symptoms. Today she states her pain is all in her neck and radiating into her upper extremities with numbness and tingling. Patient does state the pain interferes with her ability to perform activities of daily living such as cooking and cleaning. 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 Patient is interested in repeating this injection. Patient does state that she felt like the last medication we sent in of meloxicam 7.5 mg daily did provide significant improvement. She is asking if we can increase it at all. Her Yt has been reviewed and is appropriate. Review of Systems: General: No recent weight changes, no fever, no sleep disturbances Respiratory: No cough, no shortness of air, no recurring pulmonary infections Cardiovascular/peripheral vascular: No chest pain, no palpitations, no edema, no shortness of breath Gastrointestinal: No new onset incontinence, normal bowel movements reported Genitourinary: No new onset incontinence Musculoskeletal: Neck pain, upper arm pain Psychiatric: [Normal mood/affect] Neurological: [Denies weakness in extremities], [denies balance issues] Objective:: Physical Exam: General: Alert and oriented x3, no acute distress, pleasant and cooperative Lungs: Respirations even and unlabored, symmetrical chest expansion Eyes: PERRL Musculoskeletal: Flexion and extension of cervical [spine] somewhat guarded secondary to pain, [antalgic gait noted] positive Spurling's test Neurological: Speech clear, no gross sensory deficit Assessment:: Degenerative disc disease of cervical spine with cervical radiculopathy symptoms, chronic pain syndrome Plan:: Patient is experiencing significant pain in her neck with radiating numbness and tingling into her upper extremities. Patient did have limited range of motion of her cervical spine with a positive Spurling's test. Patient does typically get on average approximately 75% relief with her cervical epidurals however her most recent only provided 50% lasting 2 weeks. I have discussed with patient that she may benefit from repeat cervical epidural steroid injection. Risk and benefits were discussed with the patient and she would like to proceed forward with this plan of care. Patient is not on any blood thinners. I will also increase her meloxicam to 15 mg daily and provide a 1 month supply of this medication. patient has been counseled to discontinue all other NSAIDs while taking this medication and to take it with food to minimize GI upset. Patient acknowledges understanding and agrees with this plan of care. Patient denies any heart or kidney issues. Patient will be scheduled for a NORA C6-C7 under fluoroscopy. Patient has tried and failed conservative treatment. Patient has been instructed to contact the clinic with any concerns before the next appointment. Dr. Little has reviewed this note and agrees with this plan of care. This note was dictated using voice recognition software and make contain errors or omissions. [facility] Disclaimer: The information contained in this section may have been updated after the patient was seen, as this information can be updated by other users. Medical History Dizziness Tarsal tunnel syndrome of left side Osteochondral defect of talus Nontraumatic tear of plantar fascia Arch pain of left foot Difficulty walking Posterior tibial tendon tear, traumatic Achilles tendinitis of left lower extremity Ligamentous inflammation Plantar fasciitis of left foot Thyroid disease Hypothyroidism Arthritis HTN (hypertension), benign Cervical spondylosis Cervical radiculopathy TAMMIE (acute kidney injury) Gastroenteritis Leukocytosis Posterior tibial tendinitis of left lower extremity Degenerative disc disease, cervical Surgical History History of foot surgery History of rotator cuff surgery History of laparoscopic cholecystectomy History of back surgery History of carpal tunnel release Family History Other Hypertension Stroke Social History Smoking Status: Never smoker alcohol intake: never substance use type: denies use current occupational status: employed Travel in the last 8 weeks: None household members: spouse housing: house current occupation: self-employeed current occupational exposures/hazards: No caffeine: No
== END 2024-02-28 23:59 | disposition home or self-care (01) ==
PROVIDERS: PCP Internal Medicine; Visit Provider Nurse Practitioner Family
DX: M50.123 Cervical disc disorder at C6-C7 level with radiculopathy (principal); G89.4 Chronic pain syndrome
CPT/HCPCS: 99212; G0463

== ENCOUNTER 2024-04-11 07:56 | Day surgery (SDC) | payer MEDICARE, OTHER, SELFPAY ==
[2024-04-11 08:11] VITALS: BP 144/71; PULSE 66; RESP 18; TEMP 36.6; O2SAT 100; BMI 25.7
[2024-04-11] MEDS: methylPREDNISolone ACETATE 80MG/ML VIAL 80 MG (08:32)
[2024-04-11 08:33] VITALS: BP 149/80; PULSE 68; RESP 18; O2SAT 99
[2024-04-11 08:34] VITALS: BP 149/80; PULSE 74; RESP 18; O2SAT 99
[2024-04-11] MEDS: IOPAMIDOL-200 (41%);10ML VIAL 10 ML IV (08:38)
--- NOTE | 2024-04-11 08:38 | P.PCN_ITS ---
Procedure Date: 04/11/24 Time: 08:25 Anesthesiologist:: Lang Watson CRNA Complications:: None Pre-procedure Diagnosis:: Degenerative disc cervical spine multilevels. Cervical radiculopathy. Post-procedure Diagnosis:: Same. Indications for Procedure:: Patient is a pleasant 64-year-old female comes for repeat cervical epidural steroid injection. She has significant improvement terms of her overall posterior cervical neck pain as well as bilateral shoulder and arm radicular symptoms with previous injections at the same level. She rates her pain today 6/10. Procedure Details:: Procedure:Cervical epidural steroid injection Informed consent was obtained and the risks and benefits of the procedure were explained to the patient. The patient was taken to the procedure room and noninvasive monitors placed, including noninvasive blood pressure cuff and pulse oximeter. The neck was prepped using Chloraprep as a cleansing solution. The C6- C7 interspace was viewed using fluroscopy. The skin and subcutaneous tissues were anesthetized using lidocaine 1.5% and a 25-gauge needle. After this an 18- gauge Touhy epidural needle was placed into the C6-C7 interspace under fluroscopy guidance and advanced using loss of resistance to air until the epidural space was encountered. After confirmation of needle placement in the epidural space using contrast dye, a solution containing normal saline, 2 mL and Depo-Medrol 80 mg was incrementally injected into the cervical epidural space.~ The patient tolerated the procedure well with no complications. The patient was observed in the Pain Clinic and then discharged home neurologically intact. Plan and Disposition:: Patient was discharged without incident.
[2024-04-11 08:50] VITALS: BP 150/76; PULSE 70; RESP 18; O2SAT 98
== END 2024-04-11 08:53 | disposition home or self-care (01) ==
PROVIDERS: PCP Internal Medicine; Visit Provider Nurse Anesthetist, Certified Registered
DX: M50.123 Cervical disc disorder at C6-C7 level with radiculopathy (principal)
CPT/HCPCS: 62321; J1010; Q9966

== ENCOUNTER 2024-05-08 08:24 | Outpatient (POV) | payer MEDICARE, OTHER, SELFPAY ==
--- NOTE | 2024-05-08 09:13 | A.OFFVIS_ITS ---
[facility] Disclaimer: The information contained in this section may have been updated after the patient was seen, as this information can be updated by other users. Medical History Dizziness Tarsal tunnel syndrome of left side Osteochondral defect of talus Nontraumatic tear of plantar fascia Arch pain of left foot Difficulty walking Posterior tibial tendon tear, traumatic Achilles tendinitis of left lower extremity Ligamentous inflammation Plantar fasciitis of left foot Thyroid disease Hypothyroidism Arthritis HTN (hypertension), benign Cervical spondylosis Cervical radiculopathy TAMMIE (acute kidney injury) Gastroenteritis Leukocytosis Posterior tibial tendinitis of left lower extremity Degenerative disc disease, cervical Surgical History History of foot surgery History of rotator cuff surgery History of laparoscopic cholecystectomy History of back surgery History of carpal tunnel release Family History Other Hypertension Stroke Social History Smoking Status: Never smoker alcohol intake: never substance use type: denies use current occupational status: employed Travel in the last 8 weeks: None household members: spouse housing: house current occupation: self-employeed current occupational exposures/hazards: No caffeine: No PM Subjective & Objective Subjective Subjective:: Patient is a pleasant 64-year-old female who presents today for follow-up of cervical epidural steroid injection C6-C7 on 04/11/2024. Today she rates her pain a 4 out of 10. Patient denies any new trauma or injury. Patient does state that she had approximately 50% relief following this injection. She states that she does have pain improvement and feels overall more functional. She does state that on some days she is experiencing worsening pain but it does vary. Patient states that these injections have significantly improved her quality of life. Patient is requesting refills on her meloxicam 15 mg daily. Her Ty has been reviewed and is appropriate. Review of Systems: General: No recent weight changes, no fever, no sleep disturbances Respiratory: No cough, no shortness of air, no recurring pulmonary infections Cardiovascular/peripheral vascular: No chest pain, no palpitations, no edema, no shortness of breath Gastrointestinal: No new onset incontinence, normal bowel movements reported Genitourinary: No new onset incontinence Musculoskeletal: Neck pain Psychiatric: [Normal mood/affect] Neurological: [Denies weakness in extremities], [denies balance issues] Pain at rest (0-10 scale): 4 Objective Objective:: Physical Exam: General: Alert and oriented x3, no acute distress, pleasant and cooperative Lungs: Respirations even and unlabored, symmetrical chest expansion Eyes: PERRL Musculoskeletal: Flexion and extension of cervical [spine] somewhat guarded secondary to pain, [antalgic gait noted] Neurological: Speech clear, no gross sensory deficit Has patient had previous pain injection?: Yes Percent improvement in pain since last injection: 50% Conservative treatment options previously tried: NSAIDS Length of treatment: Longer than 6 weeks and Home exercise plan Length of treatment: Longer than 6 weeks Meds Home Medications and Allergies Home Medications Medication Instructions Recorded Confirmed Type lisinopril 20 1 tab PO DAILY Hypertension 04/29/21 04/11/24 History mg-hydrochlorothiazide 12.5 mg tablet sucralfate 1 gram tablet 1 g PO QID 11/22/23 04/11/24 History meloxicam 7.5 mg tablet 7.5 mg PO DAILY #14 tabs 01/06/24 04/11/24 Rx meloxicam 15 mg tablet 15 mg PO DAILY #30 tabs 02/28/24 04/11/24 Rx omeprazole 40 mg capsule,delayed 40 mg PO DAILY GERD #30 caps 04/04/24 04/11/24 Rx release levothyroxine 75 mcg tablet 75 mcg PO DAILY Supplement #90 tabs 04/20/24 Rx (Euthyrox) New Prescriptions to Start Prescriptions: Allergies Allergy/AdvReac Type Severity Reaction Status Date / Time No Known Allergies Allergy Verified 04/11/24 08:11 Assessment and Plan *Assessment and plan (1) Cervical radiculopathy: Status: Acute Category: Medical Code(s): M54.12 - Radiculopathy, cervical region (2) Cervical spondylosis: Status: Acute Category: Medical Code(s): M47.812 - Spondylosis without myelopathy or radiculopathy, cervical region (3) Degenerative disc disease, cervical: Status: Chronic Category: Medical Code(s): M50.30 - Other cervical disc degeneration, unspecified cervical region Plan Patient is doing well following her cervical epidural and does not require any additional injection therapy at this time. Patient will return to clinic in 2 months. I will refill the patient's meloxicam. Patient agrees with this plan of care. Patient has been instructed to contact the clinic with any concerns before the next appointment. Dr. Little has reviewed this note and agrees with this plan of care. This note was dictated using voice recognition software and make contain errors or omissions.
[2024-05-08 09:23] VITALS: BP 108/62; PULSE 96; RESP 18; O2SAT 98; BMI 25.7
== END 2024-05-08 23:59 | disposition home or self-care (01) ==
PROVIDERS: PCP Internal Medicine; Visit Provider Nurse Practitioner Family
DX: M50.10 Cervical disc disorder with radiculopathy, unspecified cervical region (principal); M47.22 Other spondylosis with radiculopathy, cervical region
CPT/HCPCS: 99212; G0463

== ENCOUNTER 2024-07-06 08:43 | Outpatient (POV) | payer MEDICARE, OTHER, SELFPAY ==
[2024-07-06 09:14] VITALS: BP 132/78; PULSE 73; RESP 18; O2SAT 98; BMI 25.7
--- NOTE | 2024-07-06 09:25 | A.OFFVIS_ITS ---
[facility] Disclaimer: The information contained in this section may have been updated after the patient was seen, as this information can be updated by other users. Medical History Dizziness Tarsal tunnel syndrome of left side Osteochondral defect of talus Nontraumatic tear of plantar fascia Arch pain of left foot Difficulty walking Posterior tibial tendon tear, traumatic Achilles tendinitis of left lower extremity Ligamentous inflammation Plantar fasciitis of left foot Thyroid disease Hypothyroidism Arthritis HTN (hypertension), benign Cervical spondylosis Cervical radiculopathy TAMMIE (acute kidney injury) Gastroenteritis Leukocytosis Posterior tibial tendinitis of left lower extremity Degenerative disc disease, cervical Surgical History History of foot surgery History of rotator cuff surgery History of laparoscopic cholecystectomy History of back surgery History of carpal tunnel release Family History Other Hypertension Stroke Social History Smoking Status: Never smoker alcohol intake: never substance use type: denies use current occupational status: employed Travel in the last 8 weeks: None household members: spouse housing: house current occupation: self-employeed current occupational exposures/hazards: No caffeine: No PM Subjective & Objective Subjective Subjective:: Patient is a pleasant 64-year-old female who presents today for 1 month follow- up. Today she rates her pain a 9 out of 10. She denies any new trauma or injury. She does state that she is just starting to experience much more severe pain throughout her neck with numbness and tingling that radiates into her upper extremities. Patient does state that her prior cervical epidural has officially worn off. Patient does typically get at least 50% improvement if not more lasting on average right at 3 months. Patient does state today that the pain is constant and does interfere with her ability perform activities of daily living such as cooking and cleaning. She is interested in getting her injection scheduled to soon as possible. Patient is also managed with meloxicam 15 mg daily. She denies any side effects from this medication. She is requesting refills today. Her Ty has been reviewed and is appropriate. Review of Systems: General: No recent weight changes, no fever, no sleep disturbances Respiratory: No cough, no shortness of air, no recurring pulmonary infections Cardiovascular/peripheral vascular: No chest pain, no palpitations, no edema, no shortness of breath Gastrointestinal: No new onset incontinence, normal bowel movements reported Genitourinary: No new onset incontinence Musculoskeletal: Neck pain, bilateral arm numbness tingling Psychiatric: [Normal mood/affect] Neurological: [Denies weakness in extremities], [denies balance issues] Pain at rest (0-10 scale): 9 Objective Objective:: Physical Exam: General: Alert and oriented x3, no acute distress, pleasant and cooperative Lungs: Respirations even and unlabored, symmetrical chest expansion Eyes: PERRL Musculoskeletal: Flexion and extension of cervical [spine] somewhat guarded secondary to pain, [antalgic gait noted] positive Spurling's test Neurological: Speech clear, no gross sensory deficit Has patient had previous pain injection?: No Conservative treatment options previously tried: Home exercise plan Length of treatment: Longer than 6 weeks Meds Home Medications and Allergies Home Medications ?Medication ?Instructions ?Recorded ?Confirmed ?Type sucralfate 1 gram tablet 1 g PO QID 11/22/23 07/06/24 History omeprazole 40 mg capsule,delayed 40 mg PO DAILY GERD #30 caps 04/04/24 07/06/24 Rx release levothyroxine 75 mcg tablet 75 mcg PO DAILY Supplement #90 tabs 04/20/24 07/06/24 Rx (Euthyrox) meloxicam 15 mg tablet 15 mg PO DAILY #30 tabs 05/08/24 07/06/24 Rx lisinopril 20 1 tab PO DAILY Hypertension #90 06/13/24 07/06/24 Rx mg-hydrochlorothiazide 12.5 mg tabs tablet New Prescriptions to Start Prescriptions: Allergies Allergy/AdvReac Type Severity Reaction Status Date / Time No Known Allergies Allergy Verified 04/11/24 08:11 Assessment and Plan *Assessment and plan (1) Cervical radiculopathy: Status: Acute Category: Medical Code(s): M54.12 - Radiculopathy, cervical region (2) Cervical spondylosis: Status: Acute Category: Medical Code(s): M47.812 - Spondylosis without myelopathy or radiculopathy, cervical region (3) Degenerative disc disease, cervical: Status: Chronic Category: Medical Code(s): M50.30 - Other cervical disc degeneration, unspecified cervical region Plan Patient is experiencing worsening pain throughout her neck and radiating into her upper extremities with numbness and tingling. Patient did have limited ran ge of motion of her cervical spine and a positive Spurling's test. Patient does get significant relief with cervical epidurals provided more than 50% improvement and lasting on average 3 months. I did go over the risk and benefits of repeat cervical epidural injection and she would like to proceed forward with this plan of care. Patient is not on any blood thinners. Patient has tried and failed conservative therapy including continued at home stretching exercise for longer than 6 weeks. We will schedule patient for cervical epidural steroid injections C6-C7 under fluoroscopy. I will also send in a 6- month supply of her meloxicam. Patient has been instructed to contact the clinic with any concerns before the next appointment. Dr. Little has reviewed this note and agrees with this plan of care. This note was dictated using voice recognition software and make contain errors or omissions. All injections are used with Lidocaine or Bupivacaine and Depo Medrol.
== END 2024-07-06 23:59 | disposition home or self-care (01) ==
PROVIDERS: PCP Internal Medicine; Visit Provider Nurse Practitioner Family
DX: M47.22 Other spondylosis with radiculopathy, cervical region (principal); M50.10 Cervical disc disorder with radiculopathy, unspecified cervical region; Z73.89 Other problems related to life management difficulty
CPT/HCPCS: 99212; G0463

== ENCOUNTER 2024-07-18 09:13 | Day surgery (SDC) | payer MEDICARE, OTHER, SELFPAY ==
[2024-07-18 09:33] VITALS: BP 137/63; PULSE 66; RESP 16; TEMP 36.5; O2SAT 97; BMI 25.7
[2024-07-18] MEDS: IOPAMIDOL-200 (41%);10ML VIAL 10 ML IV (09:40)
[2024-07-18] MEDS: methylPREDNISolone ACETATE 80MG/ML VIAL 80 MG (09:40)
[2024-07-18 09:41] VITALS: BP 139/66; PULSE 70; RESP 18; O2SAT 99
[2024-07-18 09:43] VITALS: BP 139/66; PULSE 70; RESP 18; O2SAT 99
--- NOTE | 2024-07-18 09:46 | P.PCN_ITS ---
Procedure Date: 07/18/24 Time: 09:45 Anesthesiologist:: Lang Watson CRNA Complications:: None Pre-procedure Diagnosis:: Degenerative disc cervical spine multilevels. Cervical radiculopathy. Disc bulge cervical spine multiple level. Post-procedure Diagnosis:: Same. Indications for Procedure:: Patient is a very pleasant 64-year-old female who comes our clinic today for repeat cervical epidural steroid injection. Patient describes posterior cervical neck pain as constant, dull, aching. Patient also reports bilateral arm radicular symptoms at times. Patient reports significant improvement in her symptoms with previous injections in the cervical spine. She rates her pain today 6/10. Procedure Details:: Procedure:Cervical epidural steroid injection Informed consent was obtained and the risks and benefits of the procedure were e xplained to the patient. The patient was taken to the procedure room and noninvasive monitors placed, including noninvasive blood pressure cuff and pulse oximeter. The neck was prepped using Chloraprep as a cleansing solution. The C6- C7 interspace was viewed using fluroscopy. The skin and subcutaneous tissues were anesthetized using lidocaine 1.5% and a 25-gauge needle. After this an 18- gauge Touhy epidural needle was placed into the C6-C7 interspace under fluroscopy guidance and advanced using loss of resistance to air until the epidural space was encountered. After confirmation of needle placement in the epidural space using contrast dye, a solution containing normal saline, 2 mL and Depo-Medrol 80 mg was incrementally injected into the cervical epidural space.~ The patient tolerated the procedure well with no complications. The patient was observed in the Pain Clinic and then discharged home neurologically intact. Plan and Disposition:: Patient was discharged without incident.
[2024-07-18 09:48] VITALS: BP 132/75; PULSE 69; RESP 18; O2SAT 98
== END 2024-07-18 09:48 | disposition home or self-care (01) ==
PROVIDERS: PCP Internal Medicine; Visit Provider Nurse Anesthetist, Certified Registered
DX: M50.30 Other cervical disc degeneration, unspecified cervical region (principal); M54.12 Radiculopathy, cervical region
CPT/HCPCS: 62321; J1010; Q9966

== ENCOUNTER 2024-08-10 10:19 | Outpatient (POV) | payer MEDICARE, OTHER, SELFPAY ==
[2024-08-10 10:53] VITALS: BP 115/69; PULSE 70; RESP 18; O2SAT 97; BMI 25.7
--- NOTE | 2024-08-10 11:10 | A.OFFVIS_ITS ---
[facility] Disclaimer: The information contained in this section may have been updated after the patient was seen, as this information can be updated by other users. Medical History Dizziness Tarsal tunnel syndrome of left side Osteochondral defect of talus Nontraumatic tear of plantar fascia Arch pain of left foot Difficulty walking Posterior tibial tendon tear, traumatic Achilles tendinitis of left lower extremity Ligamentous inflammation Plantar fasciitis of left foot Thyroid disease Hypothyroidism Arthritis HTN (hypertension), benign Cervical spondylosis Cervical radiculopathy TAMMIE (acute kidney injury) Gastroenteritis Leukocytosis Posterior tibial tendinitis of left lower extremity Degenerative disc disease, cervical Surgical History History of foot surgery History of rotator cuff surgery History of laparoscopic cholecystectomy History of back surgery History of carpal tunnel release Family History Other Hypertension Stroke Social History Smoking Status: Never smoker alcohol intake: never substance use type: denies use current occupational status: employed Travel in the last 8 weeks: None household members: spouse housing: house current occupation: self-employeed current occupational exposures/hazards: No caffeine: No PM Subjective & Objective Subjective Subjective:: Patient is a pleasant 64-year-old female who presents today for follow-up of cervical epidural steroid injection C6-C7 on 07/18/2024. Today she rates her pain a 2 out of 10. She denies any new trauma or injury. She does state that she has had at least 50% improvement following this injection and feels like it is still helping. Patient does state however that this 1 has not done as well as some of her other ones in the past. She states that overall she has had improvement but even with certain activities she still has some worsening pain but it is definitely much more manageable now since the injection. Patient is prescribed meloxicam 15 mg daily. Patient was given a 6-month supply of this medication at her last visit in June and does not require any refills at this time. Her Ty has been reviewed and is appropriate. Review of Systems: General: No recent weight changes, no fever, no sleep disturbances Respiratory: No cough, no shortness of air, no recurring pulmonary infections Cardiovascular/peripheral vascular: No chest pain, no palpitations, no edema, no shortness of breath Gastrointestinal: No new onset incontinence, normal bowel movements reported Genitourinary: No new onset incontinence Musculoskeletal: Neck pain Psychiatric: [Normal mood/affect] Neurological: [Denies weakness in extremities], [denies balance issues] Pain at rest (0-10 scale): 2 Objective Objective:: Physical Exam: General: Alert and oriented x3, no acute distress, pleasant and cooperative Lungs: Respirations even and unlabored, symmetrical chest expansion Eyes: PERRL Musculoskeletal: Flexion and extension of cervical [spine] somewhat guarded sec ondary to pain Neurological: Speech clear, no gross sensory deficit Has patient had previous pain injection?: Yes Percent improvement in pain since last injection: 50% Conservative treatment options previously tried: Home exercise plan Length of treatment: Longer than 12 weeks Meds Home Medications and Allergies Home Medications ?Medication ?Instructions ?Recorded ?Confirmed ?Type sucralfate 1 gram tablet 1 g PO QID 11/22/23 08/10/24 History omeprazole 40 mg capsule,delayed 40 mg PO DAILY GERD #30 caps 04/04/24 08/10/24 Rx release levothyroxine 75 mcg tablet 75 mcg PO DAILY Supplement #90 tabs 04/20/24 08/10/24 Rx (Euthyrox) lisinopril 20 1 tab PO DAILY Hypertension #90 06/13/24 08/10/24 Rx mg-hydrochlorothiazide 12.5 mg tabs tablet meloxicam 15 mg tablet 15 mg PO DAILY #90 tabs 07/06/24 08/10/24 Rx New Prescriptions to Start Prescriptions: Allergies Allergy/AdvReac Type Severity Reaction Status Date / Time No Known Allergies Allergy Verified 07/18/24 09:36 Assessment and Plan *Assessment and plan (1) Cervical radiculopathy: Status: Acute Category: Medical Code(s): M54.12 - Radiculopathy, cervical region (2) Cervical spondylosis: Status: Acute Category: Medical Code(s): M47.812 - Spondylosis without myelopathy or radiculopathy, cervical region (3) Degenerative disc disease, cervical: Status: Chronic Category: Medical Code(s): M50.30 - Other cervical disc degeneration, unspecified cervical region Plan Patient has had significant improvement and does not require any additional injection therapy at this time. Patient will return to clinic in 7 weeks for reevaluation of symptoms and plan of care. Patient has been instructed to contact the clinic with any concerns before the next appointment. Dr. Little has reviewed this note and agrees with this plan of care. This note was dictated using voice recognition software and make contain errors or omissions. All injections are used with Lidocaine or Bupivacaine and Depo Medrol.
== END 2024-08-10 23:59 | disposition home or self-care (01) ==
LOC: SC.PAIN 10:21
PROVIDERS: PCP Internal Medicine; Visit Provider Nurse Practitioner Family
DX: M50.10 Cervical disc disorder with radiculopathy, unspecified cervical region (principal); M47.22 Other spondylosis with radiculopathy, cervical region
CPT/HCPCS: 99212; G0463

== ENCOUNTER 2024-09-29 12:43 | Outpatient (CLI) | payer MEDICARE, OTHER, SELFPAY ==
--- NOTE | 2024-09-29 12:45 | MM_ITS ---
PROCEDURE INFORMATION: Exam: MG Bilateral Screening 3D Mammography Exam date and time: 09/29/2024 12:53 PM Age: 64 years old Clinical indication: Screening examination TECHNIQUE: Imaging protocol: Bilateral Screening tomosynthesis and 2D mammography including computer-aided detection (CAD) when performed. COMPARISON: 1. MG [facility] SCRN MAMMO W/CAD BILAT 06/11/2020 11:20 AM 2. MG [facility] MAMMO W/CAD BILAT 03/14/2019 3:16 PM FINDINGS: MAMMOGRAPHY: Breast composition: There are scattered areas of fibroglandular density. Mass: None. Architectural distortion: None. Calcifications: No suspicious calcifications. Asymmetric density: None. Skin thickening: None. Axillary adenopathy: None. IMPRESSION: No mammographic evidence of malignancy. Annual screening is recommended unless otherwise clinically indicated. ASSESSMENT: BI-RADS Category 1: Negative.
== END 2024-09-29 23:59 | disposition home or self-care (01) ==
LOC: RAD 12:45
PROVIDERS: PCP Internal Medicine; Visit Provider Internal Medicine
DX: Z12.31 Encounter for screening mammogram for malignant neoplasm of breast (principal)
CPT/HCPCS: 77063; 77067

== ENCOUNTER 2024-10-02 10:23 | Outpatient (POV) | payer MEDICARE, OTHER, SELFPAY ==
[2024-10-02 10:47] VITALS: BP 130/73; PULSE 75; RESP 16; O2SAT 99; BMI 25.7
--- NOTE | 2024-10-02 10:50 | EXP.PAIN.SOA ---
[facility] Disclaimer: The information contained in this section may have been updated after the patient was seen, as this information can be updated by other users. Medical History Dizziness Tarsal tunnel syndrome of left side Osteochondral defect of talus Nontraumatic tear of plantar fascia Arch pain of left foot Difficulty walking Posterior tibial tendon tear, traumatic Achilles tendinitis of left lower extremity Ligamentous inflammation Plantar fasciitis of left foot Thyroid disease Hypothyroidism Arthritis HTN (hypertension), benign Cervical spondylosis Cervical radiculopathy TAMMIE (acute kidney injury) Gastroenteritis Leukocytosis Posterior tibial tendinitis of left lower extremity Degenerative disc disease, cervical Surgical History History of foot surgery History of rotator cuff surgery History of laparoscopic cholecystectomy History of back surgery History of carpal tunnel release Family History Other Hypertension Stroke Social History Smoking Status: Never smoker alcohol intake: never substance use type: denies use current occupational status: employed Travel in the last 8 weeks: None household members: spouse housing: house current occupation: self-employeed current occupational exposures/hazards: No caffeine: No PM Subjective & Objective Subjective Subjective:: Patient is a pleasant 64-year-old female who presents today for worsening neck pain. She does rate her pain a 9 out of 10. Patient denies any changes from her last appointment. She does state that she has just been experience much more increased pain there at her neck that does radiate down primarily the left side. She does describe it as an aching sensation with some numbness down into the arm. She does state that she has been living off of Biofreeze due to the worsening pain along with her meloxicam 15 mg daily. Patient does state the pain is interfering with her ability perform activities of daily living such as cooking and cleaning. Patient does also believe part of it is related to the change of weather. Patient has previously gotten cervical epidurals that do generally provide at least 50% improvement if not more than last several months. Patient's last injection was on July 18 and it did provide 50% relief however did not seem like it worked as well as other injections in the past. Her Ty has been reviewed and is appropriate. Review of Systems: General: No recent weight changes, no fever, no sleep disturbances Respiratory: No cough, no shortness of air, no recurring pulmonary infections Cardiovascular/peripheral vascular: No chest pain, no palpitations, no edema, no shortness of breath Gastrointestinal: No new onset incontinence, normal bowel movements reported Genitourinary: No new onset incontinence Musculoskeletal: Neck pain, left arm numbness Psychiatric: [Normal mood/affect] Neurological: [Denies weakness in extremities], [denies balance issues] Pain at rest (0-10 scale): 9 Objective Objective:: Physical Exam: General: Alert and oriented x3, no acute distress, pleasant and cooperative Lungs: Respirations even and unlabored, symmetrical chest expansion Eyes: PERRL Musculoskeletal: Flexion and extension of cervical [spine] somewhat guarded secondary to pain, [antalgic gait noted] positive Spurling's test Neurological: Speech clear, no gross sensory deficit Has patient had previous pain injection?: No Conservative treatment options previously tried: Home exercise plan Length of treatment: Longer than 12 weeks Meds Home Medications and Allergies Home Medications ?Medication ?Instructions ?Recorded ?Confirmed ?Type sucralfate 1 gram tablet 1 g PO QID 11/22/23 09/26/24 History levothyroxine 75 mcg tablet 75 mcg PO DAILY Supplement #90 tabs 04/20/24 09/26/24 Rx (Euthyrox) lisinopril 20 1 tab PO DAILY Hypertension #90 06/13/24 09/26/24 Rx mg-hydrochlorothiazide 12.5 mg tabs tablet meloxicam 15 mg tablet 15 mg PO DAILY #90 tabs 07/06/24 09/26/24 Rx omeprazole 40 mg capsule,delayed 40 mg PO DAILY GERD #90 caps 08/11/24 09/26/24 Rx release New Prescriptions to Start Prescriptions: Allergies Allergy/AdvReac Type Severity Reaction Status Date / Time No Known Allergies Allergy Verified 09/26/24 10:43 Assessment and Plan *Assessment and plan (1) Cervical radiculopathy: Status: Acute Category: Medical Code(s): M54.12 - Radiculopathy, cervical region (2) Cervical spondylosis: Status: Acute Category: Medical Code(s): M47.812 - Spondylosis without myelopathy or radiculopathy, cervical region (3) Degenerative disc disease, cervical: Status: Chronic Category: Medical Code(s): M50.30 - Other cervical disc degeneration, unspecified cervical region Plan Patient is experiencing worsening pain throughout her neck with radiating numbness going down the left extremity. Patient did have limited range of motion and a positive Spurling's test during today's visit. I did review over risk and benefits of repeat cervical epidural steroid injection and she would like to proceed forward with this plan of care. Patient has tried and failed conservative treatment including oral medication, heat and ice, topicals, at home stretching exercise for longer than 12 weeks. Patient's last cervical epidural was in June that did provide 50% improvement and did get of overall increased function. Patient will be scheduled for repeat cervical epidural steroid injection C6 or C7 under fluoroscopy. Patient has been instructed to contact the clinic with any concerns before the next appointment. Dr. Little has reviewed this note and agrees with this plan of care. This note was dictated using voice recognition software and make contain errors or omissions. All injections are used with Lidocaine or Bupivacaine and Depo Medrol.
== END 2024-10-02 23:59 | disposition home or self-care (01) ==
LOC: SC.PAIN 10:24
PROVIDERS: PCP Internal Medicine; Visit Provider Nurse Practitioner Family
DX: M47.22 Other spondylosis with radiculopathy, cervical region (principal); M50.10 Cervical disc disorder with radiculopathy, unspecified cervical region; Z73.89 Other problems related to life management difficulty
CPT/HCPCS: 99212; G0463

== ENCOUNTER 2024-10-10 09:33 | Day surgery (SDC) | payer MEDICARE, OTHER, SELFPAY ==
[2024-10-10 10:06] VITALS: BP 145/76; PULSE 75; RESP 16; TEMP 36.3; O2SAT 99; BMI 25.7
[2024-10-10] MEDS: methylPREDNISolone ACETATE 80MG/ML VIAL 80 MG (10:10)
[2024-10-10] MEDS: IOPAMIDOL-200 (41%);10ML VIAL 2 ML IV (10:14)
--- NOTE | 2024-10-10 10:15 | P.PCN_ITS ---
Procedure Date: 10/10/24 Time: 10:00 Anesthesiologist:: Lang Watson CRNA Complications:: None Pre-procedure Diagnosis:: Degenerative disc cervical spine multilevels. Cervical radiculopathy. Post-procedure Diagnosis:: Same. Indications for Procedure:: Patient is a pleasant 64-year-old female who comes to clinic today for repeat cervical epidural steroid injection. She has had significant improvement terms of her overall cervical neck pain as well as bilateral arm radicular symptoms w ith previous injections. She rates her pain today 6/10. She reports cervical neck pain as well as bilateral arm radicular symptoms. She does Procedure Details:: Procedure:Cervical epidural steroid injection Informed consent was obtained and the risks and benefits of the procedure were explained to the patient. The patient was taken to the procedure room and noninvasive monitors placed, including noninvasive blood pressure cuff and pulse oximeter. The neck was prepped using Chloraprep as a cleansing solution. The C6- C7 interspace was viewed using fluroscopy. The skin and subcutaneous tissues were anesthetized using lidocaine 1.5% and a 25-gauge needle. After this an 18- gauge Touhy epidural needle was placed into the C6-C7 interspace under fluroscopy guidance and advanced using loss of resistance to air until the epidural space was encountered. After confirmation of needle placement in the epidural space using contrast dye, a solution containing normal saline, 2 mL and Depo-Medrol 80 mg was incrementally injected into the cervical epidural space.~ The patient tolerated the procedure well with no complications. The patient was observed in the Pain Clinic and then discharged home neurologically intact. Plan and Disposition:: Patient was discharged without incident.
[2024-10-10 10:18] VITALS: BP 148/74; PULSE 69; RESP 16; O2SAT 96
== END 2024-10-10 10:18 | disposition home or self-care (01) ==
PROVIDERS: PCP Internal Medicine; Visit Provider Nurse Anesthetist, Certified Registered
DX: M50.30 Other cervical disc degeneration, unspecified cervical region (principal); M54.12 Radiculopathy, cervical region
CPT/HCPCS: 62321; J1010; Q9966

== ENCOUNTER 2024-11-29 16:18 | Outpatient (CLI) | payer MEDICARE, OTHER, SELFPAY ==
[2024-11-29 16:46] LABS: Microalbumin/Creatinine Ratio 10.5
[2024-11-29 17:00] LABS: Creatinine,Urine Random 90 mg/dL (Not Estab.)
[2024-11-29 17:04] LABS: Hemoglobin 13.1 g/dL (12.2-16.2); Red Blood Count 4.36 M/mm3 (4.20-5.40); White Blood Count 8.3 K/mm3 (4.8-10.8)
[2024-11-29 17:05] LABS: Hematocrit 41.5 % (37.0-47.0); Mean Corpuscular Volume 95.2 fl (81-99)
[2024-11-29 17:07] LABS: Mean Corpuscular HGB Conc 31.6 g/dL (31.8-35.4)
[2024-11-29 17:08] LABS: Eosinophils % 6.5 % (0.1-12.0); Lymphocytes % 23.2 % (10-50); Mean Platelet Volume 9.9 fl (7.4-10.4); Monocytes % 6.2 % (1.7-9.3); Neutrophils % 63.3 % (37.0-80.0); Platelet Count 315 K/mm3 (142-424); Red Cell Distribution Width 13.5 % (11.5-17.5)
[2024-11-29 17:09] LABS: Basophils # 0.1 K/mm3 (0-0.2); Basophils % 0.6 % (0.1-2.0); Eosinophils # 0.5 K/mm3 (0.0-0.4); Lymphocytes # 1.9 K/mm3 (0.7-4.5); Monocytes # 0.5 K/mm3 (0.1-1.0); Neutrophils # 5.2 K/mm3 (1.8-7.8)
[2024-11-29 17:10] LABS: Alanine Aminotransferase 33 U/L (12-78); Albumin Level 4.4 g/dl (3.5-5.0); Albumin/Globulin Ratio 1.6 (1.1-1.8); Alkaline Phosphatase 88 U/L (38-126); Anion Gap 13.8 mEq/L (5-15); Aspartate Amino Transferase 32 U/L (14-36); Bilirubin,Total 0.3 mg/dl (0.2-1.3); Blood Urea Nitrogen 29 mg/dl (7-17); Calcium 9.2 mg/dl (8.4-10.2); Carbon Dioxide 26 mmol/L (22.0-30.0); Chloride 104 mmol/L (98-107); Cholesterol 215 mg/dl (140-200); Estimated Glomerular Filt Rate 55 ml/min (>60); GFR (African American) 67 ML/MIN (>60); Globulin 2.7 g/dL (1.3-3.2); Glucose 79 mg/dl (74-100); HDL Cholesterol 43 mg/dl (40-60); Potassium 4.8 mmoL/L (3.5-5.1); Sodium 139 mmol/L (136-145); Total Protein,Serum 7.1 g/dl (6.3-8.2); Triglycerides 238 mg/dl (30-150); VLDL Cholesterol 48 mg/dL (0-40)
[2024-11-29 17:20] LABS: Direct LDL Cholesterol 102.57 mg/dL (100-129)
[2024-11-29 17:39] LABS: Thyroid Stimulating Hormone 2.38 uIU/mL (0.465-4.68)
== END 2024-11-29 23:59 | disposition home or self-care (01) ==
LOC: LAB.DROPOF 16:18
PROVIDERS: PCP Internal Medicine; Visit Provider Internal Medicine
DX: I10 Essential (primary) hypertension (principal); E78.5 Hyperlipidemia, unspecified; E03.9 Hypothyroidism, unspecified; R79.89 Other specified abnormal findings of blood chemistry; K21.9 Gastro-esophageal reflux disease without esophagitis; M47.22 Other spondylosis with radiculopathy, cervical region; E66.9 Obesity, unspecified; Z68.27 Body mass index [BMI] 27.0-27.9, adult
CPT/HCPCS: 80053; 80061; 82043; 82570; 84443; 85025

== ENCOUNTER 2024-12-25 16:10 | Outpatient (CLI) | payer MEDICARE, OTHER, SELFPAY ==
[2024-12-25 17:38] LABS: Basophils # 0.1 K/mm3 (0-0.2); Basophils % 0.4 % (0.1-2.0); Eosinophils # 0.3 K/mm3 (0.0-0.4); Hematocrit 38.2 % (37.0-47.0); Hemoglobin 12.7 g/dL (12.2-16.2); Lymphocytes # 2.4 K/mm3 (0.7-4.5); Lymphocytes % 18.3 % (10-50); Mean Corpuscular HGB Conc 33.2 g/dL (31.8-35.4); Mean Corpuscular Hemoglobin 30.4 pg (27.0-31.2); Mean Corpuscular Volume 91.4 fl (81-99); Monocytes # 0.9 K/mm3 (0.1-1.0); Monocytes % 6.7 % (1.7-9.3); Neutrophils # 9.4 K/mm3 (1.8-7.8); Neutrophils % 72.2 % (37.0-80.0); Platelet Count 356 K/mm3 (142-424); Red Blood Count 4.18 M/mm3 (4.20-5.40); Red Cell Distribution Width 12.9 % (11.5-17.5)
[2024-12-25 20:08] LABS: Amylase 112 U/L (30-110)
== END 2024-12-25 23:59 | disposition home or self-care (01) ==
LOC: LAB.DROPOF 12-27 12:45
PROVIDERS: PCP Internal Medicine; Visit Provider Internal Medicine
DX: R10.13 Epigastric pain (principal); K21.9 Gastro-esophageal reflux disease without esophagitis
CPT/HCPCS: 82150; 85025

== ENCOUNTER 2024-12-29 11:05 | Outpatient (CLI) | payer MEDICARE, OTHER, SELFPAY ==
--- NOTE | 2024-12-29 11:12 | CT_ITS ---
FINAL REPORT TECHNIQUE: Axial CT images were performed from the lung bases through the iliac crests. Coronal and sagittal reformats were submitted.This study was performed with techniques to keep radiation doses as low as reasonably achievable (ALARA). Individualized dose reduction techniques using automated exposure control or adjustment of mA and/or kV according to the patient''''s size were employed. CLINICAL HISTORY: Epigastric pain, consider pancreatitis COMPARISON: 11/23/2022 FINDINGS: There is mild fatty infiltration of the liver. There are no CT changes of pancreatitis. Small parapelvic cyst is seen of the left kidney. The remaining solid organs are normal. The patient is status postcholecystectomy. There is no biliary obstruction. The bowel is without acute abnormality. The appendix is normal. IMPRESSION: No CT changes of pancreatitis or associated complications. Reviewed, Interpreted and Dictated by Faith Gillespie MD Transcribed by Janine Abbott Authenticated and . [facility]
== END 2024-12-29 23:59 | disposition home or self-care (01) ==
LOC: RAD 11:07
PROVIDERS: PCP Internal Medicine; Visit Provider Internal Medicine
DX: R10.13 Epigastric pain (principal); R74.8 Abnormal levels of other serum enzymes
CPT/HCPCS: 74150

== ENCOUNTER 2025-03-01 16:56 | Outpatient (CLI) | payer MEDICARE, OTHER, SELFPAY ==
--- OUTSIDE RECORDS SUMMARY | 2025-03-01 16:59 | XMS_ITS ---
Author Organization Unknown TREATMENT PLAN [facility] Start Date Provider Encounter for Check-up [id number] [facility]
--- NOTE | 2025-03-01 17:01 | MR_ITS ---
PROCEDURE INFORMATION: Exam: MR Cervical Spine Without Contrast Exam date and time: 03/01/2025 5:01 PM Age: 65 years old Clinical indication: Neck pain with pain/ tingling and numbness down left arm to elbow TECHNIQUE: Imaging protocol: Magnetic resonance imaging of the cervical spine without contrast. COMPARISON: No relevant prior studies available. FINDINGS: Bones/joints: 2 mm of grade 1 degenerative anterolisthesis of T2 on T3 and T3 on T4. No acute fracture seen. Spinal cord: Normal signal. No cord compression. Disc desiccation throughout. Disc height loss and spondylosis is moderate at C4-C5 and C5-C6, [id number] at C6-C7. C2-C3: Mild facet arthropathy. No stenoses. C3-C4: Mild disc bulge. The central spinal canal is patent. Mild uncovertebral and facet arthropathy not contributing to significant foraminal stenoses. C4-C5: Mild disc osteophyte complex and ligamentum flavum buckling. No significant central spinal canal stenosis. Uncovertebral and facet arthropathy causing moderate bilateral neural foraminal stenoses. C5-C6: Disc osteophyte complex and ligamentum flavum buckling causing mild central spinal canal stenosis. Uncovertebral and facet arthropathy probably causing moderate to severe right and moderate left neural foraminal stenoses. Some limitations assessing the foramina due to motion artifacts. C6-C7: Disc osteophyte complex. There may be a small component of left paracentral soft disc protrusion. Central spinal canal stenosis is mild. Uncovertebral and facet arthropathy probably causing mild bilateral neural foraminal stenoses. Some limitations in assessing this level due to motion artifacts. C7-T1: Mild disc bulge and ligamentum flavum buckling. A subtle central disc protrusion. The central spinal canal remains patent. No significant foraminal stenoses. Soft tissues: Unremarkable. Vasculature: Not well assessed on this protocol. IMPRESSION: 1. Images are motion degraded. 2. Degenerative changes and stenoses are detailed above.
== END 2025-03-01 23:59 | disposition home or self-care (01) ==
LOC: RAD 16:58
PROVIDERS: PCP Internal Medicine; Visit Provider Orthopaedic Surgery
DX: M54.2 Cervicalgia (principal)
CPT/HCPCS: 72141